=== PATIENT | male | born 1995 | race Caucasian/White ===

== ENCOUNTER 2017-04-24 12:03 | Emergency (ER) | payer BC ==
[2017-04-24] MEDS ORDERED: IBUPROFEN 600 MG TAB PO STA (12:48)
[2017-04-24] MEDS ORDERED: HYDROcodone/APAP 5-325MG 1 EACH TAB PO STA (12:49)
--- NOTE | 2017-04-24 12:57 | ED ---
Fall HPI - General Chief Complaint: Fall Stated Complaint: Fall Time Seen by Provider: 04/24/17 12:42 Source: patient, RN notes reviewed Mode of arrival: ambulatory - History of Present Illness Initial Comments: Patient is 22-year-old male presents to the emergency room for evaluation of fall injury. Patient states he was on a ladder doing work and fell backwards landing on his tailbone. Patient does state he landed on the cement. Patient denies head trauma or loss of consciousness. Patient states he got up and continued doing his yard work. Patient states the pain became more intense in his tailbone and radiating through his right hip. Patient states he is having 9 out of 10 pain. Patient states it hurts to walk. Patient states he now having some tingling going down his right leg. Patient denies leg weakness. Patient denies saddle anesthesia. Patient has urine or fecal incontinence. Patient denies taking anything for pain. Patient denies any other injuries during incident. Patient denies any history of low back pain. - Related Data Home Medications Medication Instructions Recorded Confirmed Dronabinol [Marinol] 2.5 mg PO TID 04/24/17 04/24/17 Ondansetron Odt [Zofran Odt] 4 mg PO Q8HR PRN 04/24/17 04/24/17 Previous Rx's Medication Instructions Recorded HYDROcodone/APAP 5-325MG [Seibert 1 tab PO Q6HR PRN #12 tab 04/24/17 5-325] Ibuprofen [Motrin] 600 mg PO Q6HR PRN #20 tab 04/24/17 Allergies Allergy/AdvReac Type Severity Reaction Status Date / Time No Known Allergies Allergy Verified 04/24/17 12:33 Review of Systems ROS Statement: Those systems with pertinent positive or pertinent negative responses have been documented in the HPI. ROS Other: All systems not noted in ROS Statement are negative. Past Medical History Additional Past Medical History / Comment(s): colitis History of Any Multi-Drug Resistant Organisms: None Reported Past Surgical History: No Surgical Hx Reported Past Psychological History: ADD/ADHD Smoking Status: Former smoker Past Alcohol Use History: Occasional Past Drug Use History: None Reported General Exam - General Exam Comments Initial Comments: Sitting on exam bed, no acute distress. Limitations: no limitations General appearance: alert, in no apparent distress Head exam: Present: atraumatic, normocephalic, normal inspection Eye exam: Present: normal appearance ENT exam: Present: normal exam Neck exam: Present: normal inspection Respiratory exam: Present: normal lung sounds bilaterally. Absent: respiratory distress Cardiovascular Exam: Present: regular rate, normal rhythm, normal heart sounds GI/Abdominal exam: Present: soft Extremities exam: Present: normal inspection Back exam: Present: vertebral tenderness (Lumbosacral spine and over the coccyx bone) Neurological exam: Present: alert, oriented X3, CN II-XII intact Psychiatric exam: Present: normal affect, normal mood Skin exam: Present: warm, dry, intact, normal color. Absent: rash Course Vital Signs 04/24/17 12:30 Temperature 97.4 F L Pulse Rate 87 Respiratory 17 Rate Blood Pressure 128/70 O2 Sat by Pulse 94 L Oximetry Medical Decision Making - Medical Decision Making Patient is a 22-year-old male presents emergency room for evaluation of fall injury. Patient complaining of low back and coccyx pain radiating into his right hip and leg. X-ray showed no acute findings, compression fractures. Patient noted to have spondylolisthesis of L5-S1. Results discussed with patient. Advised patient to ice and to rest. Will send patient home with pain medications and advised to return for worsening symptoms. Patient has no neuro deficits at this time. Patient states he understands everything that was discussed with him. Case discussed with Dr. Boyd. - Radiology Data Radiology results: report reviewed, image reviewed Disposition Clinical Impression: Spondylolisthesis at L5-S1 level, Fall, Contusion of coccyx Disposition: HOME SELF-CARE Condition: Good Instructions: Coccyx Injury (ED), Spondylolisthesis (ED) Additional Instructions: Take ibuprofen as needed for pain. Take Seibert as needed for severe pain. Ice on and off for 20 minutes at a time. Refrain from heavy lifting or strenuous physical activity. Please follow up with primary care provider in 1-2 days. If any new symptom arises or symptoms worsen, return to ER as soon as possible. Prescriptions: HYDROcodone/APAP 5-325MG [Seibert 5-325] 1 tab PO Q6HR PRN #12 tab PRN Reason: Pain Ibuprofen [Motrin] 600 mg PO Q6HR PRN #20 tab PRN Reason: Pain Referrals: Parker Hurt MD [Primary Care Provider] - 1-2 days Time of Disposition: 14:11
--- NOTE | 2017-04-24 13:28 | XR ---
Right hip HISTORY: Trauma and pain 2 views of the right hip, no comparisons Bone mineralization, joint spaces and alignment are maintained IMPRESSION: No fracture or dislocation is evident. Follow-up as indicated.
--- NOTE | 2017-04-24 13:38 | XR ---
EXAMINATION TYPE: XR sacrum coccyx DATE OF EXAM: 04/24/2017 COMPARISON: CT abdomen and pelvis January 01, 2015. HISTORY: Pain. TECHNIQUE: 2 views of sacrum and coccyx are obtained. FINDINGS: No acute displaced sacral or coccygeal fractures are identified. Sacral alar maintained. Sa croiliac joints are symmetric and felt within normal limits. Overlying soft tissue is unremarkable. IMPRESSION: Unremarkable study.
--- NOTE | 2017-04-24 14:00 | XR ---
Lumbosacral spine HISTORY: Pain 5 views of the lumbosacral spine There is spondylolysis bilaterally at L5. Anterolisthesis grade 1 is present at L5-S1, there is assoc iated loss of disc height. Lumbar vertebral bodies show preserved height and bone mineralization. The re is a gentle spinal curvature. IMPRESSION: Spondylolysis bilaterally at L5, spondylolisthesis L5-S1 with associated loss of disc hei ght.
[2017-04-24 14:27] VITALS: BP 111/68; PULSE 72; RESP 18; TEMP 98.3
== END 2017-04-24 14:27 | disposition home or self-care (01) ==
LOC: EC 12:03
DX: S30.0XXA Contusion of lower back and pelvis, initial encounter (principal); M43.17 Spondylolisthesis, lumbosacral region; M25.551 Pain in right hip; Z87.891 Personal history of nicotine dependence; Z79.899 Other long term (current) drug therapy; W11.XXXA Fall on and from ladder, initial encounter; Y92.009 Unspecified place in unspecified non-institutional (private) residence as the place of occurrence of the external cause; Y93.89 Activity, other specified
CPT/HCPCS: 72110; 72220; 73502; 99283

== ENCOUNTER 2018-10-09 17:17 | Emergency (ER) | payer BC ==
--- NOTE | 2018-10-09 18:02 | ED ---
General Adult HPI - General Chief complaint: Urogenital Stated complaint: Dysuria Time Seen by Provider: 10/09/18 17:52 Source: patient, RN notes reviewed Mode of arrival: ambulatory Limitations: no limitations - History of Present Illness Initial comments: Patient is a pleasant 23-year-old male presenting to the emergency Department with complaints of dysuria. Onset was this morning. Discomfort is only with urination. Patient denies any abdominal discomfort. Patient states there is an area of discomfort in the right inguinal region where he did feel a small knot. He states this is tender. No trauma. No history of similar symptoms previously. No urethral discharge. No fever. - Related Data Previous Rx's Medication Instructions Recorded Phenazopyridine [Pyridium] 200 mg PO TID #5 tablet 10/09/18 Sulfamethox-Tmp 800-160Mg [Bactrim 1 each PO Q12HR #20 tab 10/09/18 DS 800-160 mg] Allergies Allergy/AdvReac Type Severity Reaction Status Date / Time No Known Allergies Allergy Verified 10/09/18 17:57 Review of Systems ROS Statement: Those systems with pertinent positive or pertinent negative responses have been documented in the HPI. ROS Other: All systems not noted in ROS Statement are negative. Constitutional: Denies: fever Eyes: Denies: eye pain ENT: Denies: ear pain Respiratory: Denies: cough Cardiovascular: Denies: chest pain Endocrine: Denies: fatigue Gastrointestinal: Denies: abdominal pain, nausea, vomiting Genitourinary: Reports: dysuria. Denies: discharge Musculoskeletal: Denies: back pain Skin: Denies: rash Past Medical History Additional Past Medical History / Comment(s): colitis History of Any Multi-Drug Resistant Organisms: None Reported Past Surgical History: No Surgical Hx Reported Past Psychological History: ADD/ADHD Smoking Status: Former smoker Past Alcohol Use History: None Reported, Occasional Past Drug Use History: Marijuana General Exam Limitations: no limitations General appearance: alert, in no apparent distress Head exam: Present: atraumatic Eye exam: Present: normal appearance Neck exam: Present: normal inspection Respiratory exam: Present: normal lung sounds bilaterally Cardiovascular Exam: Present: regular rate, normal rhythm GI/Abdominal exam: Present: soft. Absent: tenderness exam: Present: normal inspection, testicular tenderness (Mild tenderness right testicle), other (Right inguinal with less than 1 cm nodular subcutaneous mobile area consistent with lymphadenopathy). Absent: scrotal swelling Extremities exam: Present: normal inspection Neurological exam: Present: alert Psychiatric exam: Present: normal affect, normal mood Skin exam: Present: normal color Course Vital Signs 10/09/18 10/09/18 17:36 19:50 Temperature 98.4 F 98.3 F Pulse Rate 83 84 Respiratory 18 16 Rate Blood Pressure 132/82 138/75 O2 Sat by Pulse 98 97 Oximetry Medical Decision Making - Medical Decision Making Patient reevaluated and resting comfortably in bed. Patient updated on results and need for follow-up. Patient is made aware of pending cultures and recommended follow-up with primary care physician. - Lab Data Lab Results 10/09/18 Range/Units 18:00 Urine Color Yellow Urine Appearance Cloudy (Clear) Urine pH 6.5 (5.0-8.0) Ur Specific [place] 1.020 (1.001-1.035) Urine Protein 1+ H (Negative) Urine Glucose (UA) Negative (Negative) Urine Ketones Trace H (Negative) Urine Blood Negative (Negative) Urine Nitrite Negative (Negative) Urine Bilirubin Negative (Negative) Urine Urobilinogen 2.0 (<2.0) mg/dL Ur Leukocyte Esterase Moderate H (Negative) Urine RBC 1 (0-5) /hpf Urine WBC 12 H (0-5) /hpf Ur Squamous Epith Cells 4 (0-4) /hpf Calcium Oxalate Crystal Few H (None) /hpf Hyaline Casts 8 H (0-2) /lpf Urine Mucus Many H (None) /hpf - Radiology Data Radiology results: report reviewed (Scrotal ultrasound shows no acute process.) , image reviewed (KUB reveals no acute process) Disposition Clinical Impression: Dysuria Disposition: HOME SELF-CARE Condition: Stable Instructions: Urinary Tract Infection in Men (ED) Additional Instructions: Please follow-up with primary care physician in the next couple days for recheck. Have primary care physician check for cultures. Return for fevers, increased pain, abdominal pain, worsening change in symptoms or other concerns. Prescriptions: Phenazopyridine [Pyridium] 200 mg PO TID #5 tablet Sulfamethox-Tmp 800-160Mg [Bactrim DS 800-160 mg] 1 each PO Q12HR #20 tab Is patient prescribed a controlled substance at d/c from ED?: No Referrals: Parker Hurt MD [Primary Care Provider] - 1-2 days Time of Disposition: 20:03
[2018-10-09 18:18] LABS: Appearance,Urine Cloudy (Clear); Bilirubin,Urine Negative (Negative); Blood,Urine Negative (Negative); Calcium Oxalate Crystals,Urine Few /hpf; Color,Urine Yellow; Glucose,Urine (UA) Negative (Negative); Hyaline Casts,Urine 8 /lpf (0-2); Ketones,Urine Trace (Negative); Leukocyte Esterase,Urine Moderate (Negative); Mucus,Urine Many /hpf; Nitrite,Urine Negative (Negative); PH, Urine 6.5 (5.0-8.0); Protein,Urine 1+ (Negative); RBC,Urine 1 /hpf (0-5); Squamous Epithelial Cell,Urine 4 /hpf (0-4); WBC,Urine 12 /hpf (0-5)
--- NOTE | 2018-10-09 19:17 | US ---
EXAMINATION TYPE: US scrotum with doppler. Grayscale and color Doppler Duplex imaging performed of t jocelyn scrotum. DATE OF EXAM: 10/09/2018 COMPARISON: NONE CLINICAL HISTORY: Pain. patient states no scrotal pain, but RLQ pain during urination EXAM MEASUREMENTS: TESTICLES: Right Testicle: 4.7 x 3.1 x 2.5cm Left Testicle: 4.4 x 3.1 x 2.2cm EPIDIDYMIS HEAD: Right Epididymis: 1.3cm Left Epididymis: 1.2cm Doppler performed to assess for testicular vascularity; good bilateral color flow and waveforms are s een. There is no evidence of testicular torsion. Presence of hydroceles: no Presence of varicoceles: no IMPRESSION: No acute process.
--- NOTE | 2018-10-09 19:45 | XR ---
EXAMINATION TYPE: XR KUB portable, 2 supine views DATE OF EXAM: 10/09/2018 COMPARISON: 01/21/1949 HISTORY: Right-sided groin pain today TECHNIQUE: 2 supine views FINDINGS: There are no acute skeletal or soft tissue findings. The bowel gas pattern is negative, although gas distended stomach at the moment of x-ray exposure is appreciated. There is no evident pneumatosis. Pneumoperitoneum cannot be excluded with supine radiogr aphy. IMPRESSION: NEGATIVE EXAMINATION, DISCUSSED.
[2018-10-09 19:52] VITALS: BP 138/75; PULSE 84; RESP 16; TEMP 98.3
[2018-10-09] MEDS ORDERED: PHENAZOPYRIDINE 200 MG TAB PO STA (19:53)
[2018-10-11 01:26] LABS: C. trachomatis,PCR Negative (Neg,Equiv); Chlamydia trachomatis Source Urine; N. gonorrhoeae,PCR Negative (Neg,Equiv); Neisseria Source Urine
== END 2018-10-09 20:28 | disposition home or self-care (01) ==
LOC: EC 17:17
DX: R30.0 Dysuria (principal); Z87.19 Personal history of other diseases of the digestive system; Z87.891 Personal history of nicotine dependence
CPT/HCPCS: 74018; 76870; 81001; 87086; 87491; 87591; 93975; 99284

== ENCOUNTER 2019-02-17 12:08 | Inpatient (IN) | payer BC ==
[2019-02-17] MEDS ORDERED: ONDANSETRON 4 MG/2 ML VIAL IVP STA (12:52)
[2019-02-17] MEDS ORDERED: HYDROmorphone 1 MG/ML 1 ML SYRINGE IVP STA (12:52)
[2019-02-17] MEDS ORDERED: SODIUM CHLORIDE 0.9% 1,000 ML IV STA (12:52)
--- NOTE | 2019-02-17 12:54 | ED ---
General Adult HPI - General Chief complaint: Abdominal Pain Stated complaint: abdominal pain Time Seen by Provider: 02/17/19 12:20 Source: patient, RN notes reviewed Mode of arrival: ambulatory - History of Present Illness Initial comments: Patient is a pleasant 23-year-old male presenting to the emergency Department with right-sided abdominal discomfort. Patient does have history of ulcerative colitis with similar symptoms previously. Onset of symptoms was around 4 AM. Discomfort is worse than since that time. Discomfort does increase with movement. Patient has had nausea with an episode of emesis. patient diarrhea. No dysuria or hematuria. No fever. - Related Data Previous Rx's Medication Instructions Recorded Phenazopyridine [Pyridium] 200 mg PO TID #5 tablet 10/09/18 Sulfamethox-Tmp 800-160Mg [Bactrim 1 each PO Q12HR #20 tab 10/09/18 DS 800-160 mg] Allergies Allergy/AdvReac Type Severity Reaction Status Date / Time No Known Allergies Allergy Verified 02/17/19 12:19 Review of Systems ROS Statement: Those systems with pertinent positive or pertinent negative responses have been documented in the HPI. ROS Other: All systems not noted in ROS Statement are negative. Constitutional: Denies: fever, chills Eyes: Denies: eye pain ENT: Denies: ear pain Respiratory: Denies: cough, dyspnea Cardiovascular: Denies: chest pain Endocrine: Denies: fatigue Gastrointestinal: Reports: abdominal pain, nausea, vomiting Genitourinary: Denies: dysuria Musculoskeletal: Denies: back pain Skin: Denies: rash Neurological: Denies: weakness Past Medical History Additional Past Medical History / Comment(s): colitis kidney stones History of Any Multi-Drug Resistant Organisms: None Reported Past Surgical History: No Surgical Hx Reported Past Psychological History: ADD/ADHD Smoking Status: Current some day smoker Past Alcohol Use History: None Reported, Occasional Past Drug Use History: Marijuana General Exam Limitations: no limitations General appearance: alert, in no apparent distress Head exam: Present: atraumatic Eye exam: Present: normal appearance, PERRL ENT exam: Present: normal oropharynx Neck exam: Present: normal inspection Respiratory exam: Present: normal lung sounds bilaterally Cardiovascular Exam: Present: regular rate, normal rhythm Expanded Peripheral pulses: 2+: Posterior Tibialis (R), Posterior Tibialis (L), Dorsalis Pedis (R), Dorsalis Pedis (L) GI/Abdominal exam: Present: soft, tenderness (Mild to moderate tenderness right side of the abdomen). Absent: distended, guarding, rebound, rigid Extremities exam: Present: normal inspection. Absent: pedal edema, calf tenderness Neurological exam: Present: alert Psychiatric exam: Present: normal affect, normal mood Skin exam: Present: normal color Course Vital Signs 02/17/19 02/17/19 02/17/19 12:16 14:22 15:30 Temperature 97.9 F Pulse Rate 98 75 57 L Respiratory 16 18 18 Rate Blood Pressure 148/88 138/82 141/62 O2 Sat by Pulse 98 95 98 Oximetry Medical Decision Making - Medical Decision Making Patient reevaluated twice and still with continued symptoms. Patient updated on results and plan. Dr. cooley has been paged, covering for Dr. Hurt. - Lab Data Result diagrams: 02/17/19 13:13 02/17/19 13:13 Lab Results 02/17/19 02/17/19 02/17/19 Range/Units 13:13 13:13 13:13 WBC 9.1 (3.8-10.6) k/uL RBC 5.26 (4.30-5.90) m/uL Hgb 15.7 (13.0-17.5) gm/dL Hct 47.0 (39.0-53.0) % MCV 89.3 (80.0-100.0) fL MCH 29.9 (25.0-35.0) pg MCHC 33.5 (31.0-37.0) g/dL RDW 12.4 (11.5-15.5) % Plt Count 270 (150-450) k/uL Neutrophils % 74 % Lymphocytes % 18 % Monocytes % 5 % Eosinophils % 2 % Basophils % 0 % Neutrophils # 6.7 (1.3-7.7) k/uL Lymphocytes # 1.6 (1.0-4.8) k/uL Monocytes # 0.4 (0-1.0) k/uL Eosinophils # 0.1 (0-0.7) k/uL Basophils # 0.0 (0-0.2) k/uL PT 10.7 (9.0-12.0) sec INR 1.0 (<1.2) APTT 30.0 (22.0-30.0) sec Sodium 136 L (137-145) mmol/L Potassium 4.5 (3.5-5.1) mmol/L Chloride 98 (98-107) mmol/L Carbon Dioxide 28 (22-30) mmol/L Anion Gap 10 mmol/L BUN 5 L (9-20) mg/dL Creatinine 0.76 (0.66-1.25) mg/dL Est GFR (CKD-EPI)AfAm >90 (>60 ml/min/1.73 sqM) Est GFR (CKD-EPI)NonAf >90 (>60 ml/min/1.73 sqM) Glucose 92 (74-99) mg/dL Calcium 10.0 (8.4-10.2) mg/dL Total Bilirubin 0.8 (0.2-1.3) mg/dL AST 26 (17-59) U/L ALT 32 (21-72) U/L Alkaline Phosphatase 64 (38-126) U/L Total Protein 8.0 (6.3-8.2) g/dL Albumin 4.7 (3.5-5.0) g/dL Amylase 55 (30-110) U/L Lipase 24 (23-300) U/L Urine Color Urine Appearance (Clear) Urine pH (5.0-8.0) Ur Specific [place] (1.001-1.035) Urine Protein (Negative) Urine Glucose (UA) (Negative) Urine Ketones (Negative) Urine Blood (Negative) Urine Nitrite (Negative) Urine Bilirubin (Negative) Urine Urobilinogen (<2.0) mg/dL Ur Leukocyte Esterase (Negative) 02/17/19 Range/Units 13:13 WBC (3.8-10.6) k/uL RBC (4.30-5.90) m/uL Hgb (13.0-17.5) gm/dL Hct (39.0-53.0) % MCV (80.0-100.0) fL MCH (25.0-35.0) pg MCHC (31.0-37.0) g/dL RDW (11.5-15.5) % Plt Count (150-450) k/uL Neutrophils % % Lymphocytes % % Monocytes % % Eosinophils % % Basophils % % Neutrophils # (1.3-7.7) k/uL Lymphocytes # (1.0-4.8) k/uL Monocytes # (0-1.0) k/uL Eosinophils # (0-0.7) k/uL Basophils # (0-0.2) k/uL PT (9.0-12.0) sec INR (<1.2) APTT (22.0-30.0) sec Sodium (137-145) mmol/L Potassium (3.5-5.1) mmol/L Chloride (98-107) mmol/L Carbon Dioxide (22-30) mmol/L Anion Gap mmol/L BUN (9-20) mg/dL Creatinine (0.66-1.25) mg/dL Est GFR (CKD-EPI)AfAm (>60 ml/min/1.73 sqM) Est GFR (CKD-EPI)NonAf (>60 ml/min/1.73 sqM) Glucose (74-99) mg/dL Calcium (8.4-10.2) mg/dL Total Bilirubin (0.2-1.3) mg/dL AST (17-59) U/L ALT (21-72) U/L Alkaline Phosphatase (38-126) U/L Total Protein (6.3-8.2) g/dL Albumin (3.5-5.0) g/dL Amylase (30-110) U/L Lipase (23-300) U/L Urine Color Light Yellow Urine Appearance Clear (Clear) Urine pH 6.5 (5.0-8.0) Ur Specific [place] 1.005 (1.001-1.035) Urine Protein Negative (Negative) Urine Glucose (UA) Negative (Negative) Urine Ketones Negative (Negative) Urine Blood Negative (Negative) Urine Nitrite Negative (Negative) Urine Bilirubin Negative (Negative) Urine Urobilinogen <2.0 (<2.0) mg/dL Ur Leukocyte Esterase Negative (Negative) - Radiology Data Radiology results: report reviewed (Computed tomography scan of the abdomen and pelvis shows air filled colon, otherwise no acute process.), image reviewed (Abdominal x-ray reveals no acute process. Increased air in the intestines.) Disposition Clinical Impression: Abdominal pain Disposition: ADMITTED IP TO THIS HOSP Is patient prescribed a controlled substance at d/c from ED?: No Referrals: Parker Hurt MD [Primary Care Provider] - 1-2 days Decision Time: 16:04
[2019-02-17 13:25] LABS: Appearance,Urine Clear (Clear); Bilirubin,Urine Negative (Negative); Blood,Urine Negative (Negative); Color,Urine Light Yellow; Glucose,Urine (UA) Negative (Negative); Ketones,Urine Negative (Negative); Leukocyte Esterase,Urine Negative (Negative); Nitrite,Urine Negative (Negative); PH, Urine 6.5 (5.0-8.0); Protein,Urine Negative (Negative); Specific Gravity,Urine 1.005 (1.001-1.035); Urobilinogen,Urine <2.0 mg/dL (<2.0)
[2019-02-17 13:26] LABS: Basophils % (A) 0 %; Eosinophils # (A) 0.1 k/uL (0-0.7); Eosinophils % (A) 2 %; HGB 15.7 gm/dL (13.0-17.5); Lymphocytes # (A) 1.6 k/uL (1.0-4.8); Lymphocytes % (A) 18 %; MCH 29.9 pg (25.0-35.0); MCHC 33.5 g/dL (31.0-37.0); MCV 89.3 fL (80.0-100.0); Mean Platelet Volume 6.4; Monocytes # (A) 0.4 k/uL (0-1.0); Monocytes % (A) 5 %; Neutrophils # (A) 6.7 k/uL (1.3-7.7); Neutrophils % (A) 74 %; Platelet Count 270 k/uL (150-450); RBC 5.26 m/uL (4.30-5.90); RDW 12.4 % (11.5-15.5); WBC 9.1 k/uL (3.8-10.6)
[2019-02-17 13:36] LABS: ALT 32 U/L (21-72); AST 26 U/L (17-59); Albumin 4.7 g/dL (3.5-5.0); Alkaline Phosphatase 64 U/L (38-126); Amylase 55 U/L (30-110); Anion Gap 10 mmol/L; Blood Urea Nitrogen 5 mg/dL (9-20); Carbon Dioxide 28 mmol/L (22-30); Chloride 98 mmol/L (98-107); Glucose 92 mg/dL (74-99); Lipase 24 U/L (23-300); Potassium 4.5 mmol/L (3.5-5.1); Sodium 136 mmol/L (137-145); Total Bilirubin 0.8 mg/dL (0.2-1.3)
[2019-02-17 13:40] LABS: Prothrombin Time 10.7 sec (9.0-12.0)
--- NOTE | 2019-02-17 13:51 | CT ---
EXAMINATION TYPE: CT abdomen pelvis wo con DATE OF EXAM: 02/17/2019 COMPARISON: None INDICATION: Rt flank pain DLP: 376.1 mGycm, Automated exposure control for dose reduction was used. CONTRAST: 0 mL of Isovue 300. Study performed without Oral Contrast TECHNIQUE: Axial images were obtained from above the diaphragm to the pubic rami in the axial plane a t 5 mm thick sections. Reconstructed images are reviewed on the computer in the coronal plane. FINDINGS: Limited CT sections are obtained the lung bases. The lung bases are clear. CT ABDOMEN: Liver: Normal Spleen: Normal Pancreas: Normal Adrenal glands: The adrenal glands are normal. Gallbladder: Normal Kidneys: No masses are evident. No hydronephrosis is present. No cysts are present. No renal or ur eteral stones are identified. No hydroureter is evident. Aorta: Normal Inferior vena cava: Normal. CT PELVIS: Loops of bowel within the abdomen and pelvis are normal. Studies without oral contrast limiting b owel evaluation. The ascending colon is somewhat prominent with air-filled colon. Appendix: Normal as visualized. Urinary bladder: Normal. Genitourinary structures: Prostate is normal Osseous structures: No suspicious lytic or sclerotic lesions. IMPRESSIONS: 1. Air-filled colon. The appendix is normal. 2. No suspicious renal stones hydronephrosis or hydroureter.
--- NOTE | 2019-02-17 13:52 | XR ---
EXAMINATION TYPE: XR KUB DATE OF EXAM: 02/17/2019 COMPARISON: CT performed same date INDICATION: Abdominal pain right-sided TECHNIQUE: Single view abdomen upright view FINDINGS: There is a normal bowel gas pattern. There is prominent air through the colon. Cecum measures 8.7 cm. No obstruction is identified. No free air is evident. No suspicious differential air-fluid levels ar e evident. Some nonspecific small bowel gas containing air is left midabdomen. Psoas margins are normal. No organomegaly is present. IMPRESSION: 1. Nonspecific abdomen
[2019-02-17] MEDS ORDERED: DICYCLOMINE 10 MG/ML 2 ML AMP IM STA (14:05)
[2019-02-17] MEDS ORDERED: NALOXONE 0.4 MG/ML 1 ML VIAL IV PRN (16:05)
[2019-02-17] MEDS ORDERED: MORPHINE SULFATE 2 MG/ML SYRINGE IVP STA (16:05)
--- NOTE | 2019-02-17 16:55 | US ---
EXAMINATION TYPE: US gallbladder DATE OF EXAM: 02/17/2019 COMPARISON: CT CLINICAL HISTORY: Pain. Right abdominal pain EXAM MEASUREMENTS: Liver Length: 13.0 cm Gallbladder Wall: 0.2 cm CBD: 0.4 cm Right Kidney: 9.9 x 6.1x 5.3 cm Pancreas: Obscured by bowel gas Liver: wnl Gallbladder: wnl Evidence for sonographic Chew's sign: no CBD: wnl Right Kidney: No hydronephrosis or masses seen; initially limited views due to overlying bowel gas IMPRESSION: No gallstones or dilated ducts. Negative exam.
[2019-02-17 17:12] VITALS: BMI 22.0
[2019-02-17] MEDS: SODIUM CHLORIDE 0.9% 1,000 ML IV SCH (17:18)
[2019-02-17] MEDS: HYDROmorphone 1 MG/ML 1 ML SYRINGE IVP PRN (19:45)
[2019-02-18] MEDS: SODIUM CHLORIDE 0.9% 1,000 ML IV SCH ×3 (00:08→18:59)
[2019-02-18] MEDS: HYDROmorphone 1 MG/ML 1 ML SYRINGE IVP PRN ×4 (07:46→22:32)
[2019-02-18] MEDS: ONDANSETRON 4 MG/2 ML VIAL IVP PRN (07:46)
[2019-02-18] MEDS: PANTOPRAZOLE 40 MG/10 ML VIAL IV SCH (07:53)
[2019-02-18] MEDS ORDERED: KETOROLAC 30 MG/ML 1 ML VIAL IVP STA (12:18)
--- NOTE | 2019-02-18 15:02 | P.HPIM ---
History of Present Illness H&P Date: 02/18/19 Chief Complaint: Abdominal pain Patient is a 23-year-old male with a known history of ulcerative colitis diagnosed with colonoscopy, currently follows with gastroenterology at [facility], renal stones, ADD/ADHD and nicotine addiction and marijuana use came to ER with complaints of abdominal pain mainly right lower quadrant and also right flank pain. Patient says that he started having pain since yesterday around 4 AM which woke him up from sleep. Denied any fever or chills. Denied any diarrhea or bloody stools. She did have nausea and episode of vomiting. Pain gets worse with moving to the side. Denied any dysuria or hematuria. Denied any recent infection. No complaints of chest pain or shortness of breath. Denied any fall or injury. CT of the abdomen showed 8:15:. The appendix is normal. No suspicious renal stones, hydronephrosis or hydroureter. Ultrasound OF THE ABDOMEN SHOWED NO GALLSTONES ARE DILATED DUCTS. NEGATIVE EXAM. KUB x-ray showed nonspecific abdomen. Laboratory data within normal limits and new leukocytosis. Review of Systems Constitutional: Patient denies any fever or chills . No generalized weakness or weight loss. Abdomen: Patient does have nausea and episode of vomiting. Does have abdominal pain right lower quadrant and right flank pain. No diarrhea.. Cardiovascular: Patient denies any chest pain or short of breath no palpitations. Respiratory: patient denied any cough is from production. No shortness of breath Neurologic: Patient denied any numbness or tingling headache. Musculoskeletal: Patient denies any complaints of joint swelling or deformity. Skin: Negative Psychiatric: Negative Endocrine: No heat or cold intolerance. No recent weight gain. Genitourinary: No dysuria or hematuria. All other 14 point ROS negative except the above Past Medical History Additional Past Medical History / Comment(s): Ulcerative Colitis (2013) dx with colonoscopy. kidney stones History of Any Multi-Drug Resistant Organisms: None Reported Past Surgical History: No Surgical Hx Reported Additional Past Surgical History / Comment(s): Colonoscopy x2, endoscopy Past Psychological History: ADD/ADHD Smoking Status: Current some day smoker Past Alcohol Use History: None Reported, Occasional Past Drug Use History: Marijuana - Past Family History Father Additional Family Medical History / Comment(s): Diverticulitis. Medications and Allergies Home Medications Medication Instructions Recorded Confirmed Type Acetaminophen [Tylenol] 1,000 mg PO Q6H 02/17/19 02/17/19 History Allergies Allergy/AdvReac Type Severity Reaction Status Date / Time No Known Allergies Allergy Verified 02/17/19 16:42 Physical Exam Vitals: Vital Signs Temp Pulse Pulse Resp BP BP Pulse Ox 02/18/19 07:45 98.0 F 54 L 16 121/60 98 02/18/19 04:00 97.7 F 55 L 16 95/53 100 02/18/19 03:43 16 02/17/19 23:59 16 02/17/19 20:00 97.6 F 54 L 16 118/70 99 02/17/19 16:57 97.7 F 51 L 16 154/92 97 02/17/19 16:32 98.0 F 63 18 128/70 97 02/17/19 15:30 75 18 141/62 98 02/17/19 14:22 75 18 138/82 95 02/17/19 12:16 97.9 F 98 16 148/88 98 Intake and Output 02/17/19 02/18/19 02/18/19 22:59 06:59 14:59 Intake Total 960 Balance 960 Intake: Intake, IV Titration 960 Amount Sodium Chloride 0.9% 1, 960 000 ml @ 120 mls/hr IV . Q8H20M [facility] Rx#:[id number] Other: Voiding Method Toilet Toilet Toilet # Voids 1 1 PHYSICAL EXAMINATION: Patient is lying in the bed comfortably, no acute distress, awake alert and oriented.. HEENT: Normocephalic. Neck is supple. Pupils reactive. Nostrils clear. Oral cavity is moist. Ears reveal no drainage. Neck reveals no JVD, carotid bruits, or thyromegaly. CHEST EXAMINATION: Trachea is central. Symmetrical expansion. Lung zavala clear to auscultation and percussion. CARDIAC: Normal S1, S2 with no gallops. No murmurs ABDOMEN: Soft. Bowel sounds normal. No organomegaly. No abdominal bruits. Right flank pain and right lower rib cage tenderness. Right lower quadrant mild tenderness. Extremities: reveal no edema. No clubbing or cyanosis Neurologically awake, alert, oriented x3 with well-coordinated movements. No focal deficits noted Skin: No rash or skin lesions. Psychiatric: Coperative. Nonsuicidal Musculoskeletal: No joint swelling or deformity. Normal range of motion. Results CBC & Chem 7: 02/17/19 13:13 02/17/19 13:13 Labs: Abnormal Lab Results - Last 24 Hours (Table) 02/17/19 Range/Units 13:13 Sodium 136 L (137-145) mmol/L BUN 5 L (9-20) mg/dL Thrombosis Risk Factor Assmnt - DVT/VTE Prophylaxis DVT/VTE Prophylaxis: Pharmacologic Prophylaxis ordered - Choose All That Apply Any of the Below Risk Factors Present?: No Other Risk Factors: No Thrombosis Risk Factor Assessment Level: Very Low Risk Assessment and Plan Assessment: Right lower quadrant and right flank pain. Colitis versus musculoskeletal. Workup is negative so far. History of ulcerative colitis with colonoscopy in 2013. Currently not on any medications. On follow with GI at [facility] History of renal stones ADD/ADHD Nicotine addiction Marijuana use DVT prophylaxis Plan: Patient will be continued on IV hydration and pain management. Currently on Dilaudid IV. Patient will be given a dose of Toradol 30 mg 1. Gen. surgery was consulted. will check UDS. Smoking cessation and marijuana use has been counseled extensively. Symptomatic management for nausea. Further recommendations based on the clinical course. Time with Patient: Greater than 30
--- NOTE | 2019-02-18 15:56 | P.GSCN ---
History of Present Illness Consult date: 02/18/19 History of present illness: CHIEF COMPLAINT: Right upper quadrant and right lower quadrant abdominal pain HISTORY OF PRESENT ILLNESS: The patient is a 23 year old male who presents with acute on chronic right-sided dull abdominal pain ongoing for over 6 years. He reports at age of [age] years old that he had a colonoscopy and had been diagnosed also with ulcerative colitis at that time. His last colonoscopy was performed [facility] 2 years ago. 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 Reports intolerance to foods with skin. He also reports fatty food intolerance. He reports pain is more crampy in nature along the right upper quadrant to right shoulder after eating fatty greasy foods. Last bowel movement was 3 days ago a normal appearance although bowel movements are usually daily. He denies any blood in stools. He presented with moderate to severe crampy right upper quadrant abdominal pain radiating to the right l ower quadrant with tenderness that led to his admission. He also reports passing flatus. Pain is positional along the right side with movement. PAST MEDICAL HISTORY: See list. PAST SURGICAL HISTORY: See list. MEDICATIONS: See list. ALLERGIES: See list. SOCIAL HISTORY: Tobacco abuse including marijuana use FAMILY HISTORY: Diverticulitis in father REVIEW OF ORGAN SYSTEMS: CONSTITUTIONAL: No fevers or chills. EYES: Denies any trouble with vision. No glasses. HEENT: No difficulties with hearing. No nosebleeds. No difficulty swallowing. RESPIRATORY: Denies pneumonia. Denies any troubles with breathing or dyspnea on exertion. CARDIOVASCULAR: Denies any chest pain, palpitations, or recent heart attacks. GASTROINTESTINAL: Has fatty food intolerance. Has change in bowel habits and gas bloat. GENITOURINARY: Denies any blood in urine or increased urinary frequency. NEUROLOGICAL: Denies any numbness or tingling along the distal extremities. No seizure disorders or headaches. MUSCULOSKELETAL: Denies any back pain, stiffness or joint arthritis. SKIN: No current skin cancer. No rash. PSYCHIATRIC: Denies current depression or suicidal thoughts. ENDOCRINE: Denies current thyroid disorders. Denies any blood sugar glucose intolerance. HEME/LYMPHATIC: Denies any lumps and bumps around the neck. No recent deep venous thrombosis. ALLERGY/IMMUNOLOGY: No immunoglobulin therapy. No immune deficiencies. BREAST: Denies current breast lumps, pain or nipple discharge. PHYSICAL EXAM: VITALS: Reviewed CONSTITUTIONAL: Well developed and in no acute distress. EYES: Conjuctivae without sclera icterus. Pupils are equally round and reactive to light. Extraocular movements grossly intact. HEAD, EARS, NOSE, THROAT: Moist buccal mucosa. Head is atraumatic, normocephali c. Hears conversational speech. No nasal drainage. Good dentition. NECK: Supple. No JV distention. No thyroidomegaly. RESPIRATORY: Non-labored respirations and equal bilateral excursions. No gross wheezes. CARDIOVASCULAR: Regular rate and rhythm. Extremities without edema. ABDOMEN: No hepatomegaly. No peritonitis. No gross distention. LYMPH: No neck lymphadenopathy. No axillary lymphadenopathy. MUSCULOSKELETAL: Nail and fingers with good capillary refill. SKIN: Warm and well perfused with good skin turgor. NEUROLOGIC: Cranial nerves I through XII grossly intact. No focal or latera lizing signs. PSYCH: Appropriate affect. Alert and oriented to person, place and time. Displays appropriate insight. CLINCAL LABS: Reviewed without leukocytosis RADIOLOGY: Report reviewed Without pneumoperitoneum IMAGING: Independently reviewed sure moderate gases distention of the cecum incl uding ascending colon with decreased caliber along the descending colon. RECORDS: previous old records reviewed of ultrasound without gallstones in prior admissions ASSESSMENT: 1 Right upper quadrant and right lower quadrant abdominal pain 2. Fatty food intolerance, gallbladder disorder 3. Inflammatory bowel disease per history 4. Intermittent cecal volvulus PLAN: 1. Recommend GI consultation for work-up of ulcerative colitis 2. Recommend HIDA scan to evaluate for gallbladder disorder 3. May start diet after completion of HIDA scan tonight 4. IV fluid hydration. 5. History also highly suspicious for cecal volvulus given his age however no evidence of bowel obstruction. 6. Continue outpatient assessment described. 7. Cholecystectomy feasible for gallbladder disorder pending results of studies 8. Recommend CRP for inflammatory bowel disease Thank you for this kind consultation. Past Medical History Additional Past Medical History / Comment(s): Ulcerative Colitis (2014) dx with colonoscopy. kidney stones History of Any Multi-Drug Resistant Organisms: None Reported Past Surgical History: No Surgical Hx Reported Additional Past Surgical History / Comment(s): Colonoscopy x2, endoscopy Past Psychological History: ADD/ADHD Smoking Status: Current some day smoker Past Alcohol Use History: None Reported, Occasional Past Drug Use History: Marijuana - Past Family History Father Additional Family Medical History / Comment(s): Diverticulitis. Medications and Allergies Home Medications Medication Instructions Recorded Confirmed Type Acetaminophen [Tylenol] 1,000 mg PO Q6H 02/17/19 02/17/19 History Allergies Allergy/AdvReac Type Severity Reaction Status Date / Time No Known Allergies Allergy Verified 02/17/19 16:42 Surgical - Exam Vital Signs Temp Pulse Resp BP Pulse Ox 97.9 F 98 16 148/88 98 02/17/19 12:16 02/17/19 12:16 02/17/19 12:16 02/17/19 12:16 02/17/19 12:16 Results - Labs 02/17/19 13:13 02/17/19 13:13 - Imaging CT scan - abdomen: report reviewed, image reviewed CT scan - pelvis: report reviewed, image reviewed US - abdomen: report reviewed, image reviewed Assessment and Plan (1) Gallbladder disorder Current Visit: Yes Status: Acute Code(s): K82.9 - DISEASE OF GALLBLADDER, UNSPECIFIED SNOMED Code(s): 10601415 (2) Ulcerative colitis Current Visit: Yes Status: Acute Code(s): K51.90 - ULCERATIVE COLITIS, UNSPECIFIED, WITHOUT COMPLICATIONS SNOMED Code(s): 07458455 (3) Right upper quadrant abdominal pain Current Visit: Yes Status: Acute Code(s): R10.11 - RIGHT UPPER QUADRANT PAIN SNOMED Code(s): 883362839 (4) Right lower quadrant pain Current Visit: Yes Status: Acute Code(s): R10.31 - RIGHT LOWER QUADRANT PAIN SNOMED Code(s): 877409511 (5) Tobacco use disorder, continuous Current Visit: Yes Status: Acute Code(s): F17.209 - NICOTINE DEPENDENCE, UNSP, W UNSP NICOTINE-INDUCED DISORDERS SNOMED Code(s): 041828878 (6) Marijuana use Current Visit: Yes Status: Acute Code(s): F12.90 - CANNABIS USE, UNSPECIFIED, UNCOMPLICATED SNOMED Code(s): 099094605
[2019-02-18] MEDS: HEPARIN SODIUM,PORCINE 5,000 UNIT/ML 1 ML VIAL SQ SCH (18:33)
--- NOTE | 2019-02-18 18:50 | NM ---
EXAMINATION TYPE: NM hepatobiliary w CCK DATE OF EXAM: 02/18/2019 COMPARISON: Gallbladder FEBRUARY 17, 2019 HISTORY: Gallbladder disorder per order. Epigastric pain with heartburn and reflux and nausea for pat ient. TECHNIQUE: After the intravenous administration of 4.72 mCi Tc 99m Mebrofenin hepatobiliary scintigra phy is performed. Immediate images post injection. FINDINGS: There is poor initial accumulation of tracer by the liver. The gallbladder is visualized within 15 m inutes. The small bowel activity is not well visualized even after 75 minutes. At 75 minutes CCK wa s administered, patient was injected with 1.44 mcg of Kinevac, and gallbladder ejection fraction is c alculated at 91 %, not deviated from the normal range. Therefore there is no scintigraphic evidence of cystic or common bile duct obstruction to suggest acute cholecystitis. IMPRESSION: Ejection fraction is 91%, some consider this abnormal or a hyperkinetic response.
[2019-02-19] MEDS: SODIUM CHLORIDE 0.9% 1,000 ML IV SCH ×4 (01:08→15:21)
[2019-02-19] MEDS: HEPARIN SODIUM,PORCINE 5,000 UNIT/ML 1 ML VIAL SQ SCH ×4 (01:08→23:13)
[2019-02-19] MEDS: PANTOPRAZOLE 40 MG/10 ML VIAL IV SCH (08:20)
[2019-02-19] MEDS: HYDROmorphone 1 MG/ML 1 ML SYRINGE IVP PRN ×4 (08:21→20:49)
--- NOTE | 2019-02-19 13:41 | P.PN ---
<Chloe Bautista Kvng - Last Filed: 02/19/19 15:11> Subjective Progress Note Date: 02/19/19 CHIEF COMPLAINT: Abdominal pain HISTORY OF PRESENT ILLNESS: Patient examined at the bedside this morning. Patient continues to complain of right-sided abdominal pain. Patient reports he had dinner last night and tolerated well, but has since been made NPO. Denies nausea or vomiting this morning. HIDA scan reveals EF of 91%. No scintigraphic evidence of cystic or common bile duct obstruction to suggest acute cholecystitis. No labs completed this morning. Vital signs stable. PHYSICAL EXAM: VITAL SIGNS: Reviewed. GENERAL: Well-developed in no acute distress. HEENT: No sclera icterus. Extraocular movements grossly intact. Moist buccal mucosa. Head is atraumatic, normocephalic. ABDOMEN: Soft. Nondistended. Positive bowel sounds. Tenderness upon palpation of right upper and lower quadrant. NEUROLOGIC: Alert and oriented. Cranial nerves II through XII grossly intact. ASSESSMENT: 1. Right upper and lower quadrant abdominal pain 2. Fatty food intolerance 3. History of inflammatory bowel disease PLAN: No surgical intervention per Dr. Taylor. Begin clear liquid diet. Await further recommendations from GI service. Nurse practitioner note has been reviewed by physician. Signing provider agrees with the documented findings, assessment, and plan of care. Objective - Vital Signs Vital signs: Vital Signs Temp 98.1 F 02/19/19 07:36 Pulse 56 L 02/19/19 07:36 Resp 18 02/19/19 07:36 BP 121/67 02/19/19 07:36 Pulse Ox 98 02/19/19 07:36 Intake & Output 02/18/19 02/19/19 02/19/19 18:59 06:59 18:59 Intake Total 960 Balance 960 Weight 71.713 kg Intake: Intake, IV Titration 960 Amount Sodium Chloride 0.9% 1, 960 000 ml @ 120 mls/hr IV . Q8H20M [facility] Rx#:[id number] Other: Voiding Method Toilet Toilet Toilet # Voids 1 1 1 # Bowel Movements 1 - Labs CBC & Chem 7: 02/17/19 13:13 02/17/19 13:13 Assessment and Plan (1) Abdominal pain Current Visit: Yes Status: Acute Code(s): R10.9 - UNSPECIFIED ABDOMINAL PAIN SNOMED Code(s): 14389533 (2) Gallbladder disorder Current Visit: Yes Status: Acute Code(s): K82.9 - DISEASE OF GALLBLADDER, UNSPECIFIED SNOMED Code(s): 34578831 (3) Right lower quadrant pain Current Visit: Yes Status: Acute Code(s): R10.31 - RIGHT LOWER QUADRANT PAIN SNOMED Code(s): 540827430 (4) Right upper quadrant abdominal pain Current Visit: Yes Status: Acute Code(s): R10.11 - RIGHT UPPER QUADRANT PAIN SNOMED Code(s): 159195778 (5) Tobacco use disorder, continuous Current Visit: Yes Status: Acute Code(s): F17.209 - NICOTINE DEPENDENCE, UNSP, W UNSP NICOTINE-INDUCED DISORDERS SNOMED Code(s): 760936693 (6) Ulcerative colitis Current Visit: Yes Status: Acute Code(s): K51.90 - ULCERATIVE COLITIS, UNSPECIFIED, WITHOUT COMPLICATIONS SNOMED Code(s): 54622072 <Elvira Taylor N - Last Filed: 02/19/19 19:35> Objective - Vital Signs Vital signs: Vital Signs Temp 98.1 F 02/19/19 15:27 Pulse 54 L 02/19/19 15:27 Resp 18 02/19/19 15:27 BP 101/56 02/19/19 15:27 Pulse Ox 97 02/19/19 15:27 Intake & Output 02/19/19 02/19/19 02/20/19 06:59 18:59 06:59 Intake Total 1040 Balance 1040 Intake: Oral 1040 Other: Voiding Method Toilet Toilet # Voids 1 1 # Bowel Movements 1 - Labs CBC & Chem 7: 02/17/19 13:13 02/17/19 13:13 Assessment and Plan (1) Gallbladder disorder Current Visit: Yes Status: Acute Code(s): K82.9 - DISEASE OF GALLBLADDER, UNSPECIFIED SNOMED Code(s): 51661653 (2) Ulcerative colitis Current Visit: Yes Status: Acute Code(s): K51.90 - ULCERATIVE COLITIS, UNSPE CIFIED, WITHOUT COMPLICATIONS SNOMED Code(s): 72855706 (3) Right upper quadrant abdominal pain Current Visit: Yes Status: Acute Code(s): R10.11 - RIGHT UPPER QUADRANT PAIN SNOMED Code(s): 771681763 (4) Right lower quadrant pain Current Visit: Yes Status: Acute Code(s): R10.31 - RIGHT LOWER QUADRANT PAIN SNOMED Code(s): 733261371 (5) Tobacco use disorder, continuous Current Visit: Yes Status: Acute Code(s): F17.209 - NICOTINE DEPENDENCE, UNSP, W UNSP NICOTINE-INDUCED DISORDERS SNOMED Code(s): 142695628 (6) Marijuana use Current Visit: Yes Status: Acute Code(s): F12.90 - CANNABIS USE, UNSPECIFIED, UNCOMPLICATED SNOMED Code(s): 104258807 (7) Abnormal US (ultrasound) of abdomen Current Visit: Yes Status: Acute Code(s): R93.5 - ABN FINDINGS ON DX IMAGING OF ABD REGIONS, INC RETROPERITON SNOMED Code(s): 22431003448784484 Plan: Please see new assessment. Review of radiological images from ultrasound discordant from radiology report.
[2019-02-19] MEDS ORDERED: DICYCLOMINE 20 MG TAB PO STA (16:32)
[2019-02-19] MEDS ORDERED: DICYCLOMINE 20 MG TAB PO PRN (16:33)
--- NOTE | 2019-02-19 19:34 | P.PN ---
Subjective Progress Note Date: 02/19/19 CHIEF COMPLAINT: Right upper quadrant abdominal pain HISTORY OF PRESENT ILLNESS: The patient is a 23-year-old male who presented with acute onset right upper quadrant including right lower quadrant abdominal pain. Yesterday he had additional studies including ultrasound and HIDA scan. His family and mother was at bedside now confirms a family history of gallbladder disorder. He reports severe intense right upper quadrant crampy abdominal pain following fatty foods yesterday. Separately, his mother also reports family history of twisted bowel and ulcerative colitis in his grandmother. 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 For repeat review of organ systems, no new fevers or chills. No recent blood in stools since admission. No new musculoskeletal pain. PHYSICAL EXAM: VITAL SIGNS: Reviewed CONSTITUTIONAL: Well developed and in no acute distress. EYES: Conjuctivae without sclera icterus. Extraocular movements grossly intact. HEAD, EARS, NOSE, THROAT: Moist buccal mucosa. Head is atraumatic, normocephalic. Hears conversational speech. No nasal drainage. NECK: Supple. No thyroidomegaly. RESPIRATORY: Non-labored respirations and equal bilateral excursions. CARDIOVASCULAR: Palpable 2+ radial pulses. Regular rate and regular rhythm. ABDOMEN: Soft. No peritonitis. Tender right upper quadrant MUSCULOSKELETAL: No gross deformity of the lower extremities noted. No clubbing. No cyanosis. SKIN: Good skin turgor .Well perfused. NEUROLOGIC: Cranial nerves I through XII grossly intact. No focal or lateralizing signs. PSYCH: Appropriate affect. Alert and oriented to person, place and time. CLINCAL LABS: Reviewed. C-reactive protein within normal limits RADIOLOGY: Report reviewed IMAGES: HIDA scan personally reviewed demonstrating signaling of the gallbladder with 91% ejection fraction. Ultrasound the gallbladder personally reviewed demonstrating some mild debris within the gallbladder and a fold within the infundibulum of the gallbladder. Gallbladder wall mildly thickened at 22 mm. My findings are discordant with radiologist's report ASSESSMENT: 1. Right upper quadrant abdominal pain 2. Family history of gallbladder disease 3. Abnormal ultrasound of gallbladder PLAN: 1. Agree with GI assessment for scopes with his presumptive history of ulcerative colitis. 2. I personally reviewed his ultrasound which now demonstrates suspicious findings of debris within the gallbladder and functional gallbladder disease. We'll reassess after completion of his scope tomorrow. 3. Overall patient demonstrates no improvement of the symptoms despite IV fluid hydration and conservative management 4. Patient now considered for full hospitalization from prior observation status yesterday Objective - Vital Signs Vital signs: Vital Signs Temp 98.1 F 02/19/19 15:27 Pulse 54 L 02/19/19 15:27 Resp 18 02/19/19 15:27 BP 101/56 02/19/19 15:27 Pulse Ox 97 02/19/19 15:27 Intake & Output 02/19/19 02/19/19 02/20/19 06:59 18:59 06:59 Intake Total 1040 Balance 1040 Intake: Oral 1040 Other: Voiding Method Toilet Toilet # Voids 1 1 # Bowel Movements 1 - Labs CBC & Chem 7: 02/17/19 13:13 02/17/19 13:13 - Imaging and Cardiology US - abdomen: report reviewed, image reviewed HIDA - reviewed Assessment and Plan (1) Gallbladder disorder Current Visit: Yes Status: Acute Code(s): K82.9 - DISEASE OF GALLBLADDER, UNSPECIFIED SNOMED Code(s): 40310257 (2) Ulcerative colitis Current Visit: Yes Status: Acute Code(s): K51.90 - ULCERATIVE COLITIS, U NSPECIFIED, WITHOUT COMPLICATIONS SNOMED Code(s): 99103786 (3) Right upper quadrant abdominal pain Current Visit: Yes Status: Acute Code(s): R10.11 - RIGHT UPPER QUADRANT PAIN SNOMED Code(s): 450148168 (4) Right lower quadrant pain Current Visit: Yes Status: Acute Code(s): R10.31 - RIGHT LOWER QUADRANT PAIN SNOMED Code(s): 512625252 (5) Tobacco use disorder, continuous Current Visit: Yes Status: Acute Code(s): F17.209 - NICOTINE DEPENDENCE, UNSP, W UNSP NICOTINE-INDUCED DISORDERS SNOMED Code(s): 099492325 (6) Marijuana use Current Visit: Yes Status: Acute Code(s): F12.90 - CANNABIS USE, UNSPECIFIE D, UNCOMPLICATED SNOMED Code(s): 023940322 (7) Abnormal US (ultrasound) of abdomen Current Visit: Yes Status: Acute Code(s): R93.5 - ABN FINDINGS ON DX IMAGING OF ABD REGIONS, INC RETROPERITON SNOMED Code(s): 85850200761094354
--- NOTE | 2019-02-19 20:11 | P.CONS ---
History of Present Illness - Reason for Consult Consult date: 02/19/19 Abdominal pain Requesting physician: Jalen Jackson - Chief Complaint Abdominal pain - History of Present Illness 23-year-old male who presents to the hospital with complaints of abdominal pain. The patient reports 6 years of right upper quadrant abdominal pain. He de scribes pain as dull and intermittent. Pain is worse with fatty foods and can last from minutes to 1 hour in length. He reports nausea but no vomiting in association with the episodes of pain. He has undergone evaluation in the past with endoscopy but denies any history of peptic ulcer disease. The patient reports being prescribed Prilosec in the past with some improvement of his symptoms. He also has a questionable history of ulcerative colitis. He reports multiple colonoscopies originally 6 years ago and the last one 2 years ago at the [facility]. He is unclear on what part of the colon was involved and denies any prior history of steroid use or requiring maintenance medications for his colitis. He denies any odynophagia but reports intermittent episodes of solid food dysphagia. On presentation to the hospital WBC count 9.1, hemoglobin 15.7, INR 1. The patient had an ultrasound of the abdomen which was negative for any gallstones or dilated ducts. HIDA scan was significant for a 91% ejection fraction. Computed tomography scan performed showed an air filled colon with no renal pathology noted. Review of Systems REVIEW OF SYSTEMS: CONSTITUTIONAL: Denies any fevers, chills, weight change or fatigue. CARDIOVASCULAR: Denies any chest pain, palpitations high or low blood pressures RESPIRATORY: Denies any shortness of breath, hemoptysis or cough. GENITOURINARY: No dysuria or hematuria. MUSCULOSKELETAL: No weakness reported. SKIN: Denies any new rashes or lesions, jaundice or pallor. PSYCHIATRIC: Denies any depression or anxiety. NEUROLOGY: Denies headache, denies any new focal deficits. EARS/NOSE/THROAT: No recent hearing change, congestion, nasal discharge or sore throat. EYES: No pain in eyes, discharge or change in vision. GASTROINTESTINAL: As per HPI. Past Medical History Additional Past Medical History / Comment(s): Ulcerative Colitis (2013) dx with colonoscopy. kidney stones History of Any Multi-Drug Resistant Organisms: None Reported Past Surgical History: No Surgical Hx Reported Additional Past Surgical History / Comment(s): Colonoscopy x2, endoscopy Past Psychological History: ADD/ADHD Smoking Status: Current some day smoker Past Alcohol Use History: None Reported, Occasional Past Drug Use History: Marijuana - Past Family History Father Additional Family Medical History / Comment(s): Diverticulitis. Medications and Allergies Home Medications Medication Instructions Recorded Confirmed Type Acetaminophen [Tylenol] 1,000 mg PO Q6H 02/17/19 02/17/19 History Allergies Allergy/AdvReac Type Severity Reaction Status Date / Time No Known Allergies Allergy Verified 02/17/19 16:42 Physical Exam Vitals: Vital Signs Temp Pulse Resp BP Pulse Ox 02/19/19 15:27 98.1 F 54 L 18 101/56 97 02/19/19 07:36 98.1 F 56 L 18 121/67 98 02/19/19 03:07 48 L 17 02/18/19 23:43 98.2 F 49 L 16 96/52 97 02/18/19 23:41 46 L 17 Intake and Output 02/19/19 02/19/19 02/19/19 06:59 14:59 22:59 Intake Total 800 240 Balance 800 240 Intake: Oral 800 240 Other: Voiding Method Toilet Toilet Toilet # Voids 1 1 1 # Bowel Movements 1 On physical examination, patient appears comfortable in no apparent distress. HEAD: Normocephalic, atraumatic. EYES: No scleral icterus. No conjunctival injection. MOUTH: No lesions, tongue midline. NECK: Trachea midline, no gross abnormalities. CHEST: Clear to auscultation with no wheezing or rhonchi appreciated. HEART: Regular rate and rhythm. ABDOMEN: Soft, obese. Bowel sounds are positive. No organomegaly. No guarding or rigidity. EXTREMITIES: No pedal edema. SKIN: No rashes, no jaundice. NEUROLOGIC: Alert and oriented x3. No focal deficits. Results CBC & Chem 7: 02/17/19 13:13 02/17/19 13:13 CT scan - abdomen: report reviewed (Computed tomography scan performed showed an air filled colon with no renal pathology noted.) Assessment and Plan (1) Abdominal pain Narrative/Plan: Patient presenting with right-sided abdominal pain which appears to be chronic in nature. No pathology noted on computed tomography scan, ultrasound or HIDA. Unclear if pain is acutely worsened by a viral or bacterial gastroenteritis, due to functional bowel disorder, peptic ulcer disorder or other etiology. Current Visit: Yes Status: Acute Code(s): R10.9 - UNSPECIFIED ABDOMINAL PAIN SNOMED Code(s): 82761212 (2) Ulcerative colitis Narrative/Plan: Questionable history of ulcerative colitis diagnosed in 2013. Patient doesn't know the extent of his ulcerative colitis and denies ever requiring steroid therapy for maintenance medications for treatment of his ulcerative colitis. Current Visit: Yes Status: Acute Code(s): K51.90 - ULCERATIVE COLITIS, UNSPECIFIED, WITHOUT COMPLICATIONS SNOMED Code(s): 70831080 Plan: Supportive care Okay for diet Nothing by mouth after midnight Continue Protonix therapy We'll add Bentyl as needed for abdominal pain Plan for EGD tomorrow Continue to monitor her symptomatically Thank you for allowing us to participate in the care of the patient we will continue to follow
[2019-02-20] MEDS: SODIUM CHLORIDE 0.9% 1,000 ML IV SCH ×2 (03:40→19:36)
[2019-02-20] MEDS: HYDROmorphone 1 MG/ML 1 ML SYRINGE IVP PRN ×4 (07:42→21:58)
[2019-02-20] MEDS: HEPARIN SODIUM,PORCINE 5,000 UNIT/ML 1 ML VIAL SQ SCH ×3 (07:43→19:36)
[2019-02-20] MEDS: PANTOPRAZOLE 40 MG/10 ML VIAL IV SCH (07:43)
--- NOTE | 2019-02-20 12:34 | P.PN ---
Subjective Progress Note Date: 02/20/19 CHIEF COMPLAINT: Abdominal pain HISTORY OF PRESENT ILLNESS: Patient examined at the bedside this morning. He reports he ate tacos last night and his pain became severe and he required IV narcotics. He continues to report abdominal pain, but it is improved since last night. Denies nausea or vomiting. Patient is scheduled for EGD today with Dr. Glalo PHYSICAL EXAM: VITAL SIGNS: Reviewed. GENERAL: Well-developed in no acute distress. HEENT: No sclera icterus. Extraocular movements grossly intact. Moist buccal mucosa. Head is atraumatic, normocephalic. ABDOMEN: Soft. Nondistended. Positive bowel sounds. Tenderness upon palpation of right upper and lower quadrant. NEUROLOGIC: Alert and oriented. Cranial nerves II through XII grossly intact. ASSESSMENT: 1. Right upper and lower quadrant abdominal pain 2. Fatty food intolerance 3. History of inflammatory bowel disease 4. Abnormal ultrasound of gallbladder PLAN: NPO. Patient to undergo EGD today by Dr. Gallo. Further recommendations from Dr. Taylor regarding gallbladder pending EGD results. Nurse practitioner note has been reviewed by physician. Signing provider agrees with the documented findings, assessment, and plan of care. Objective - Vital Signs Vital signs: Vital Signs Temp 98.5 F 02/20/19 07:27 Pulse 50 L 02/20/19 11:55 Resp 18 02/20/19 11:55 BP 120/67 02/20/19 07:27 Pulse Ox 99 02/20/19 07:27 Intake & Output 02/19/19 02/20/19 02/20/19 18:59 06:59 18:59 Intake Total 1040 480 Balance 1040 480 Intake: IV 480 Sodium Chloride 0.9% 1, 480 000 ml @ 120 mls/hr IV . Q8H20M [facility] Rx#:[id number] Oral 1040 Other: Voiding Method Toilet Toilet Toilet # Voids 1 1 1 - Labs CBC & Chem 7: 02/17/19 13:13 02/17/19 13:13 Assessment and Plan (1) Abdominal pain Current Visit: Yes Status: Acute Code(s): R10.9 - UNSPECIFIED ABDOMINAL PAIN SNOMED Code(s): 41479659 (2) Gallbladder disorder Current Visit: Yes Status: Acute Code(s): K82.9 - DISEASE OF GALLBLADDER, UNSPECIFIED SNOMED Code(s): 00077449 (3) Right lower quadrant pain Current Visit: Yes Status: Acute Code(s): R10.31 - RIGHT LOWER QUADRANT PAIN SNOMED Code(s): 348529269 (4) Right upper quadrant abdominal pain Current Visit: Yes Status: Acute Code(s): R10.11 - RIGHT UPPER QUADRANT PAIN SNOMED Code(s): 783309287 (5) Tobacco use disorder, continuous Current Visit: Yes Status: Acute Code(s): F17.209 - NICOTINE DEPENDENCE, UNSP, W UNSP NICOTINE-INDUCED DISORDERS SNOMED Code(s): 669804964 (6) Ulcerative colitis Current Visit: Yes Status: Acute Code(s): K51.90 - ULCERATIVE COLITIS, UNSPECIFIED, WITHOUT COMPLICATIONS SNOMED Code(s): 97009778
[2019-02-20] MEDS ORDERED: IV FLUID CONTINUATION 1,000 ML IV ONE (13:16)
[2019-02-20] MEDS ORDERED: PROPOFOL 10 MG/ML 20 ML VIAL IV ONE (13:16)
--- NOTE | 2019-02-20 13:39 | P.PCN ---
Date of Procedure: 02/20/19 Description of Procedure: BRIEF HISTORY: 23-year-old male who presents to the hospital with complaints of abdominal pain. The patient reports 6 years of right upper quadrant abdominal pain. He describes pain as dull and intermittent. Pain is worse with fatty foods and can last from minutes to 1 hour in length. He reports nausea but no vomiting in association with the episodes of pain. He has undergone evaluation in the past with endoscopy but denies any history of peptic ulcer disease. The patient reports being prescribed Prilosec in the past with some improvement of his symptoms. He also has a questionable history of ulcerative colitis. He reports multiple colonoscopies originally 6 years ago and the last one 2 years ago at the [facility]. He is unclear on what part of the colon was involved and denies any prior history of steroid use or requiring maintenance medications for his colitis. He denies any odynophagia but reports intermittent episodes of solid food dysphagia. On presentation to the hospital WBC count 9.1, hemoglobin 15.7, INR 1. The patient had an ultrasound of the abdomen which was negative for any gallstones or dilated ducts. HIDA scan was significant for a 91% ejection fraction. Computed tomography scan performed showed an air filled colon with no renal pathology noted. PROCEDURE PERFORMED: Esophagogastroduodenoscopy with biopsy. PREOPERATIVE DIAGNOSIS: Epigastric abdominal pain, esophageal dysphagia. ESTIMATED BLOOD LOSS: Minimal. IV sedation per anesthesia. PROCEDURE: After informed consent was obtained, the patient was brought into the endoscopy unit. IV sedation was administered by Anesthesia under continuous monitoring. Initially the Olympus GIF-190 video endoscope was inserted into the mouth. Esophagus intubated without any difficulty. It was gradually advanced into the stomach and duodenum and carefully examined. The bulb and the second part of the duodenum appeared normal, with biopsies taken. The scope at this time was withdrawn to the stomach, adequately insufflated with air, and upon careful examination, mucosa of the antrum, body, cardia and the fundus appeared grossly normal, there was mild to moderate gastritis with findings of scattered erythema and superficial erosions with biopsies taken of the antrum and body. A small hiatal hernia was noted. The scope was then withdrawn into the esophagus. The GE junction was located at 40 cm from the incisors. The esophagus appeared normal. There were no erosions or ulcerations seen and the patient tolerated the procedure well. IMPRESSION: 1. [id number] gastritis of the antrum and body, biopsied. 2. Small hiatal hernia. 3. Duodenal biopsies. RECOMMENDATIONS: The findings of this examination were discussed with the patient. Okay to resume diet. Would continue daily PPI therapy in the outpatient setting, with omeprazole 20 mg daily or Protonix 40 mg daily. Await pathology from biopsies. Continue Bentyl when he milligrams 4 times a day as needed for abdominal pain.
--- NOTE | 2019-02-20 20:01 | P.PN ---
Progress Note - Text Progress Note Date: 02/20/19 Patient still reports moderate to severe right upper quadrant pain with radiation to the right upper back. VITAL SIGNS: Reviewed CONSTITUTIONAL: Well developed and in no acute distress. EYES: Conjuctivae without sclera icterus. Extraocular movements grossly intact. HEAD, EARS, NOSE, THROAT: Moist buccal mucosa. Head is atraumatic, normocephalic. Hears conversational speech. No nasal drainage. NECK: Supple. No thyroidomegaly. RESPIRATORY: Non-labored respirations and equal bilateral excursions. CARDIOVASCULAR: Palpable 2+ radial pulses. Regular rate and regular rhythm. ABDOMEN: Soft. Tender right upper quadrant and epigastrium without peritonitis. MUSCULOSKELETAL: No gross deformity of the lower extremities noted. No clubbing. No cyanosis. SKIN: Good skin turgor .Well perfused. NEUROLOGIC: Cranial nerves I through XII grossly intact. No focal or lateralizing signs. PSYCH: Appropriate affect. Alert and oriented to person, place and time. EGD reviewed with hiatal hernia and gastritis with duodenum unremarkable. I did discuss with him the findings where he may still have abdominal pain following surgery despite clinical picture of gallbladder disorder. "I want my gallbladder out." Benefits and risks of surgery described and he wishes to proceed with cholecystectomy
[2019-02-20] MEDS: ONDANSETRON 4 MG/2 ML VIAL IVP PRN (21:59)
--- NOTE | 2019-02-21 00:23 | P.PN ---
Subjective Progress Note Date: 02/19/19 Principal diagnosis: Abdominal pain Patient is a 23-year-old male with a known history of ulcerative colitis diagnosed with colonoscopy, currently follows with gastroenterology at [facility], renal stones, ADD/ADHD and nicotine addiction and marijuana use came to ER with complaints of abdominal pain mainly right lower quadrant and also right flank pain. Patient says that he started having pain since yesterday around 4 AM which woke him up from sleep. Denied any fever or chills. Denied any diarrhea or bloody stools. She did have nausea and episode of vomiting. Pain gets worse with moving to the side. Denied any dysuria or hematuria. Denied any recent infection. No complaints of chest pain or shortness of breath. Denied any fall or injury. CT of the abdomen showed 8:15:. The appendix is normal. No suspicious renal stones, hydronephrosis or hydroureter. Ultrasound OF THE ABDOMEN SHOWED NO GALLSTONES ARE DILATED DUCTS. NEGATIVE EXAM. KUB x-ray showed nonspecific abdomen. Laboratory data within normal limits and new leukocytosis. 02/19/2019 Patient still complaining of abdominal pain mainly in the right flank and lower quadrant. No fever no chills. Patient was seen by GI and is planning for EGD tomorrow. HIDA scan showed his ejection fractions 91%, some consider this abdominal hyperkeratotic response. Gen. surgery is planning for any intervention at this time. No fever no chills. Patient is able tolerate clear liquids. Does have nausea. No episodes of vomiting. No chest pain or shortness of breath. Patient was started on Bentyl. Current medications reviewed. Objective - Vital Signs Vital signs: Vital Signs Temp 98.1 F 02/19/19 15:27 Pulse 54 L 02/19/19 15:27 Resp 18 02/19/19 20:00 BP 101/56 02/19/19 15:27 Pulse Ox 97 02/19/19 15:27 Intake & Output 02/19/19 02/19/19 02/20/19 06:59 18:59 06:59 Intake Total 1040 Balance 1040 Intake: Oral 1040 Other: Voiding Method Toilet Toilet Toilet # Voids 1 1 # Bowel Movements 1 - Exam PHYSICAL EXAMINATION: Patient is lying in the bed comfortably, no acute distress, awake alert and oriented.. HEENT: Normocephalic. Neck is supple. Pupils reactive. Nostrils clear. Oral cavity is moist. Ears reveal no drainage. Neck reveals no JVD, carotid bruits, or thyromegaly. CHEST EXAMINATION: Trachea is central. Symmetrical expansion. Lung zavala clear to auscultation and percussion. CARDIAC: Normal S1, S2 with no gallops. No murmurs ABDOMEN: Soft. Mild right-sided abdominal tenderness. Bowel sounds normal. No organomegaly. No abdominal bruits. Extremities: reveal no edema. No clubbing or cyanosis Neurologically awake, alert, oriented x3 with well-coordinated movements. No focal deficits noted Skin: No rash or skin lesions. Psychiatric: Coperative. Nonsuicidal Musculoskeletal: No joint swelling or deformity. Normal range of motion. - Labs CBC & Chem 7: 02/17/19 13:13 02/17/19 13:13 Assessment and Plan Assessment: Right lower quadrant and right flank pain. Colitis versus gastritis versus functional bowel disorder.. Workup is negative so far. History of ulcerative colitis with colonoscopy in 2013. Currently not on any medications. On follow with GI at [facility] History of renal stones ADD/ADHD Nicotine addiction Marijuana use DVT prophylaxis Plan: Patient will be continued on IV hydration and pain management. Currently on Dilaudid IV. Patient will be given a dose of Toradol 30 mg 1. Gen. surgery and GI is following.. Urinalysis is negative for infection. Smoking cessation and marijuana use has been counseled extensively. Symptomatic management for nausea. Further recommendations based on the clinical course. Time with Patient: Greater than 30
--- NOTE | 2019-02-21 00:26 | P.PN ---
Subjective Progress Note Date: 02/20/19 Principal diagnosis: Abdominal pain Patient is a 23-year-old male with a known history of ulcerative colitis diagnosed with colonoscopy, currently follows with gastroenterology at [facility], renal stones, ADD/ADHD and nicotine addiction and marijuana use came to ER with complaints of abdominal pain mainly right lower quadrant and also right flank pain. Patient says that he started having pain since yesterday around 4 AM which woke him up from sleep. Denied any fever or chills. Denied any diarrhea or bloody stools. She did have nausea and episode of vomiting. Pain gets worse with moving to the side. Denied any dysuria or hematuria. Denied any recent infection. No complaints of chest pain or shortness of breath. Denied any fall or injury. CT of the abdomen showed 8:15:. The appendix is normal. No suspicious renal stones, hydronephrosis or hydroureter. Ultrasound OF THE ABDOMEN SHOWED NO GALLSTONES ARE DILATED DUCTS. NEGATIVE EXAM. KUB x-ray showed nonspecific abdomen. Laboratory data within normal limits and new leukocytosis. 02/19/2019 Patient still complaining of abdominal pain mainly in the right flank and lower quadrant. No fever no chills. Patient was seen by GI and is planning for EGD tomorrow. HIDA scan showed his ejection fractions 91%, some consider this abdominal hyperkeratotic response. Gen. surgery is planning for any intervention at this time. No fever no chills. Patient is able tolerate clear liquids. Does have nausea. No episodes of vomiting. No chest pain or shortness of breath. Patient was started on Bentyl. 02/20/2019 Patient says that there is improvement in abdominal pain today. Patient is being converted on Bentyl. Underwent EGD today showed mild gastritis and hiatal hernia. Patient is being continued on Protonix as well. Patient is still complaining of right upper quadrant pain sometimes radiate into the back. General surgery is planning for cholecystectomy tomorrow. Patient wishes to proceed with the procedure. Otherwise no fever no chills. No chest pain or shortness breath. Current medications reviewed. Objective - Vital Signs Vital signs: Vital Signs Temp 98.3 F 02/20/19 18:42 Pulse 59 L 02/20/19 18:42 Resp 15 02/20/19 20:00 BP 118/64 02/20/19 18:42 Pulse Ox 99 02/20/19 18:42 Intake & Output 02/20/19 02/20/19 02/21/19 06:59 18:59 06:59 Intake Total 480 544 Balance 480 544 Intake: IV 480 100 Sodium Chloride 0.9% 1, 480 000 ml @ 120 mls/hr IV . Q8H20M [facility] Rx#:[id number] Oral 444 Other: Voiding Method Toilet Toilet Toilet # Voids 1 1 2 - Exam PHYSICAL EXAMINATION: Patient is lying in the bed comfortably, no acute distress, awake alert and oriented.. HEENT: Normocephalic. Neck is supple. Pupils reactive. Nostrils clear. Oral cavity is moist. Ears reveal no drainage. Neck reveals no JVD, carotid bruits, or thyromegaly. CHEST EXAMINATION: Trachea is central. Symmetrical expansion. Lung zavala clear to auscultation and percussion. CARDIAC: Normal S1, S2 with no gallops. No murmurs ABDOMEN: Soft. Mild right-sided abdominal tenderness. Bowel sounds normal. No organomegaly. No abdominal bruits. Extremities: reveal no edema. No clubbing or cyanosis Neurologically awake, alert, oriented x3 with well-coordinated movements. No focal deficits noted Skin: No rash or skin lesions. Psychiatric: Coperative. Nonsuicidal Musculoskeletal: No joint swelling or deformity. Normal range of motion. - Labs CBC & Chem 7: 02/17/19 13:13 02/17/19 13:13 Assessment and Plan Assessment: Right lower quadrant and right flank pain. Colitis versus gastritis versus functional bowel disorder.. Workup is negative so far. History of ulcerative colitis with colonoscopy in 2013. Currently not on any medications. On follow with GI at [facility] History of renal stones ADD/ADHD Nicotine addiction Marijuana use DVT prophylaxis Plan: Patient will be continued on IV hydration and pain management. Currently on Dilaudid IV. Status post EGD. Continue with Bentyl when necessary. Gen. surgery and GI is following.. Urinalysis is negative for infection. Smoking cessation and marijuana use has been counseled extensively. Symptomatic management for nausea. Further recommendations based on the clinical course. Time with Patient: Greater than 30
[2019-02-21] MEDS: HYDROmorphone 1 MG/ML 1 ML SYRINGE IVP PRN ×4 (04:49→23:47)
[2019-02-21] MEDS: PANTOPRAZOLE 40 MG/10 ML VIAL IV SCH (08:11)
[2019-02-21] MEDS: HEPARIN SODIUM,PORCINE 5,000 UNIT/ML 1 ML VIAL SQ SCH ×3 (08:13→21:41)
[2019-02-21 09:27] LABS: Basophils # (A) 0.1 k/uL (0-0.2); Basophils % (A) 1 %; Eosinophils # (A) 0.2 k/uL (0-0.7); Eosinophils % (A) 3 %; HCT 43.7 % (39.0-53.0); HGB 14.9 gm/dL (13.0-17.5); Lymphocytes # (A) 2.2 k/uL (1.0-4.8); Lymphocytes % (A) 31 %; MCH 30.9 pg (25.0-35.0); MCHC 34.1 g/dL (31.0-37.0); MCV 90.7 fL (80.0-100.0); Mean Platelet Volume 7.2; Monocytes # (A) 0.5 k/uL (0-1.0); Monocytes % (A) 7 %; Neutrophils % (A) 56 %; Platelet Count 264 k/uL (150-450); RBC 4.82 m/uL (4.30-5.90); RDW 12.9 % (11.5-15.5); WBC 7.1 k/uL (3.8-10.6)
[2019-02-21 09:46] LABS: ALT 27 U/L (21-72); AST 18 U/L (17-59); Albumin 4.1 g/dL (3.5-5.0); Alkaline Phosphatase 67 U/L (38-126); Anion Gap 9 mmol/L; Blood Urea Nitrogen 10 mg/dL (9-20); Calcium 9.5 mg/dL (8.4-10.2); Carbon Dioxide 31 mmol/L (22-30); Chloride 102 mmol/L (98-107); Glucose 72 mg/dL (74-99); Potassium 4.4 mmol/L (3.5-5.1); Sodium 142 mmol/L (137-145); Total Bilirubin 0.4 mg/dL (0.2-1.3)
[2019-02-21] MEDS: ONDANSETRON 4 MG/2 ML VIAL IVP PRN (10:49)
[2019-02-21] MEDS ORDERED: ceFAZolin IN SWFI 2 GM/20 ML SYRINGE IVP ONE (13:00)
[2019-02-21] MEDS: SODIUM CHLORIDE 0.9% 1,000 ML IV SCH ×2 (14:53→22:21)
[2019-02-21] MEDS ORDERED: LACTATED RINGERS 1,000 ML IV ONE ×3 (18:12→21:06)
--- NOTE | 2019-02-21 19:09 | P.PN ---
Subjective Progress Note Date: 02/21/19 Principal diagnosis: Abdominal pain Patient seen lying in bed with family bedside, reporting that he still having some abdominal pain. Overall improved. Scheduled for surgery today. Objective - Vital Signs Vital signs: Vital Signs Temp 98.2 F 02/21/19 15:00 Pulse 49 L 02/21/19 18:05 Resp 16 02/21/19 18:05 BP 111/52 02/21/19 18:05 Pulse Ox 97 02/21/19 18:05 Intake & Output 02/21/19 02/21/19 02/22/19 06:59 18:59 06:59 Intake Total 240 Balance 240 Intake: Oral 240 Other: Voiding Method Toilet Toilet # Voids 1 1 - Exam On physical examination, patient appears comfortable in no apparent distress. HEAD: Normocephalic, atraumatic. EYES: No scleral icterus. No conjunctival injection. MOUTH: No lesions, tongue midline. NECK: Trachea midline, no gross abnormalities. CHEST: Clear to auscultation with no wheezing or rhonchi appreciated. HEART: Regular rate and rhythm. ABDOMEN: Soft, obese. Bowel sounds are positive. No organomegaly. No guarding or rigidity. EXTREMITIES: No pedal edema. SKIN: No rashes, no jaundice. NEUROLOGIC: Alert and oriented x3. No focal deficits. - Labs CBC & Chem 7: 02/21/19 08:48 02/21/19 08:48 Labs: Abnormal Lab Results - Last 24 Hours (Table) 02/21/19 Range/Units 08:48 Carbon Dioxide 31 H (22-30) mmol/L Glucose 72 L (74-99) mg/dL Assessment and Plan (1) Abdominal pain Narrative/Plan: Patient presenting with right-sided abdominal pain which appears to be chronic in nature. No pathology noted on computed tomography scan, ultrasound or HIDA. EGD performed in significant for hiatal hernia and mild to moderate gastritis. Some symptom improvement on Bentyl and Protonix therapy, however right upper quadrant abdominal pain has persisted. Current Visit: Yes Status: Acute Code(s): R10.9 - UNSPECIFIED ABDOMINAL PAIN SNOMED Code(s): 91711992 (2) Ulcerative colitis Narrative/Plan: Questionable history of ulcerative colitis diagnosed in 2013. Patient doesn't know the extent of his ulcerative colitis and denies ever requiring steroid therapy for maintenance medications for treatment of his ulcerative colitis. Current Visit: Yes Status: Acute Code(s): K51.90 - ULCERATIVE COLITIS, UNSPE CIFIED, WITHOUT COMPLICATIONS SNOMED Code(s): 94300311 Plan: Supportive care Okay for diet Nothing by mouth after midnight Continue Protonix therapy Continue Bentyl as needed for abdominal pain She was scheduled for cholecystectomy this afternoon Thank you for allowing us to participate in the care of this patient, gastroenterology service will stand by, please call us back with any questions or concerns
[2019-02-21] MEDS ORDERED: ROCURONIUM BROMIDE 10 MG/ML 10 ML VIAL IV ONE (20:09)
[2019-02-21] MEDS ORDERED: PROPOFOL 10 MG/ML 20 ML VIAL IV ONE (20:09)
[2019-02-21] MEDS ORDERED: NEOSTIGMINE 1 MG/ML 10 ML VIAL ONE (20:09)
[2019-02-21] MEDS ORDERED: MIDAZOLAM 2 MG/2 ML VIAL ONE (20:09)
[2019-02-21] MEDS ORDERED: SUCCINYLCHOLINE CHLORIDE 100 MG/5 ML SYR IV ONE (20:09)
[2019-02-21] MEDS ORDERED: fentaNYL (PF) 50 MCG/ML 2 ML AMP ONE (20:09)
[2019-02-21] MEDS ORDERED: GLYCOPYRROLATE 0.2 MG/ML 2 ML VIAL ONE (20:09)
[2019-02-21] MEDS ORDERED: KETOROLAC 30 MG/ML 1 ML VIAL ONE (20:09)
[2019-02-21] MEDS ORDERED: LIDOCAINE 1% INJ 10MG/ML (20 ML MDV) ONE (20:09)
[2019-02-21] MEDS ORDERED: BUPIVACAIN-EPI 0.5%-1:200,000 30 ML VIAL SQ ONE (20:31)
[2019-02-21] MEDS ORDERED: NALOXONE 0.4 MG/ML 1 ML VIAL IV PRN (21:08)
[2019-02-21] MEDS ORDERED: ACETAMINOPHEN TAB 325 MG TAB PO PRN (21:08)
--- NOTE | 2019-02-21 21:08 | P.OP ---
Date of Procedure: 02/21/19 Description of Procedure: SURGEON: VÍCTOR LAKE MD PREOPERATIVE DIAGNOSES: 1. Right upper quadrant abdominal pain 2. Chronic cholecystitis 3. Ulcerative colitis 4. ADD/ADHD 5. Tobacco use disorder 6. Family history of gallbladder disorder POSTOPERATIVE DIAGNOSES: 1. Right upper quadrant abdominal pain 2. Chronic cholecystitis 3. Ulcerative colitis 4. ADD/ADHD 5. Tobacco use disorder 6. Family history of gallbladder disorder OPERATION: Robotic-assisted da Carri Xi laparoscopic cholecystectomy, multiport with FIREFLY ESTIMATED BLOOD LOSS: 5 mL. SPECIMENS REMOVED: Gallbladder. COMPLICATIONS: None. OPERATIVE FINDINGS: 1. Chronic cholecystitis INDICATIONS: The patient is a 23-year-old male who presents with cholelcystitis. Surgical intervention with a laparoscopic cholecystectomy was described at length including injury to the biliary tree, bleeding, infection, need for further surgery. Informed consent was obtained. Robotic assisted laparoscopic approach was described. Benefits and risks of the procedure including but not limited to bleeding, infection, injury to the biliary tree was described. Informed consent was obtained. DESCRIPTION OF PROCEDURE: Patient was brought to the operating room, placed in supine position. After general induction, the abdomen had been prepped and draped in standard sterile fashion. The robotic da Carri XI system was primed. After a timeout protocol was performed, the patient had been prepped and draped in standard sterile fashion. The patient was injected with indocyanine green. A 5 mm 0 degrees laparoscopic trocar entry was performed along the left upper quadrant. The abdomen insufflated to 15 mmHg pressure which was tolerated well. Diagnostic laparoscopy demonstrated no injury to bowel viscera or mesentery. The liver surface was unremarkable. Next, two 8 mm robotic ports were placed alfred ng the right upper abdomen. The camera 8-mm port was maintained along the epigastrium. Another 8 mm port was placed along the left upper abdominal wall after exchanging the 5 mm port. Please note that the ports were placed at least 10 to 15 cm away from the target anatomy of the gallbladder. The robot was docked along the left lateral abdomen. The patient was repositioned in reverse Trendelenburg position. Using a grasper for arm 3, a grasper for arm 4, including hook cautery for arm 1, the robotic system was docked and primed as described. Instruments were interchanged by the automobile mechanic assistant including hook cautery, Bovie cautery and clip appliers. I had sat at the console. The gallbladder fundus was retracted over the dome of the liver. Initial attention was brought to the infundibulum which was gently retracted in the inferior lateral approach. Using a grasper, the cystic duct including the cystic artery was carefully skeletonized. FIREFLY was used to identify the cystic artery and cystic structures. Large PLASTIC clips were used throughout the entire case. Using a clip credit card interviewer 2 clips were placed proximally, and 1 clip was placed distally along the cystic duct and then cauterized with the cautery. Again care was taken to avoid any injury to the biliary tree as the common bile duct was clearly visualized during this portion of dissection. Next, the cystic artery was similarly clipped and cauterized. Electro-Bovie cautery was used to remove the gallbladder from the hepatic fossa. Hemostasis was checked and found to be adequate. The robot was undocked. I re-scrubbed into the case. Using a 10 mm Endo Catch bag via the left upper quadrant incision, the specimen was removed from the abdominal cavity. All pneumoperitoneum instruments were evacuated from the abdominal cavity. The incisions were reapproximated using 4-0 Monocryl in an interrupted subcuticular fashion. Fascial defects were less than 8 mm in size. Please note along the trocar sites, local anesthetic was placed as a field block prior to insertion of all instruments. Liquid glue was applied to the skin. At the end of the procedure needle, sponge, and instrument count had been verified correct by the customer data technician. The patient was transferred to postanesthesia care unit in stable condition. Intraoperative films were shared with the patient's family who were very pleased with the level of care. Console time: 8 minutes
[2019-02-21] MEDS: HYDROmorphone 1 MG/ML 1 ML SYRINGE IVP ONE ×2 (21:31→21:41)
[2019-02-21] MEDS: KETOROLAC 30 MG/ML 1 ML VIAL IVP SCH (22:22)
[2019-02-22] MEDS: HEPARIN SODIUM,PORCINE 5,000 UNIT/ML 1 ML VIAL SQ SCH ×2 (00:21→07:26)
[2019-02-22 00:27] VITALS: RESP 17; TEMP 97.9
[2019-02-22] MEDS: KETOROLAC 30 MG/ML 1 ML VIAL IVP SCH ×2 (02:52→09:23)
[2019-02-22] MEDS: HYDROmorphone 1 MG/ML 1 ML SYRINGE IVP PRN ×2 (04:08→07:21)
[2019-02-22] MEDS: SODIUM CHLORIDE 0.9% 1,000 ML IV SCH (05:16)
[2019-02-22 07:43] VITALS: BP 106/57; PULSE 58
[2019-02-22] MEDS ORDERED: HYDROcodone/APAP 5-325MG 1 EACH TAB PO PRN (09:12)
[2019-02-22] MEDS: PANTOPRAZOLE 40 MG/10 ML VIAL IV SCH (09:24)
--- NOTE | 2019-02-22 11:32 | P.PN ---
Subjective Progress Note Date: 02/22/19 CHIEF COMPLAINT: Abdominal pain HISTORY OF PRESENT ILLNESS: Patient is s/p laparoscopic cholecystectomy. Patient states the pain he was having on his right abdominal quadrant has resolved. He does complain of pain at the surgical sites. Patient ate oatmeal this morning. Denies nausea or vomiting. Patient was receiving IV dilaudid overnight. He received Toradol and [place] this morning. PHYSICAL EXAM: VITAL SIGNS: Reviewed. GENERAL: Well-developed in no acute distress. HEENT: No sclera icterus. Extraocular movements grossly intact. Moist buccal mucosa. Head is atraumatic, normocephalic. ABDOMEN: Soft. Nondistended. Positive bowel sounds. Surgical incision sites clean dry and intact. NEUROLOGIC: Alert and oriented. Cranial nerves II through XII grossly intact. ASSESSMENT: 1. Right upper and lower quadrant abdominal pain 2. Fatty food intolerance 3. History of inflammatory bowel disease 4. Abnormal ultrasound of gallbladder 5. Chronic cholecystitis PLAN: Discussed with patient about trying to reduce IV narcotic usage to ensure pain is tolerable with oral medications in anticipation for discharge home today. Patient received Toradol and [place] about 40 minutes prior to my evaluation. At the time of my exam, patient reported his pain was tolerable. Shortly after patient demanding IV dilaudid. Nursing attempted to talk with patient about recent administration of [place] and Toradol and attempts to control pain without IV narcotics as he wants to go home today. Patient became very agitated with sera sing and is demanding to be discharged immediately. Patient may be discharged from a surgical standpoint. Follow up in 1 week. Nurse practitioner note has been reviewed by physician. Signing provider agrees with the documented findings, assessment, and plan of care. Objective - Vital Signs Vital signs: Vital Signs Temp 97.9 F 02/22/19 07:10 Pulse 58 L 02/22/19 07:10 Resp 17 02/22/19 09:34 BP 106/57 02/22/19 07:10 Pulse Ox 98 02/22/19 07:10 Intake & Output 02/21/19 02/22/19 02/22/19 18:59 06:59 18:59 Intake Total 240 1600 360 Output Total 255 Balance 240 1345 360 Intake: IV 1600 Intake, IV Titration 360 Amount Sodium Chloride 0.9% 1, 360 000 ml @ 120 mls/hr IV . Q8H20M [facility] Rx#:[id number] Oral 240 Output: Urine 250 Estimated Blood Loss 5 Other: Voiding Method Toilet Toilet Urinal # Voids 1 1 - Labs CBC & Chem 7: 02/21/19 08:48 02/21/19 08:48 Assessment and Plan (1) Abdominal pain Status: Acute Code(s): R10.9 - UNSPECIFIED ABDOMINAL PAIN SNOMED Code(s): 48559579 (2) Gallbladder disorder Status: Acute Code(s): K82.9 - DISEASE OF GALLBLADDER, UNSPECIFIED SNOMED Code(s): 01275902 (3) Right lower quadrant pain Status: Acute Code(s): R10.31 - RIGHT LOWER QUADRANT PAIN SNOMED Code(s): 996362056 (4) Right upper quadrant abdominal pain Status: Acute Code(s): R10.11 - RIGHT UPPER QUADRANT PAIN SNOMED Code(s): 840550068 (5) Tobacco use disorder, continuous Status: Acute Code(s): F17.209 - NICOTINE DEPENDENCE, UNSP, W UNSP NICOTINE- INDUCED DISORDERS SNOMED Code(s): 410640502 (6) Ulcerative colitis Status: Acute Code(s): K51.90 - ULCERATIVE COLITIS, UNSPECIFIED, WITHOUT COMPLICATIONS SNOMED Code(s): 78285298
== END 2019-02-22 11:20 | disposition home or self-care (01) | DRG 419 ==
LOC: EC 12:08 → 1SOBS 16:05 → OBSVTOIN 02-19 08:50 → 4SSUR 02-21 21:08
PROVIDERS: ADMIT Internal Medicine; ATTEND Internal Medicine
PROC: 0DB68ZX Excision of Stomach, Via Natural or Artificial Opening Endoscopic, Diagnostic (ICD-10-PCS; 2019-02-19)
PROC: 0DB98ZX Excision of Duodenum, Via Natural or Artificial Opening Endoscopic, Diagnostic (ICD-10-PCS; 2019-02-19)
PROC: 8E0W3CZ Robotic Assisted Procedure of Trunk Region, Percutaneous Approach (ICD-10-PCS; 2019-02-21)
PROC: 0FT44ZZ Resection of Gallbladder, Percutaneous Endoscopic Approach (ICD-10-PCS; principal; 2019-02-21 09:55)
DX: K81.1 Chronic cholecystitis (principal); K29.70 Gastritis, unspecified, without bleeding; K44.9 Diaphragmatic hernia without obstruction or gangrene; R13.10 Dysphagia, unspecified; F90.9 Attention-deficit hyperactivity disorder, unspecified type; F17.200 Nicotine dependence, unspecified, uncomplicated; Z71.6 Tobacco abuse counseling; Z87.442 Personal history of urinary calculi; Z79.899 Other long term (current) drug therapy
CPT/HCPCS: 36415; 43239; 74018; 74176; 76705; 78227; 80053; 81003; 82150; 83690; 85025; 85610; 85652; 85730; 86140; 88304; 88305; 96361; 96372; 96374; 96375; 99285

== ENCOUNTER 2019-03-03 19:04 | Emergency (ER) | payer BC ==
[2019-03-03 19:14] VITALS: TEMP 98.6
[2019-03-03] MEDS ORDERED: MORPHINE SULFATE 4 MG/ML SYRINGE IV STA (19:37)
[2019-03-03] MEDS ORDERED: SODIUM CHLORIDE 0.9% 1,000 ML IV STA (19:37)
--- NOTE | 2019-03-03 19:40 | ED ---
General Adult HPI - General Chief complaint: Abdominal Pain Stated complaint: left flank pain Time Seen by Provider: 03/03/19 19:16 Source: patient, RN notes reviewed, old records reviewed Mode of arrival: ambulatory Limitations: no limitations - History of Present Illness Initial comments: 23-year-old male patient with past medical history of ulcerative colitis, status post cholecystectomy 2 weeks ago presents to ED with approximately 6 hours of left flank pain. Patient reports that this a waxing and waning pain which leaves him resting and pain. Patient states he believes he has kidney stones. Patient reportedly had renal calculi previously identified on an ultrasound. She denies any abdominal pain. Patient denies any nausea vomiting or diarrhea. Patient denies any chest pain difficulty breathing. Patient denies any other complaints. Systemic: Pt denies fatigue, myalgia, fever/chills, rash. Pt denies weakness, night sweats, weight loss. Neuro: Pt denies headache, visual disturbances, syncope or pre-syncope. HEENT: Pt denies ocular discharge or irritation, otalgia, rhinorrhea, pharyngitis or notable lymphadenopathy. Cardiopulmonary: Pt denies chest pain, SOB, heart palpitations, dyspnea on exertion. Abdominal/GI: Pt denies abdominal pain, n/v/d. : Pt denies dysuria, burning w/ urination, frequency/urgency. Denies new onset urinary or bowel incontinence. MSK: Pt denies myalgia, loss of strength or function in extremities. Neuro: Pt denies new onset weakness, paresthesias. - Related Data Home Medications Medication Instructions Recorded Confirmed Acetaminophen [Tylenol] 1,000 mg PO Q6H 02/17/19 02/17/19 Previous Rx's Medication Instructions Recorded Dicyclomine [Bentyl] 20 mg PO QID PRN #30 tab 02/20/19 HYDROcodone/APAP 5-325MG [[place] 1 tab PO Q6HR PRN 3 Days #12 tab 02/20/19 5-325] Pantoprazole Sodium [Protonix] 40 mg PO AC-BRKFST #30 tablet. 02/20/19 Tamsulosin [Flomax] 0.4 mg PO DAILY #5 cap 03/03/19 Allergies Allergy/AdvReac Type Severity Reaction Status Date / Time No Known Allergies Allergy Verified 03/03/19 19:13 Review of Systems ROS Statement: Those systems with pertinent positive or pertinent negative responses have been documented in the HPI. ROS Other: All systems not noted in ROS Statement are negative. Past Medical History Additional Past Medical History / Comment(s): Ulcerative Colitis (2014) dx with colonoscopy. kidney stones History of Any Multi-Drug Resistant Organisms: None Reported Past Surgical History: Cholecystectomy Additional Past Surgical History / Comment(s): Colonoscopy x2, endoscopy Past Psychological History: ADD/ADHD Smoking Status: Current some day smoker Past Alcohol Use History: None Reported, Occasional Past Drug Use History: Marijuana - Past Family History Father Additional Family Medical History / Comment(s): Diverticulitis. General Exam - General Exam Comments Initial Comments: Constitutional: NAD, AOX3, Pt has pleasant affect. HEENT: NC/AT, trachea midline, neck supple, no lymphadenopathy. Posterior phary nx non erythematous, without exudates. External ears appear normal, without discharge. Mucous membranes moist. Eyes PERRLA, EOM intact. There is no scleral icterus. No pallor noted. Cardiopulmonary: RRR, no murmurs, rubs or gallops, no JVD noted. Lungs CTAB in anterior and posterior zavala. No peripheral edema. Abdominal exam: Abdomen soft and non-distended. Abdomen non-tender to palpation in all 4 quadrants. Bowel sounds active in LLQ. No hepatosplenomegaly. No ecchymosis. no CVA tenderness. No guarding, no rigidity, no rebound tenderness. Neuro: CN II-XII grossly intact. No nuchal rigidity. MSK: No posterior calf tenderness bilaterally, homans sign negative bilaterally. Posterior tibialis and radial pulse +2 bilaterally. Sensation intact in upper and lower extremities. Full active ROM in upper and lower extremities, 5/5 stregnth. Limitations: no limitations Course Vital Signs 03/03/19 19:13 Temperature 98.6 F Pulse Rate 90 Respiratory 18 Rate Blood Pressure 126/77 O2 Sat by Pulse 97 Oximetry Medical Decision Making - Medical Decision Making 23-year-old male patient with past medical history of ulcerative colitis, status post cholecystectomy 2 weeks ago presents to ED with approximately 6 hours of left flank pain. Patient reports that this a waxing and waning pain which leaves him resting and pain. Patient states he believes he has kidney stones. Patient reportedly had renal calculi previously identified on an ultrasound. S he denies any abdominal pain. Patient denies any nausea vomiting or diarrhea. Patient denies any chest pain difficulty breathing. Patient denies any other complaints. Pt VSS, afebrile. Physical exam displayed: Abdomen soft and non- distended. Abdomen non-tender to palpation in all 4 quadrants. Bowel sounds active in LLQ. No hepatosplenomegaly. No ecchymosis. no CVA tenderness. No guarding, no rigidity, no rebound tenderness. Laboratory investigations revealed non-impressive CBC, CMP, UA. Renal ultrasound and KUB did not display acute process. Patient improved with analgesic. Patient's symptoms are suspicious of possible renal colic. Shared decision making. Patient does not wish to have additional radiation burden of CT, patient will be treated symptomatically for renal colic. Patient will follow-up with general surgeon who performed cholecystectomy tomorrow. Patient will return to ER if conditions worsen anyway. Case discussed with Dr. Armenta. - Lab Data Result diagrams: 03/03/19 19:43 03/03/19 19:43 Lab Results 03/03/19 03/03/19 03/03/19 Range/Units 19:43 19:43 19:43 WBC 10.6 (3.8-10.6) k/uL RBC 4.87 (4.30-5.90) m/uL Hgb 15.1 (13.0-17.5) gm/dL Hct 43.9 (39.0-53.0) % MCV 90.1 (80.0-100.0) fL MCH 31.0 (25.0-35.0) pg MCHC 34.4 (31.0-37.0) g/dL RDW 12.6 (11.5-15.5) % Plt Count 279 (150-450) k/uL Neutrophils % 62 % Lymphocytes % 25 % Monocytes % 6 % Eosinophils % 6 % Basophils % 0 % Neutrophils # 6.6 (1.3-7.7) k/uL Lymphocytes # 2.6 (1.0-4.8) k/uL Monocytes # 0.6 (0-1.0) k/uL Eosinophils # 0.6 (0-0.7) k/uL Basophils # 0.0 (0-0.2) k/uL Sodium 140 (137-145) mmol/L Potassium 4.6 (3.5-5.1) mmol/L Chloride 104 (98-107) mmol/L Carbon Dioxide 28 (22-30) mmol/L Anion Gap 8 mmol/L BUN 8 L (9-20) mg/dL Creatinine 0.85 (0.66-1.25) mg/dL Est GFR (CKD-EPI)AfAm >90 (>60 ml/min/1.73 sqM) Est GFR (CKD-EPI)NonAf >90 (>60 ml/min/1.73 sqM) Glucose 80 (74-99) mg/dL Calcium 10.0 (8.4-10.2) mg/dL Total Bilirubin 0.8 (0.2-1.3) mg/dL AST 26 (17-59) U/L ALT 33 (21-72) U/L Alkaline Phosphatase 66 (38-126) U/L Total Protein 7.9 (6.3-8.2) g/dL Albumin 4.7 (3.5-5.0) g/dL Urine Color Yellow Urine Appearance Clear (Clear) Urine pH 6.5 (5.0-8.0) Ur Specific [place] 1.024 (1.001-1.035) Urine Protein Trace H (Negative) Urine Glucose (UA) Negative (Negative) Urine Ketones Negative (Negative) Urine Blood Negative (Negative) Urine Nitrite Negative (Negative) Urine Bilirubin Negative (Negative) Urine Urobilinogen <2.0 (<2.0) mg/dL Ur Leukocyte Esterase Negative (Negative) Disposition Clinical Impression: Flank pain Disposition: HOME SELF-CARE Condition: Stable Instructions (If sedation given, give patient instructions): Flank Pain (ED) Additional Instructions: Patient to adhere to previously discussed treatment plan and will take medication(s) as directed. Patient to follow up with PCP in 1-2 days. Patient to return to ED if symptoms do not improve. Please take medications as prescribed. Please follow-up with general surgeon tomorrow. Please return to ER if condition worsens in anyway. Prescriptions: Tamsulosin [Flomax] 0.4 mg PO DAILY #5 cap Is patient prescribed a controlled substance at d/c from ED?: No Referrals: Parker Hurt MD [Primary Care Provider] - 1-2 days Elvira Taylor MD [STAFF PHYSICIAN] - 1-2 days
[2019-03-03 19:52] LABS: Basophils % (A) 0 %; Eosinophils # (A) 0.6 k/uL (0-0.7); Eosinophils % (A) 6 %; HCT 43.9 % (39.0-53.0); HGB 15.1 gm/dL (13.0-17.5); Lymphocytes # (A) 2.6 k/uL (1.0-4.8); Lymphocytes % (A) 25 %; MCHC 34.4 g/dL (31.0-37.0); MCV 90.1 fL (80.0-100.0); Mean Platelet Volume 6.5; Monocytes # (A) 0.6 k/uL (0-1.0); Monocytes % (A) 6 %; Neutrophils # (A) 6.6 k/uL (1.3-7.7); Neutrophils % (A) 62 %; Platelet Count 279 k/uL (150-450); RBC 4.87 m/uL (4.30-5.90); RDW 12.6 % (11.5-15.5); WBC 10.6 k/uL (3.8-10.6)
[2019-03-03 19:56] LABS: Appearance,Urine Clear (Clear); Bilirubin,Urine Negative (Negative); Blood,Urine Negative (Negative); Color,Urine Yellow; Glucose,Urine (UA) Negative (Negative); Ketones,Urine Negative (Negative); Leukocyte Esterase,Urine Negative (Negative); Nitrite,Urine Negative (Negative); PH, Urine 6.5 (5.0-8.0); Protein,Urine Trace (Negative); Specific Gravity,Urine 1.024 (1.001-1.035); Urobilinogen,Urine <2.0 mg/dL (<2.0)
[2019-03-03 20:05] LABS: ALT 33 U/L (21-72); AST 26 U/L (17-59); Albumin 4.7 g/dL (3.5-5.0); Alkaline Phosphatase 66 U/L (38-126); Anion Gap 8 mmol/L; Blood Urea Nitrogen 8 mg/dL (9-20); Carbon Dioxide 28 mmol/L (22-30); Chloride 104 mmol/L (98-107); Glucose 80 mg/dL (74-99); Potassium 4.6 mmol/L (3.5-5.1); Sodium 140 mmol/L (137-145); Total Bilirubin 0.8 mg/dL (0.2-1.3); Total Protein 7.9 g/dL (6.3-8.2)
--- NOTE | 2019-03-03 20:27 | XR ---
EXAMINATION TYPE: XR KUB DATE OF EXAM: 03/03/2019 COMPARISON: 02/17/2019 HISTORY: Abdominal pain TECHNIQUE: 2 views FINDINGS: Bowel gas pattern is normal. There is no sign of intestinal obstruction or pneumoperitoneum . Fecal pattern is normal. There are no pathologic calcification over the kidneys. IMPRESSION: Nonacute abdomen.
--- NOTE | 2019-03-03 21:08 | US ---
EXAMINATION TYPE: US renals and bladder DATE OF EXAM: 03/03/2019 COMPARISON: CT & US CLINICAL HISTORY: Pain. left flank pain EXAM MEASUREMENTS: Right Kidney: 10.9 x 4.9 x 5.2 cm Left Kidney: 11.9 x 5.7 x 6.5 cm Right Kidney: No hydronephrosis or masses seen Left Kidney: No hydronephrosis or masses seen Bladder: wnl Bilateral Jets seen: no There is no evidence for hydronephrosis at this point in time. No nephrolithiasis is seen. No estrella s are identified. The urinary bladder is anechoic. Bilateral ureteral jets are seen. IMPRESSION: Normal renal sonogram. No renal mass or obstruction.
[2019-03-03 21:42] VITALS: BP 132/74; PULSE 57; RESP 16
[2019-03-03] MEDS ORDERED: ACET/COD 300 MG/30 MG STARTER PACK 6 TAB BTL PO STA (21:45)
== END 2019-03-03 21:55 | disposition home or self-care (01) ==
LOC: EC 19:04
DX: R10.9 Unspecified abdominal pain (principal); F17.200 Nicotine dependence, unspecified, uncomplicated; Z79.899 Other long term (current) drug therapy; Z90.49 Acquired absence of other specified parts of digestive tract
CPT/HCPCS: 36415; 80053; 85025; 81003; 74018; 76770; 99284; 96374; 96361; J2270

== ENCOUNTER 2019-03-11 08:52 | Emergency (ER) | payer BC ==
[2019-03-11 09:33] VITALS: RESP 18
[2019-03-11] MEDS ORDERED: DIPH,PERTUS(ACELL)TETVAC-LF 0.5 ML VIAL IM ONE (09:39)
[2019-03-11] MEDS ORDERED: LIDOCAINE 1% INJ 10MG/ML (20 ML MDV) SQ ONE (09:39)
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
[2019-03-11 10:48] VITALS: BP 141/70; PULSE 67; TEMP 98.2
== END 2019-03-11 10:47 | disposition home or self-care (01) ==
LOC: EC 08:52
DX: S81.011A Laceration without foreign body, right knee, initial encounter (principal); F17.200 Nicotine dependence, unspecified, uncomplicated; Z23 Encounter for immunization; W26.8XXA Contact with other sharp object(s), not elsewhere classified, initial encounter; Y92.009 Unspecified place in unspecified non-institutional (private) residence as the place of occurrence of the external cause
CPT/HCPCS: 90715; 99282; 12002; 90471; J2001

== ENCOUNTER 2019-03-14 14:39 | Emergency (ER) | payer BC ==
[2019-03-14 14:53] VITALS: RESP 18
[2019-03-14] MEDS ORDERED: SODIUM CHLORIDE 0.9% 1,000 ML IV STA (15:08)
[2019-03-14] MEDS ORDERED: HYDROmorphone 1 MG/ML 1 ML SYRINGE IVP STA (15:08)
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
[2019-03-14 15:29] LABS: Basophils % (A) 0 %; Eosinophils # (A) 0.2 k/uL (0-0.7); Eosinophils % (A) 1 %; HGB 15.3 gm/dL (13.0-17.5); Lymphocytes # (A) 1.1 k/uL (1.0-4.8); Lymphocytes % (A) 10 %; MCH 30.5 pg (25.0-35.0); MCV 89.8 fL (80.0-100.0); Mean Platelet Volume 7.1; Monocytes # (A) 0.5 k/uL (0-1.0); Monocytes % (A) 5 %; Neutrophils # (A) 8.8 k/uL (1.3-7.7); Neutrophils % (A) 82 %; Platelet Count 256 k/uL (150-450); RBC 5.01 m/uL (4.30-5.90); RDW 13.1 % (11.5-15.5); WBC 10.8 k/uL (3.8-10.6)
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
[2019-03-14 15:40] LABS: ALT 34 U/L (21-72); AST 31 U/L (17-59); Albumin 4.5 g/dL (3.5-5.0); Alcohol <10 mg/dL; Alkaline Phosphatase 82 U/L (38-126); Amylase 67 U/L (30-110); Anion Gap 8 mmol/L; Blood Urea Nitrogen 8 mg/dL (9-20); Calcium 9.9 mg/dL (8.4-10.2); Carbon Dioxide 27 mmol/L (22-30); Chloride 104 mmol/L (98-107); Creatine Kinase 118 U/L (55-170); Glucose 94 mg/dL (74-99); Lipase 50 U/L (23-300); Potassium 3.9 mmol/L (3.5-5.1); Sodium 139 mmol/L (137-145); Total Bilirubin 0.7 mg/dL (0.2-1.3); Total Protein 7.8 g/dL (6.3-8.2)
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
[2019-03-14 15:45] LABS: INR 0.9 (<1.2); Partial Thromboplastin Time 24.3 sec (22.0-30.0)
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
[2019-03-14 15:52] LABS: Creatine Kinase MB 0.4 ng/mL (0.0-2.4); Troponin I <0.012 ng/mL (0.000-0.034)
[2019-03-14 16:26] LABS: Appearance,Urine Cloudy (Clear); Bilirubin,Urine Negative (Negative); Blood,Urine Moderate (Negative); Calcium Oxalate Crystals,Urine Few /hpf; Color,Urine Yellow; Glucose,Urine (UA) Negative (Negative); Granular Casts,Urine 38 /lpf (0); Hyaline Casts,Urine 31 /lpf (0-2); Ketones,Urine Negative (Negative); Leukocyte Esterase,Urine Trace (Negative); Mucus,Urine Many /hpf; Nitrite,Urine Negative (Negative); Protein,Urine 2+ (Negative); RBC,Urine 70 /hpf (0-5); Specific Gravity,Urine 1.031 (1.001-1.035); WBC,Urine 10 /hpf (0-5)
[2019-03-14 16:30] LABS: Amphetamine Screen,Urine Not Detected (NotDetected); Barbiturate Screen,Urine Not Detected (NotDetected); Benzodiazepines Screen,Urine Not Detected (NotDetected); Cocaine Screen,Urine Detected (NotDetected); Methadone Screen, Urine Not Detected (NotDetected); Opiate Screen,Urine Detected (NotDetected); Oxycodone Screen, Urine Not Detected (NotDetected); Phencyclidine Screen,Urine Not Detected (NotDetected); Tricyclic Antidepressant,Urine Not Detected (NotDetected); Urn Cannabinoid Scrn Detected (NotDetected)
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
[2019-03-14 17:52] VITALS: BP 124/75; PULSE 72; TEMP 97.6
== END 2019-03-14 17:55 | disposition home or self-care (01) ==
LOC: EC 14:39
DX: S70.02XA Contusion of left hip, initial encounter (principal); M50.221 Other cervical disc displacement at C4-C5 level; M43.06 Spondylolysis, lumbar region; R31.9 Hematuria, unspecified; F17.200 Nicotine dependence, unspecified, uncomplicated; Z90.49 Acquired absence of other specified parts of digestive tract; V86.06XA Driver of dirt bike or motor/cross bike injured in traffic accident, initial encounter; Y92.410 Unspecified street and highway as the place of occurrence of the external cause
CPT/HCPCS: 36415; 93005; 86900; 86901; 80053; 82150; 82550; 82553; 83605; 83690; 84484; 85025; 85610; 85730; 86850; 81001; 80306; 80320; 72170; 73502; 71045; 72125; 70450; 74177; 99285; 96374; 96361; J1170; Q9967

== ENCOUNTER 2019-06-26 21:04 | Emergency (ER) | payer BC ==
[2019-06-26 21:12] VITALS: BP 138/77; PULSE 59; RESP 18; TEMP 98.3
[2019-06-26] MEDS ORDERED: SODIUM CHLORIDE 0.9% 1,000 ML IV STA (21:26)
--- NOTE | 2019-06-26 21:28 | ED ---
General Adult HPI - General Chief complaint: Abdominal Pain Stated complaint: right lower abdominal pain Time Seen by Provider: 06/26/19 21:11 Source: patient, RN notes reviewed Mode of arrival: ambulatory Limitations: no limitations - History of Present Illness Initial comments: 24-year-old male With a past medical history of ulcerative colitis, kidney stones, cholecystectomy [address] Taylor presents to the emergency department for chief complaint of lower abdominal pain. Patient states that he is having sharp pain in his abdomen. States that movement seems to make this pain worse including twisting. Denies pain worsening with walking. Denies pain while riding in the car or hitting bumps in the road. Denies fevers or chills. Does admit to nausea denies vomiting. States that he has been constipated for about the last week. States he had a hard stool 3 or 4 days ago. States that today he had a looser stool. Patient has no other complaints at this time including shortness of breath, chest pain, vomiting, headache, or visual changes. - Related Data Home Medications Medication Instructions Recorded Confirmed Ibuprofen [Motrin Ib] 1,200 mg PO ONCE PRN 03/14/19 03/14/19 Previous Rx's Medication Instructions Recorded Acetaminophen-Codeine 300-30mg 1 each PO Q4H PRN #12 tablet 03/14/19 [Tylenol #3] predniSONE 50 mg PO DAILY #5 tablet 06/26/19 Allergies Allergy/AdvReac Type Severity Reaction Status Date / Time No Known Allergies Allergy Verified 06/26/19 21:12 Review of Systems ROS Statement: Those systems with pertinent positive or pertinent negative responses have been documented in the HPI. ROS Other: All systems not noted in ROS Statement are negative. Past Medical History Additional Past Medical History / Comment(s): Ulcerative Colitis (2014) dx with colonoscopy. kidney stones History of Any Multi-Drug Resistant Organisms: None Reported Past Surgical History: Cholecystectomy Additional Past Surgical History / Comment(s): Colonoscopy x2, endoscopy Past Psychological History: ADD/ADHD Smoking Status: Former smoker Past Alcohol Use History: Occasional Past Drug Use History: Marijuana - Past Family History Father Additional Family Medical History / Comment(s): Diverticulitis. General Exam Limitations: no limitations General appearance: alert, in no apparent distress Head exam: Present: atraumatic, normocephalic, normal inspection Eye exam: Present: normal appearance, PERRL, EOMI. Absent: scleral icterus, conjunctival injection, periorbital swelling ENT exam: Present: normal exam, mucous membranes moist Neck exam: Present: normal inspection, full ROM. Absent: tenderness, m eningismus, lymphadenopathy Respiratory exam: Present: normal lung sounds bilaterally. Absent: respiratory distress, wheezes, rales, rhonchi, stridor Cardiovascular Exam: Present: regular rate, normal rhythm, normal heart sounds. Absent: systolic murmur, diastolic murmur, rubs, gallop, clicks GI/Abdominal exam: Present: soft, tenderness (Tenderness noted in the left and right lower quadrants. No upper abdominal tenderness.), normal bowel sounds. Absent: distended, guarding, rebound, rigid Expanded GI/Abdominal exam: Absent: heel tap sign, Chew's sign, Rovsing's sign, tenderness at [place]'s Point Neurological exam: Present: alert, oriented X3 Psychiatric exam: Present: normal affect, normal mood Course Vital Signs 06/26/19 21:10 Temperature 98.3 F Pulse Rate 59 L Respiratory 18 Rate Blood Pressure 138/77 O2 Sat by Pulse 98 Oximetry Medical Decision Making - Medical Decision Making Misael is a 24-year-old male presented for right lower quadrant pain 2 days. Patient states it is worse with movement. States he was constipated for a few days and then had diarrhea today. CBC and CMP is unremarkable. Urine negative. On exam he does have some right lower quadrant tenderness as well as left lower quadrant tenderness. States right lower quadrant is worse. Negative heeltap. CT shows thickening of the rectal wall. Proctitis versus tumor. This is likely secondary to patient's ulcerative colitis. Patient will be given steroids. Recommended following up with his GI specialist in 1-2 days. Recommended returning if he has any worsening symptoms. - Lab Data Result diagrams: 06/26/19 21:37 06/26/19 21:37 Lab Results 06/26/19 06/26/19 06/26/19 Range/Units 21:37 21:37 21:37 WBC 10.4 (3.8-10.6) k/uL RBC 4.69 (4.30-5.90) m/uL Hgb 14.2 (13.0-17.5) gm/dL Hct 42.3 (39.0-53.0) % MCV 90.2 (80.0-100.0) fL MCH 30.4 (25.0-35.0) pg MCHC 33.7 (31.0-37.0) g/dL RDW 12.8 (11.5-15.5) % Plt Count 258 (150-450) k/uL Neutrophils % 62 % Lymphocytes % 30 % Monocytes % 5 % Eosinophils % 1 % Basophils % 0 % Neutrophils # 6.4 (1.3-7.7) k/uL Lymphocytes # 3.1 (1.0-4.8) k/uL Monocytes # 0.5 (0-1.0) k/uL Eosinophils # 0.1 (0-0.7) k/uL Basophils # 0.0 (0-0.2) k/uL Sodium 141 (137-145) mmol/L Potassium 4.2 (3.5-5.1) mmol/L Chloride 106 (98-107) mmol/L Carbon Dioxide 26 (22-30) mmol/L Anion Gap 9 mmol/L BUN 11 (9-20) mg/dL Creatinine 0.89 (0.66-1.25) mg/dL Est GFR (CKD-EPI)AfAm >90 (>60 ml/min/1.73 sqM) Est GFR (CKD-EPI)NonAf >90 (>60 ml/min/1.73 sqM) Glucose 101 H (74-99) mg/dL Calcium 9.5 (8.4-10.2) mg/dL Total Bilirubin 0.4 (0.2-1.3) mg/dL AST 20 (17-59) U/L ALT 18 L (21-72) U/L Alkaline Phosphatase 69 (38-126) U/L Total Protein 7.2 (6.3-8.2) g/dL Albumin 4.2 (3.5-5.0) g/dL Amylase 79 (30-110) U/L Lipase 188 (23-300) U/L Urine Color Yellow Urine Appearance Cloudy (Clear) Urine pH 7.0 (5.0-8.0) Ur Specific [place] 1.017 (1.001-1.035) Urine Protein Negative (Negative) Urine Glucose (UA) Negative (Negative) Urine Ketones Negative (Negative) Urine Blood Negative (Negative) Urine Nitrite Negative (Negative) Urine Bilirubin Negative (Negative) Urine Urobilinogen <2.0 (<2.0) mg/dL Ur Leukocyte Esterase Negative (Negative) Urine WBC 5 (0-5) /hpf Ur Squamous Epith Cells <1 (0-4) /hpf Amorphous Sediment Rare H (None) /hpf Urine Mucus Rare H (None) /hpf Disposition Clinical Impression: Abdominal pain, Ulcerative colitis Disposition: HOME SELF-CARE Condition: Good Instructions (If sedation given, give patient instructions): Abdominal Pain (ED) Additional Instructions: Please take steroids as directed. Please follow-up with primary care as well as GI in 1-2 days. Return to the emergency department if you have any worsening symptoms. Prescriptions: predniSONE 50 mg PO DAILY #5 tablet Is patient prescribed a controlled substance at d/c from ED?: No Referrals: Parker Hurt MD [Primary Care Provider] - 1-2 days Anneliese Gomez MD [STAFF PHYSICIAN] - 1-2 days Time of Disposition: 23:43
[2019-06-26 21:48] LABS: Basophils % (A) 0 %; Eosinophils # (A) 0.1 k/uL (0-0.7); Eosinophils % (A) 1 %; HCT 42.3 % (39.0-53.0); HGB 14.2 gm/dL (13.0-17.5); Lymphocytes # (A) 3.1 k/uL (1.0-4.8); Lymphocytes % (A) 30 %; MCH 30.4 pg (25.0-35.0); MCHC 33.7 g/dL (31.0-37.0); MCV 90.2 fL (80.0-100.0); Mean Platelet Volume 6.7; Monocytes # (A) 0.5 k/uL (0-1.0); Monocytes % (A) 5 %; Neutrophils # (A) 6.4 k/uL (1.3-7.7); Neutrophils % (A) 62 %; Platelet Count 258 k/uL (150-450); RBC 4.69 m/uL (4.30-5.90); RDW 12.8 % (11.5-15.5); WBC 10.4 k/uL (3.8-10.6)
[2019-06-26 22:03] LABS: ALT 18 U/L (21-72); AST 20 U/L (17-59); African American GFR (CKD) >90 (>60 ml/min/1.73 sqM); Albumin 4.2 g/dL (3.5-5.0); Alkaline Phosphatase 69 U/L (38-126); Amylase 79 U/L (30-110); Anion Gap 9 mmol/L; Blood Urea Nitrogen 11 mg/dL (9-20); Calcium 9.5 mg/dL (8.4-10.2); Carbon Dioxide 26 mmol/L (22-30); Chloride 106 mmol/L (98-107); Glucose 101 mg/dL (74-99); Potassium 4.2 mmol/L (3.5-5.1); Sodium 141 mmol/L (137-145); Total Bilirubin 0.4 mg/dL (0.2-1.3); Total Protein 7.2 g/dL (6.3-8.2)
[2019-06-26 22:07] LABS: Amorphous Sediment,Urine Rare /hpf; Appearance,Urine Cloudy (Clear); Bilirubin,Urine Negative (Negative); Blood,Urine Negative (Negative); Color,Urine Yellow; Glucose,Urine (UA) Negative (Negative); Ketones,Urine Negative (Negative); Leukocyte Esterase,Urine Negative (Negative); Mucus,Urine Rare /hpf; Nitrite,Urine Negative (Negative); Protein,Urine Negative (Negative); Specific Gravity,Urine 1.017 (1.001-1.035); Squamous Epithelial Cell,Urine <1 /hpf (0-4); Urobilinogen,Urine <2.0 mg/dL (<2.0); WBC,Urine 5 /hpf (0-5)
--- NOTE | 2019-06-26 22:13 | XR ---
EXAMINATION TYPE: XR KUB, 2 views DATE OF EXAM: 06/26/2019 COMPARISON: 03/03/2019 HISTORY: Pain TECHNIQUE: 2 upright views FINDINGS: The stomach is distended with foodstuff. The bowel gas pattern is otherwise normal. There is no pneumatosis or pneumoperitoneum. No definite acute skeletal or soft tissue findings. Visualized lung bases and pleural spaces are negative. IMPRESSION: Gastric distention, no other findings.
[2019-06-26] MEDS ORDERED: KETOROLAC 30 MG/ML 1 ML VIAL IVP STA (22:41)
--- NOTE | 2019-06-26 23:21 | CT ---
EXAM: CT Abdomen and Pelvis With Intravenous Contrast CLINICAL HISTORY: ITS.REASON CT Reason: Pain TECHNIQUE: Axial computed tomography images of the abdomen and pelvis with intravenous contrast. This CT exam was performed using one or more of the following dose reduction techniques: automated exposure control, adjustment of the mA and/or kV according to patient size, and/or use of iterative reconstruction technique. COMPARISON: CT abdomen pelvis 03/14/19 FINDINGS: Lung bases: Unremarkable. No mass. No consolidation. ABDOMEN: Liver: Unremarkable. No mass. Gallbladder and bile ducts: Unremarkable. No calcified stones. No ductal dilation. Pancreas: Unremarkable. No mass. No ductal dilation. Spleen: Unremarkable. No splenomegaly. Adrenals: Unremarkable. No mass. Kidneys and ureters: Unremarkable. No solid mass. No hydronephrosis. Stomach and bowel: Thickened rectum wall with slight adjacent stranding. Otherwise unremarkable. No obstruction. No other mucosal thickening. PELVIS: Appendix: No findings to suggest acute appendicitis. Bladder: Unremarkable. No mass. Reproductive: Unremarkable as visualized. ABDOMEN and PELVIS: Intraperitoneal space: Unremarkable. No free air. No significant fluid collection. Bones/joints: No acute fracture. No dislocation. 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 Soft tissues: Unremarkable. Vasculature: Unremarkable. No abdominal aortic aneurysm. Lymph nodes: Unremarkable. No enlarged lymph nodes. IMPRESSION: Thickened rectum wall. Consider proctitis versus less likely consideration of tumor. No nearby abscess. <MYCVCSECTION> [employer] 06/26/19 23:27 Verify Receipt Verified receipt with Dr. Springer
[2019-06-26] MEDS ORDERED: methylPREDNISolone SOD SUCCI 125 MG/2 ML VIAL IV STA (23:45)
== END 2019-06-27 00:23 | disposition home or self-care (01) ==
LOC: EC 21:04
DX: K51.90 Ulcerative colitis, unspecified, without complications (principal); Z87.891 Personal history of nicotine dependence; Z90.49 Acquired absence of other specified parts of digestive tract; Z83.79 Family history of other diseases of the digestive system
CPT/HCPCS: 36415; 80053; 82150; 83690; 85025; 81001; 74018; 74177; 99284; 96374; 96375; 96361 ×2; J1885; Q9967

== ENCOUNTER 2019-10-24 17:03 | Emergency (ER) | payer BC ==
[2019-10-24 17:13] VITALS: RESP 18
[2019-10-24] MEDS ORDERED: PANTOPRAZOLE 40 MG/10 ML VIAL IVP STA (17:59)
[2019-10-24] MEDS ORDERED: KETOROLAC 30 MG/ML 1 ML VIAL IVP STA (17:59)
[2019-10-24] MEDS ORDERED: ONDANSETRON 4 MG/2 ML VIAL IVP STA (17:59)
[2019-10-24] MEDS ORDERED: SODIUM CHLORIDE 0.9% 1,000 ML IV STA ×2 (17:59)
[2019-10-24] MEDS ORDERED: DICYCLOMINE 10 MG/ML 2 ML AMP IM STA (18:00)
--- NOTE | 2019-10-24 18:01 | ED ---
Weakness HPI - General Chief complaint: Abdominal Pain Stated complaint: Back and Abd pain Time Seen by Provider: 10/24/19 17:10 Source: patient, RN notes reviewed, old records reviewed Mode of arrival: ambulatory Limitations: no limitations - History of Present Illness Initial comments: This is a 24-year-old male to the ER for evaluation presents today for evaluation weight loss occasional abdominal pain crampy abdominal pain sharp right lower quadrant abdominal pain. Patientis some blood in the urine, denies any fevers disease had the symptoms for quite some time if not years has had colonoscopies his gallbladder removed as well as multiple other evaluations with no significant findings noted. He was given a pulmonary diagnosis of colitis bu t unknown what kind of colitis or specifications A takes no medication. Patient's pain has been going on for quite some time again for years but recently the pain is worse again in the right lower quadrant or right groin area. MD Complaint: generalized weakness (And weight loss) -: year(s) Location: generalized Severity: mild Severity scale (1-10): 3 Quality: aching Consistency: constant Improves with: none Worsens with: none Context: new medication Associated Symptoms: denies other symptoms - Related Data Home Medications Medication Instructions Recorded Confirmed Ibuprofen [Motrin Ib] 1,200 mg PO ONCE PRN 03/14/19 03/14/19 Previous Rx's Medication Instructions Recorded Acetaminophen-Codeine 300-30mg 1 each PO Q4H PRN #12 tablet 03/14/19 [Tylenol #3] predniSONE 50 mg PO DAILY #5 tablet 06/26/19 Allergies Allergy/AdvReac Type Severity Reaction Status Date / Time No Known Allergies Allergy Verified 06/26/19 21:12 Review of Systems ROS Statement: Those systems with pertinent positive or pertinent negative responses have been documented in the HPI. ROS Other: All systems not noted in ROS Statement are negative. Past Medical History Additional Past Medical History / Comment(s): Ulcerative Colitis (2014) dx with colonoscopy. kidney stones History of Any Multi-Drug Resistant Organisms: None Reported Past Surgical History: Cholecystectomy Additional Past Surgical History / Comment(s): Colonoscopy x2, endoscopy Past Psychological History: ADD/ADHD Smoking Status: Former smoker Past Alcohol Use History: Occasional Past Drug Use History: Marijuana - Past Family History Father Additional Family Medical History / Comment(s): Diverticulitis. General Exam Limitations: no limitations General appearance: alert, in no apparent distress Head exam: Present: atraumatic, normocephalic, normal inspection Eye exam: Present: normal appearance, PERRL, EOMI. Absent: scleral icterus, conjunctival injection, periorbital swelling ENT exam: Present: normal exam, mucous membranes moist Neck exam: Present: normal inspection. Absent: tenderness, meningismus, lymphadenopathy Respiratory exam: Present: normal lung sounds bilaterally. Absent: respiratory distress, wheezes, rales, rhonchi, stridor Cardiovascular Exam: Present: regular rate, normal rhythm, normal heart sounds. Absent: systolic murmur, diastolic murmur, rubs, gallop, clicks GI/Abdominal exam: Present: soft, normal bowel sounds. Absent: distended, tenderness, guarding, rebound, rigid Extremities exam: Present: normal inspection, full ROM, normal capillary refill. Absent: tenderness, pedal edema, joint swelling, calf tenderness Back exam: Present: normal inspection Neurological exam: Present: alert, oriented X3, CN II-XII intact Psychiatric exam: Present: normal affect, normal mood Skin exam: Present: warm, dry, intact, normal color. Absent: rash Course Vital Signs 10/24/19 17:09 Temperature 98.0 F Pulse Rate 90 Respiratory 18 Rate Blood Pressure 132/77 O2 Sat by Pulse 98 Oximetry - Reevaluation(s) Reevaluation #1: 10/24/19 18:58 Medical record is reviewed Reevaluation #2: 10/24/19 20:34 Medical record past history is reviewed including prior imaging Reevaluation #3: 10/24/19 20:34 Spoke with patient, informed to follow up with GI as directed Medical Decision Making - Medical Decision Making 24 male to the ER with no history of colitis patient does have colitis versus ulcerative colitis unsure what diagnosis is follow-up with GI. Patient also has polysubstance abuse - Lab Data Result diagrams: 10/24/19 18:00 10/24/19 18:00 Lab Results 10/24/19 10/24/19 10/24/19 Range/Units 18:00 18:00 18:00 WBC 6.0 (3.8-10.6) k/uL RBC 4.86 (4.30-5.90) m/uL Hgb 14.9 (13.0-17.5) gm/dL Hct 44.6 (39.0-53.0) % MCV 91.7 (80.0-100.0) fL MCH 30.6 (25.0-35.0) pg MCHC 33.4 (31.0-37.0) g/dL RDW 12.1 (11.5-15.5) % Plt Count 216 (150-450) k/uL Neutrophils % 41 % Lymphocytes % 47 % Monocytes % 7 % Eosinophils % 2 % Basophils % 1 % Neutrophils # 2.4 (1.3-7.7) k/uL Lymphocytes # 2.8 (1.0-4.8) k/uL Monocytes # 0.4 (0-1.0) k/uL Eosinophils # 0.1 (0-0.7) k/uL Basophils # 0.0 (0-0.2) k/uL Sodium 140 (137-145) mmol/L Potassium 4.2 (3.5-5.1) mmol/L Chloride 101 (98-107) mmol/L Carbon Dioxide 29 (22-30) mmol/L Anion Gap 10 mmol/L BUN 10 (9-20) mg/dL Creatinine 1.03 (0.66-1.25) mg/dL Est GFR (CKD-EPI)AfAm >90 (>60 ml/min/1.73 sqM) Est GFR (CKD-EPI)NonAf >90 (>60 ml/min/1.73 sqM) Glucose 58 L (74-99) mg/dL Calcium 9.6 (8.4-10.2) mg/dL Phosphorus 4.5 (2.5-4.5) mg/dL Magnesium 2.0 (1.6-2.3) mg/dL Total Bilirubin 0.5 (0.2-1.3) mg/dL AST 35 (17-59) U/L ALT 33 (21-72) U/L Alkaline Phosphatase 72 (38-126) U/L Creatine Kinase 184 H (55-170) U/L Total Protein 7.5 (6.3-8.2) g/dL Albumin 4.5 (3.5-5.0) g/dL Amylase 61 (30-110) U/L Lipase 143 (23-300) U/L Urine Color Yellow Urine Appearance Clear (Clear) Urine pH 6.0 (5.0-8.0) Ur Specific [place] 1.022 (1.001-1.035) Urine Protein Trace H (Negative) Urine Glucose (UA) Negative (Negative) Urine Ketones Negative (Negative) Urine Blood Negative (Negative) Urine Nitrite Negative (Negative) Urine Bilirubin Negative (Negative) Urine Urobilinogen <2.0 (<2.0) mg/dL Ur Leukocyte Esterase Small H (Negative) Urine RBC <1 (0-5) /hpf Urine WBC 4 (0-5) /hpf Ur Squamous Epith Cells <1 (0-4) /hpf Urine Bacteria Rare H (None) /hpf Urine Mucus Few H (None) /hpf Urine Opiates Screen (NotDetected) Ur Oxycodone Screen (NotDetected) Urine Methadone Screen (NotDetected) Ur Propoxyphene Screen (NotDetected) Ur Barbiturates Screen (NotDetected) U Tricyclic Antidepress (NotDetected) Ur Phencyclidine Scrn (NotDetected) Ur Amphetamines Screen (NotDetected) U Methamphetamines Scrn (NotDetected) U Benzodiazepines Scrn (NotDetected) Urine Cocaine Screen (NotDetected) U Marijuana (THC) Screen (NotDetected) 10/24/19 Range/Units 18:00 WBC (3.8-10.6) k/uL RBC (4.30-5.90) m/uL Hgb (13.0-17.5) gm/dL Hct (39.0-53.0) % MCV (80.0-100.0) fL MCH (25.0-35.0) pg MCHC (31.0-37.0) g/dL RDW (11.5-15.5) % Plt Count (150-450) k/uL Neutrophils % % Lymphocytes % % Monocytes % % Eosinophils % % Basophils % % Neutrophils # (1.3-7.7) k/uL Lymphocytes # (1.0-4.8) k/uL Monocytes # (0-1.0) k/uL Eosinophils # (0-0.7) k/uL Basophils # (0-0.2) k/uL Sodium (137-145) mmol/L Potassium (3.5-5.1) mmol/L Chloride (98-107) mmol/L Carbon Dioxide (22-30) mmol/L Anion Gap mmol/L BUN (9-20) mg/dL Creatinine (0.66-1.25) mg/dL Est GFR (CKD-EPI)AfAm (>60 ml/min/1.73 sqM) Est GFR (CKD-EPI)NonAf (>60 ml/min/1.73 sqM) Glucose (74-99) mg/dL Calcium (8.4-10.2) mg/dL Phosphorus (2.5-4.5) mg/dL Magnesium (1.6-2.3) mg/dL Total Bilirubin (0.2-1.3) mg/dL AST (17-59) U/L ALT (21-72) U/L Alkaline Phosphatase (38-126) U/L Creatine Kinase (55-170) U/L Total Protein (6.3-8.2) g/dL Albumin (3.5-5.0) g/dL Amylase (30-110) U/L Lipase (23-300) U/L Urine Color Urine Appearance (Clear) Urine pH (5.0-8.0) Ur Specific [place] (1.001-1.035) Urine Protein (Negative) Urine Glucose (UA) (Negative) Urine Ketones (Negative) Urine Blood (Negative) Urine Nitrite (Negative) Urine Bilirubin (Negative) Urine Urobilinogen (<2.0) mg/dL Ur Leukocyte Esterase (Negative) Urine RBC (0-5) /hpf Urine WBC (0-5) /hpf Ur Squamous Epith Cells (0-4) /hpf Urine Bacteria (None) /hpf Urine Mucus (None) /hpf Urine Opiates Screen Not Detected (NotDetected) Ur Oxycodone Screen Not Detected (NotDetected) Urine Methadone Screen Not Detected (NotDetected) Ur Propoxyphene Screen Not Detected (NotDetected) Ur Barbiturates Screen Not Detected (NotDetected) U Tricyclic Antidepress Not Detected (NotDetected) Ur Phencyclidine Scrn Not Detected (NotDetected) Ur Amphetamines Screen Detected H (NotDetected) U Methamphetamines Scrn Detected H (NotDetected) U Benzodiazepines Scrn Detected H (NotDetected) Urine Cocaine Screen Not Detected (NotDetected) U Marijuana (THC) Screen Detected H (NotDetected) - Radiology Data Radiology results: report reviewed (CT chest pelvis significant for colitis), image reviewed Disposition Clinical Impression: Ulcerative colitis, Colitis Disposition: HOME SELF-CARE Condition: Good Instructions (If sedation given, give patient instructions): Ulcerative Colitis (ED), Colitis (ED) Is patient prescribed a controlled substance at d/c from ED?: No Referrals: Parker Hurt MD [Primary Care Provider] - 1-2 days Yomi Gallo MD [STAFF PHYSICIAN] - 1-2 days Elvira Taylor MD [STAFF PHYSICIAN] - 1-2 days
[2019-10-24 18:18] LABS: Basophils % (A) 1 %; Eosinophils # (A) 0.1 k/uL (0-0.7); Eosinophils % (A) 2 %; HCT 44.6 % (39.0-53.0); HGB 14.9 gm/dL (13.0-17.5); Lymphocytes # (A) 2.8 k/uL (1.0-4.8); Lymphocytes % (A) 47 %; MCH 30.6 pg (25.0-35.0); MCHC 33.4 g/dL (31.0-37.0); MCV 91.7 fL (80.0-100.0); Mean Platelet Volume 6.4; Monocytes # (A) 0.4 k/uL (0-1.0); Monocytes % (A) 7 %; Neutrophils # (A) 2.4 k/uL (1.3-7.7); Neutrophils % (A) 41 %; Platelet Count 216 k/uL (150-450); RBC 4.86 m/uL (4.30-5.90); RDW 12.1 % (11.5-15.5)
[2019-10-24 18:35] LABS: ALT 33 U/L (21-72); AST 35 U/L (17-59); African American GFR (CKD) >90 (>60 ml/min/1.73 sqM); Albumin 4.5 g/dL (3.5-5.0); Alkaline Phosphatase 72 U/L (38-126); Amylase 61 U/L (30-110); Anion Gap 10 mmol/L; Appearance,Urine Clear (Clear); Bacteria,Urine Rare /hpf; Bilirubin,Urine Negative (Negative); Blood Urea Nitrogen 10 mg/dL (9-20); Blood,Urine Negative (Negative); Calcium 9.6 mg/dL (8.4-10.2); Carbon Dioxide 29 mmol/L (22-30); Chloride 101 mmol/L (98-107); Color,Urine Yellow; Creatine Kinase 184 U/L (55-170); Glucose 58 mg/dL (74-99); Glucose,Urine (UA) Negative (Negative); Ketones,Urine Negative (Negative); Leukocyte Esterase,Urine Small (Negative); Mucus,Urine Few /hpf; Nitrite,Urine Negative (Negative); Non-African American GFR(CKD) >90 (>60 ml/min/1.73 sqM); Phosphorus 4.5 mg/dL (2.5-4.5); Potassium 4.2 mmol/L (3.5-5.1); Protein,Urine Trace (Negative); RBC,Urine <1 /hpf (0-5); Sodium 140 mmol/L (137-145); Specific Gravity,Urine 1.022 (1.001-1.035); Squamous Epithelial Cell,Urine <1 /hpf (0-4); Total Bilirubin 0.5 mg/dL (0.2-1.3); Total Protein 7.5 g/dL (6.3-8.2); Urobilinogen,Urine <2.0 mg/dL (<2.0)
[2019-10-24 19:27] LABS: Amphetamine Screen,Urine Detected (NotDetected); Barbiturate Screen,Urine Not Detected (NotDetected); Benzodiazepines Screen,Urine Detected (NotDetected); Cocaine Screen,Urine Not Detected (NotDetected); Methadone Screen, Urine Not Detected (NotDetected); Opiate Screen,Urine Not Detected (NotDetected); Oxycodone Screen, Urine Not Detected (NotDetected); Phencyclidine Screen,Urine Not Detected (NotDetected); Tricyclic Antidepressant,Urine Not Detected (NotDetected); Urn Cannabinoid Scrn Detected (NotDetected)
--- NOTE | 2019-10-24 20:07 | XR ---
EXAMINATION TYPE: XR KUB 2 views DATE OF EXAM: 10/24/2019 6:07 PM CLINICAL HISTORY: Right lower flank /abdominal pain TECHNIQUE: 2 upright views COMPARISON: 06/26/2019 FINDINGS: The stomach appears fluid distended to a moderate marked degree. Scattered gas is seen in non-distended small bowel loops. Gas and fecal material is seen in non-diste nded colon. There is no visceromegaly, pneumoperitoneum, or abnormal calcification appreciated. The l sweetie bases are clear and the osseous structures are intact. IMPRESSION: Fluid-distended stomach.
--- NOTE | 2019-10-24 20:23 | CT ---
EXAMINATION TYPE: CT ChestAbdPelvis w con DATE OF EXAM: 10/24/2019 COMPARISON: CT abdomen and pelvis June 26, 2019 HISTORY: Chest abdominal and back pain. Hx tamika CT DLP: 759.3 mGycm. Automated Exposure Control for Dose Reduction was Utilized. CONTRAST: CT scan of the thorax, abdomen and pelvis is performed with IV Contrast, patient injected with 100 mL of Isovue 300. FINDINGS: LUNGS: The lungs are grossly clear, there is no concerning parenchymal mass or nodule identified. T here is no pleural effusion or pneumothorax seen. The tracheobronchial tree is patent. MEDIASTINUM: There are no greater than 1 cm hilar or mediastinal lymph nodes. No cardiomegaly or pe ricardial effusion is seen. LIVER/GB: Gallbladder not visualized consistent with history of cholecystectomy.. PANCREAS: No significant abnormality is seen. SPLEEN: No significant abnormality is seen. ADRENALS: No significant abnormality is seen. KIDNEYS: No significant abnormality is seen. BOWEL: Patient has virtually no intra-abdominal fat making evaluation of bowel suboptimal along with lack of enteric contrast. Debris-filled stomach suggests recent meal ingestion. No suspicious small o r large bowel dilatation. Persistent rectal wall thickening felt present. GENITAL ORGANS: No gross abnormality seen. LYMPH NODES: No greater than 1cm abdominal or pelvic lymph nodes are appreciated. OSSEOUS STRUCTURES: Bilateral pars defect at L5 level with slight spondylolisthesis L5 and S1 redemon strated. OTHER: No significant additional abnormality is seen. IMPRESSION: Possible distal colitis involving rectum redemonstrated. No new findings are seen.
[2019-10-24 21:09] VITALS: BP 123/66; PULSE 55; TEMP 97.3
== END 2019-10-24 21:09 | disposition home or self-care (01) ==
LOC: EC 17:03
DX: K51.90 Ulcerative colitis, unspecified, without complications (principal); F19.10 Other psychoactive substance abuse, uncomplicated; Z90.49 Acquired absence of other specified parts of digestive tract; Z87.891 Personal history of nicotine dependence; Z87.442 Personal history of urinary calculi
CPT/HCPCS: 36415; 80053; 82150; 82550; 83690; 83735; 84100; 85025; 81001; 80306; 74018; 71260; 74177; 99285; 96374; 96375 ×2; 96361; 96372; J0500; J2405; J1885; C9113; Q9967

== ENCOUNTER 2020-01-05 10:51 | Emergency (ER) | payer BC, OTHER ==
[2020-01-05 11:07] VITALS: BP 153/80; PULSE 115; RESP 18; TEMP 97.8
[2020-01-05] MEDS ORDERED: traMADol 50 MG TAB PO STA (11:13)
[2020-01-05] MEDS ORDERED: HYDROcodone/APAP 5-325MG 1 EACH TAB PO STA (11:28)
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
--- NOTE | 2020-01-05 11:45 | XR ---
EXAMINATION TYPE: XR tibia fibula RT , 4 VIEWS DATE OF EXAM ORDERED: 01/05/2020 HISTORY: calf pain after fall. COMPARISON: None. FINDINGS: No fracture, dislocation or other acute osseous lesion is seen. IMPRESSION: NO ACUTE OSSEOUS LESION.
--- NOTE | 2020-01-05 11:46 | XR ---
EXAMINATION TYPE: XR knee complete RT , 3 VIEWS DATE OF EXAM ORDERED: 01/05/2020 HISTORY: fall right knee pain. COMPARISON: None. FINDINGS: The joint spaces are maintained. No fracture, dislocation or knee joint effusion is seen. IMPRESSION: NO ACUTE OSSEOUS LESION.
[2020-01-05] MEDS ORDERED: ACET/COD 300 MG/30 MG STARTER PACK 6 TAB BTL PO STA (11:49)
== END 2020-01-05 12:15 | disposition home or self-care (01) ==
LOC: EC 10:51
DX: M25.561 Pain in right knee (principal); M79.661 Pain in right lower leg; Z87.891 Personal history of nicotine dependence; W00.0XXA Fall on same level due to ice and snow, initial encounter
CPT/HCPCS: 99283

== ENCOUNTER 2020-04-06 18:28 | Emergency (ER) | payer BC, OTHER ==
[2020-04-06 18:44] VITALS: RESP 18; TEMP 99.1
[2020-04-06] MEDS ORDERED: KETOROLAC 30 MG/ML 1 ML VIAL IM STA (19:00)
--- NOTE | 2020-04-06 19:53 | ED ---
Lower Extremity Injury HPI - General Chief Complaint: Extremity Injury, Lower Stated Complaint: ankle & knee pain Time Seen by Provider: 04/06/20 18:45 Source: patient Mode of arrival: wheelchair Limitations: no limitations - History of Present Illness Initial Comments: Patient is a 25-year-old male presenting to the emergency Department with a chief complaint of left leg pain. Patient reports he was walking down stairs when he slipped and tumbled his way down. Patient reports near the end he was able to catch himself with suffered an injury in the left lower extremity. Patient reports the pain begins in the left knee and radiates distally. Does report swelling on the left ankle. Patient denies any numbness or tingling. Denies any ecchymosis in the region aside from the ankle. States she smoked large amounts of marijuana prior to arrival. Reports limited range of motion with plantar and dorsiflexion. - Related Data Home Medications Medication Instructions Recorded Confirmed Ibuprofen [Motrin Ib] 1,200 mg PO ONCE PRN 03/14/19 03/14/19 Previous Rx's Medication Instructions Recorded Acetaminophen-Codeine 300-30mg 1 each PO Q4H PRN #12 tablet 03/14/19 [Tylenol #3] predniSONE 50 mg PO DAILY #5 tablet 06/26/19 Pantoprazole Sodium [Protonix] 20 mg PO DAILY 3 Days #3 tablet. 01/05/20 Allergies Allergy/AdvReac Type Severity Reaction Status Date / Time No Known Allergies Allergy Verified 04/06/20 18:44 Review of Systems ROS Statement: Those systems with pertinent positive or pertinent negative responses have been documented in the HPI. ROS Other: All systems not noted in ROS Statement are negative. Past Medical History Past Medical History: No Reported History Additional Past Medical History / Comment(s): Ulcerative Colitis (2013) dx with colonoscopy. kidney stones History of Any Multi-Drug Resistant Organisms: None Reported Past Surgical History: Cholecystectomy Additional Past Surgical History / Comment(s): Colonoscopy x2, endoscopy Past Psychological History: ADD/ADHD Smoking Status: Former smoker Past Alcohol Use History: Occasional Past Drug Use History: Marijuana - Past Family History Father Additional Family Medical History / Comment(s): Diverticulitis. General Exam Limitations: no limitations General appearance: alert, in no apparent distress Head exam: Present: atraumatic, normocephalic, normal inspection Eye exam: Present: normal appearance, PERRL, EOMI Pupils: Present: normal accommodation ENT exam: Present: normal exam Neck exam: Present: normal inspection, full ROM Respiratory exam: Present: normal lung sounds bilaterally Cardiovascular Exam: Present: regular rate, normal rhythm, normal heart sounds Extremities exam: Present: full ROM (Limited range of motion with). Absent: normal inspection (Swelling of the left ankle. No ecchymosis noted.) Back exam: Present: normal inspection, full ROM Neurological exam: Present: alert, oriented X3 Psychiatric exam: Present: normal affect, normal mood Skin exam: Present: warm, dry, intact, normal color Course Vital Signs 04/06/20 04/06/20 18:40 21:13 Temperature 99.1 F Pulse Rate 97 88 Respiratory 18 18 Rate Blood Pressure 130/78 126/78 O2 Sat by Pulse 98 100 Oximetry Medical Decision Making - Medical Decision Making Patient is 25-year-old male presenting to emergency department with a chief complaint of a fall. Patient fell down the stairs was no head injury but he didn't twist his right ankle. He also complained of some knee pain as well. Exam patient has full range of motion in knee and the tib-fib area. Patient does have swelling and limited range of motion in the ankle. X-rays are negative for acute fracture or dislocations in the knee, tib-fib or the ankle. Soft tissue swelling was noted. Patient is neurovascularly intact. Patient given an ankle stirrup and advised to alternate between Tylenol for pain control. He was advised to apply ice compresses and keep the leg elevated. She was advised to follow-up with laboratory technical specialist. Return parameters thoroughly discussed with patient was understanding and agreeable. Case discussed with physician. Disposition Clinical Impression: Fall, Left ankle injury, Left ankle sprain Disposition: HOME SELF-CARE Condition: Stable Instructions (If sedation given, give patient instructions): Ankle Sprain (ED) Additional Instructions: Alternate between Tylenol and Motrin for pain control. Take prescribed medication as directed. Keep the foot elevated and apply ice commerce to minimize symptoms. Follow-up with laboratory technical specialist. Return to emergency department if his worsen. Is patient prescribed a controlled substance at d/c from ED?: No Referrals: Parker Hurt MD [Primary Care Provider] - 1-2 days Time of Disposition: 20:58
[2020-04-06] MEDS ORDERED: Acetaminophen-Codeine 300-30mg TAB PO STA (20:40)
--- NOTE | 2020-04-06 20:42 | XR ---
EXAMINATION TYPE: XR knee complete LT DATE OF EXAM: 04/06/2020 COMPARISON: None HISTORY: Fall, trauma TECHNIQUE: Three-view left knee FINDINGS: Joint spaces are preserved. No acute displaced fractures are evident. No joint effusion is evident. Soft tissues are normal. Follow-up exam can be performed 7-10 days from acute trauma for continued pain. IMPRESSION: 1. Normal three-view left knee
--- NOTE | 2020-04-06 20:42 | XR ---
EXAMINATION TYPE: XR tibia fibula LT DATE OF EXAM: 04/06/2020 COMPARISON: None HISTORY: Fall downstairs, pain TECHNIQUE: 2 view left tibia and fibula FINDINGS: Joint spaces appear preserved. No acute fracture or dislocation is evident. Soft tissues ar e normal. IMPRESSION: 1. Normal 2 view left tibia and fibula.
--- NOTE | 2020-04-06 20:43 | XR ---
EXAMINATION TYPE: XR ankle complete LT DATE OF EXAM: 04/06/2020 COMPARISON: None HISTORY: Fall downstairs, pain, trauma TECHNIQUE: 3 view left ankle FINDINGS: Ankle mortise is intact. Minimal soft tissue swelling over the lateral malleolus may be pre sent. No acute fractures or dislocations are evident. Follow-up exam can be performed 7-10 days from acute trauma for continued pain. IMPRESSION: 1. Mild soft tissue swelling lateral malleolus. 2. No acute osseous abnormality.
[2020-04-06] MEDS ORDERED: ACET/COD 300 MG/30 MG STARTER PACK 6 TAB BTL PO STA (20:57)
[2020-04-06 21:14] VITALS: BP 126/78; PULSE 88
[2020-04-06] MEDS ORDERED: ACTIVATED CHARCOAL-SORBITOL 50 GM/240 ML BOTTLE PO STA (21:49)
== END 2020-04-06 21:14 | disposition home or self-care (01) ==
LOC: EC 18:28
DX: S93.402A Sprain of unspecified ligament of left ankle, initial encounter (principal); Z87.891 Personal history of nicotine dependence; W10.9XXA Fall (on) (from) unspecified stairs and steps, initial encounter; Y93.01 Activity, walking, marching and hiking
CPT/HCPCS: 99283; 96372; 29515; 73590; 73562; 73610; J1885

== ENCOUNTER → 2020-08-14 | Outpatient (CLI) | payer BC, OTHER ==
--- NOTE | 2020-08-14 22:15 | MR ---
EXAMINATION TYPE: MR cervical spine wo con DATE OF EXAM: 08/14/2020 COMPARISON: None HISTORY: Neck pain, RUE numbness/tingling, right clavicle fracture S/P 30 foot fall. CONTRAST: Performed utilizing 0 mL intravenous Gadavist gadolinium contrast. TECHNIQUE: Multiplanar multiecho imaging on a 3.0 Dina magnet is performed through the cervical spin e. FINDINGS: The craniovertebral junction is normal. C7-T1: No focal disc herniation or significant disc bulge is evident. No spinal canal stenosis or n eural foraminal stenosis is present. C6-7: No focal disc herniation or significant disc bulge is evident. No spinal canal stenosis or gianfranco ral foraminal stenosis is present. C5-6: Very minimal disc bulge may be present. No cord contact is evident. No spinal canal stenosis is present.. C4-5: Mild disc bulge is present with anterior thecal sac compression. No cord contact is evident. No spinal canal stenosis or neural foraminal stenosis is present. C3-4: No focal disc herniation or significant disc bulge is evident. No spinal canal stenosis or gianfranco ral foraminal stenosis is present. C2-3: No focal disc herniation or significant disc bulge is evident. No spinal canal stenosis or gianfranco ral foraminal stenosis is present. Disc desiccation is present C2-3 through C5-6. Disc heights are preserved. Lower disc levels have nor mal hydration. Vertebral body heights are preserved. Alignment is normal. IMPRESSIONS: 1. Minimal disc bulging upper cervical spine
== END | disposition home or self-care (01) ==
LOC: RADMRIMAIN 19:28
PROVIDERS: ATTEND Orthopaedic Surgery Orthopaedic Surgery of the Spine
DX: M50.80 Other cervical disc disorders, unspecified cervical region (principal); Z87.81 Personal history of (healed) traumatic fracture
CPT/HCPCS: 72141

== ENCOUNTER 2020-10-20 20:10 | Emergency (ER) | payer BC, OTHER ==
[2020-10-20 20:16] VITALS: BP 149/80; PULSE 83; RESP 18; TEMP 98
[2020-10-20] MEDS ORDERED: FLUORESCEIN STRIPS 1 MG STRIP RIGHT EYE ONE (20:42)
[2020-10-20] MEDS ORDERED: PROPARACAINE 0.5% OPHTH DROPS 15 ML BTL RIGHT EYE STA (20:43)
--- NOTE | 2020-10-20 21:22 | CT ---
EXAMINATION TYPE: CT abdomen pelvis wo con DATE OF EXAM: 10/20/2020 COMPARISON: 06/26/2019 HISTORY: hematuria. hx of stones, colitis. CT DLP: 464.4 mGycm Automated exposure control for dose reduction was used. Lung bases are clear. There is no pleural effusion. Heart size is normal. There is no pericardial eff usion. Liver spleen stomach pancreas appear normal. Bile ducts are not dilated. Gallbladder is absent. There is no adrenal mass. Kidneys have normal size. There is no hydronephrosis. Ureters are not dilat ed. There is no retroperitoneal adenopathy. Bladder distends smoothly. There is no inguinal hernia. T here is no free fluid in the pelvis. There is L5 spondylolysis with first-degree L5-S1 spondylolisthesis. Bony pelvis is intact. Hip joint s are intact. There is no mesenteric edema. There is no ascites or free air. There is no sign of a bowel obstructio n. Appendix is medial and best seen on the coronal images. Appendix has normal size. IMPRESSION: No significant abnormality of the abdomen pelvis. L5 spondylolysis with first-degree L5-S1 spondylolisthesis. No adverse change compared to old exam. There is clearing of the rectal wall thickening.
[2020-10-20 21:50] LABS: Basophils # (A) 0.1 k/uL (0-0.2); Basophils % (A) 1 %; Eosinophils # (A) 0.1 k/uL (0-0.7); Eosinophils % (A) 1 %; HCT 41.3 % (39.0-53.0); HGB 14.2 gm/dL (13.0-17.5); Lymphocytes # (A) 2.8 k/uL (1.0-4.8); Lymphocytes % (A) 28 %; MCH 31.4 pg (25.0-35.0); MCHC 34.3 g/dL (31.0-37.0); MCV 91.7 fL (80.0-100.0); Mean Platelet Volume 6.9; Monocytes # (A) 0.6 k/uL (0-1.0); Monocytes % (A) 6 %; Neutrophils # (A) 6.4 k/uL (1.3-7.7); Neutrophils % (A) 63 %; Platelet Count 183 k/uL (150-450); RBC 4.51 m/uL (4.30-5.90); RDW 11.8 % (11.5-15.5); WBC 10.1 k/uL (3.8-10.6)
[2020-10-20] MEDS ORDERED: ERYTHROMYCIN 5 MG/GM OPHTH OINT 3.5 GM TUBE RIGHT EYE STA (21:54)
[2020-10-20 21:55] LABS: Appearance,Urine Clear (Clear); Bilirubin,Urine Negative (Negative); Blood,Urine Large (Negative); Color,Urine Yellow; Glucose,Urine (UA) Negative (Negative); Ketones,Urine Negative (Negative); Leukocyte Esterase,Urine Trace (Negative); Mucus,Urine Rare /hpf; Nitrite,Urine Negative (Negative); PH, Urine 6.5 (5.0-8.0); Protein,Urine Trace (Negative); RBC,Urine >182 /hpf (0-5); Specific Gravity,Urine 1.012 (1.001-1.035); Squamous Epithelial Cell,Urine <1 /hpf (0-4); Urobilinogen,Urine <2.0 mg/dL (<2.0); WBC,Urine 9 /hpf (0-5)
[2020-10-20 21:58] LABS: ALT 20 U/L (4-49); AST 34 U/L (17-59); African American GFR (CKD) >90 (>60 ml/min/1.73 sqM); Albumin 3.8 g/dL (3.5-5.0); Alkaline Phosphatase 71 U/L (38-126); Anion Gap 6 mmol/L; Blood Urea Nitrogen 17 mg/dL (9-20); Calcium 9.2 mg/dL (8.4-10.2); Carbon Dioxide 23 mmol/L (22-30); Chloride 108 mmol/L (98-107); Creatine Kinase 322 U/L (55-170); Glucose 102 mg/dL (74-99); Non-African American GFR(CKD) >90 (>60 ml/min/1.73 sqM); Potassium 4.4 mmol/L (3.5-5.1); Sodium 137 mmol/L (137-145); Total Bilirubin 0.5 mg/dL (0.2-1.3); Total Protein 6.5 g/dL (6.3-8.2)
[2020-10-20] MEDS ORDERED: CIPROFLOXACIN 0.3% OPHTH SOLN 5 ML BTL RIGHT EYE STA (22:04)
--- NOTE | 2020-10-20 22:07 | ED ---
Male Urogenital HPI - General Chief complaint: Urogenital Stated complaint: Blood in Urine,Eye problem Source: patient Mode of arrival: ambulatory Limitations: no limitations - History of Present Illness Initial comments: 5-year-old male history of kidney stones presenting for multiple complaints. Patient states that yesterday while working a stick struck him in the eye he states he has had pain and light sensitivity since. Patient states his eyes also been watering. Patient denies loss of vision, denies nausea, vomiting or headaches. Denies severe eye redness. Patient states he also noticed today that there was blood in his urine, he states his lower right abdomen hurt for a few seconds here and there throughout day, he was not sure if he had a kidney stone or not. Pt denies fevers, flank pain or additional complaints. Patient appears nontoxic in no acute distress. - Related Data Home Medications Medication Instructions Recorded Confirmed Baclofen [Lioresal] 10 mg PO TID 10/20/20 10/20/20 HYDROcodone/APAP 5-325MG [Ewing 1 tab PO BID 10/20/20 10/20/20 5-325] Previous Rx's Medication Instructions Recorded Ciprofloxacin Ophth Soln [Ciloxan 1 drops RIGHT EYE Q4HR 5 Days #30 10/20/20 0.3% Ophth Soln] ml Allergies Allergy/AdvReac Type Severity Reaction Status Date / Time No Known Allergies Allergy Verified 10/20/20 20:55 Review of Systems ROS Statement: Those systems with pertinent positive or pertinent negative responses have been documented in the HPI. ROS Other: All systems not noted in ROS Statement are negative. Past Medical History Past Medical History: No Reported History Additional Past Medical History / Comment(s): Ulcerative Colitis (2013) dx with colonoscopy. kidney stones History of Any Multi-Drug Resistant Organisms: None Reported Past Surgical History: Cholecystectomy Additional Past Surgical History / Comment(s): Colonoscopy x2, endoscopy Past Psychological History: ADD/ADHD Smoking Status: Current every day smoker Past Alcohol Use History: Occasional Past Drug Use History: Marijuana - Past Family History Father Additional Family Medical History / Comment(s): Diverticulitis. General Exam - General Exam Comments Initial Comments: General: The patient is awake and alert, in no distress, and does not appear acutely ill. Eye: +3mm pupils are equal, round and reactive to light, extra-ocular movements are intact. No nystagmus. There is normal conjunctiva bilaterally. No signs of icterus. Relief with proparacaine in the right eye. There is an area of irregularity of the cornea at the 6:00 position just inferior to middle of cornea. (-) Tremayne sign Ears, nose, mouth and throat: There are moist mucous membranes and no oral lesions. Neck: The neck is supple, there is no tenderness or JVD. Cardiovascular: There is a regular rate and rhythm. No murmur, rub or gallop is appreciated. Respiratory: Lungs are clear to auscultation, respirations are non-labored, breath sounds are equal. No wheezes, stridor, rales, or rhonchi. Gastrointestinal: Soft, non-distended, non-tender abdomen without masses or organomegaly noted. There is no rebound or guarding present Musculoskeletal: Normal ROM, no tenderness. Strength 5/5. Sensation intact. Pulses equal bilaterally 2+. Neurological: A&O x 3. CN II-XII intact grossly, There are no obvious motor or sensory deficits. Coordination appears grossly intact. Speech is normal. Skin: Skin is warm and dry and no rashes or lesions are noted. Psychiatric: Cooperative, appropriate mood & affect, normal judgment. Limitations: no limitations Course Vital Signs 10/20/20 10/20/20 20:11 22:32 Temperature 98.0 F 98.0 F Pulse Rate 83 83 Respiratory 18 18 Rate Blood Pressure 149/80 149/80 O2 Sat by Pulse 98 98 Oximetry Medical Decision Making - Medical Decision Making Hematuria. hx of stones. recommend urology f/u. no stone on CT, ddx includes recently passed stones. Creatinine Kinase within acceptable limits. Hx and PE concerning for corneal abrasion. (-) Seidels sign. normal pupil exam. pt will be discharged on ciprofloxacin q4h and it was initiated with starting dose in the ER. Dr. Leong agreeable to care plan and discharge. pt aware of return parameters and appropriate f/u. - Lab Data Result diagrams: 10/20/20 Unknown 10/20/20 Unknown Lab Results 10/20/20 10/20/20 10/20/20 Range/Units Unknown Unknown Unknown WBC 10.1 (3.8-10.6) k/uL RBC 4.51 (4.30-5.90) m/uL Hgb 14.2 (13.0-17.5) gm/dL Hct 41.3 (39.0-53.0) % MCV 91.7 (80.0-100.0) fL MCH 31.4 (25.0-35.0) pg MCHC 34.3 (31.0-37.0) g/dL RDW 11.8 (11.5-15.5) % Plt Count 183 (150-450) k/uL MPV 6.9 Neutrophils % 63 % Lymphocytes % 28 % Monocytes % 6 % Eosinophils % 1 % Basophils % 1 % Neutrophils # 6.4 (1.3-7.7) k/uL Lymphocytes # 2.8 (1.0-4.8) k/uL Monocytes # 0.6 (0-1.0) k/uL Eosinophils # 0.1 (0-0.7) k/uL Basophils # 0.1 (0-0.2) k/uL Sodium 137 (137-145) mmol/L Potassium 4.4 (3.5-5.1) mmol/L Chloride 108 H (98-107) mmol/L Carbon Dioxide 23 (22-30) mmol/L Anion Gap 6 mmol/L BUN 17 (9-20) mg/dL Creatinine 0.89 (0.66-1.25) mg/dL Est GFR (CKD-EPI)AfAm >90 (>60 ml/min/1.73 sqM) Est GFR (CKD-EPI)NonAf >90 (>60 ml/min/1.73 sqM) Glucose 102 H (74-99) mg/dL Calcium 9.2 (8.4-10.2) mg/dL Total Bilirubin 0.5 (0.2-1.3) mg/dL AST 34 (17-59) U/L ALT 20 (4-49) U/L Alkaline Phosphatase 71 (38-126) U/L Creatine Kinase 322 H (55-170) U/L Total Protein 6.5 (6.3-8.2) g/dL Albumin 3.8 (3.5-5.0) g/dL Urine Color Yellow Urine Appearance Clear (Clear) Urine pH 6.5 (5.0-8.0) Ur Specific [place] 1.012 (1.001-1.035) Urine Protein Trace H (Negative) Urine Glucose (UA) Negative (Negative) Urine Ketones Negative (Negative) Urine Blood Large H (Negative) Urine Nitrite Negative (Negative) Urine Bilirubin Negative (Negative) Urine Urobilinogen <2.0 (<2.0) mg/dL Ur Leukocyte Esterase Trace H (Negative) Urine RBC >182 H (0-5) /hpf Urine WBC 9 H (0-5) /hpf Ur Squamous Epith Cells <1 (0-4) /hpf Urine Mucus Rare H (None) /hpf Disposition Clinical Impression: Hematuria, Corneal abrasion Disposition: HOME SELF-CARE Condition: Good Instructions (If sedation given, give patient instructions): Corneal Abrasion (ED), Hematuria (ED) Additional Instructions: Please use medication as discussed. Please follow-up with ophthalmology in the next 1-2 days. Please return to emergency room if the symptoms increase or worsen or for any other concerns. Prescriptions: Ciprofloxacin Ophth Soln [Ciloxan 0.3% Ophth Soln] 1 drops RIGHT EYE Q4HR 5 Days #30 ml Is patient prescribed a controlled substance at d/c from ED?: No Referrals: Amrik Saini MD [STAFF PHYSICIAN] - 1-2 days Parker Hurt MD [Primary Care Provider] - 1-2 days Arturo Mcleod MD [STAFF PHYSICIAN] - 1-2 days Time of Disposition: 22:02
== END 2020-10-20 22:34 | disposition home or self-care (01) ==
LOC: EC 20:10
DX: R31.9 Hematuria, unspecified (principal); S05.01XA Injury of conjunctiva and corneal abrasion without foreign body, right eye, initial encounter; F17.200 Nicotine dependence, unspecified, uncomplicated; W22.8XXA Striking against or struck by other objects, initial encounter; Y92.69 Other specified industrial and construction area as the place of occurrence of the external cause; Y99.0 Civilian activity done for income or pay
CPT/HCPCS: 36415; 74176; 80053; 81001; 82550; 85025; 99284

== ENCOUNTER 2021-02-25 10:24 | Emergency (ER) | payer BC, OTHER ==
[2021-02-25 10:36] VITALS: RESP 18; TEMP 97.7
[2021-02-25 11:14] LABS: Basophils % (A) 0 %; Eosinophils # (A) 0.1 k/uL (0-0.7); Eosinophils % (A) 1 %; HCT 44.7 % (39.0-53.0); HGB 15.8 gm/dL (13.0-17.5); Lymphocytes # (A) 1.7 k/uL (1.0-4.8); Lymphocytes % (A) 17 %; MCHC 35.4 g/dL (31.0-37.0); MCV 90.4 fL (80.0-100.0); Mean Platelet Volume 7.2; Monocytes # (A) 0.5 k/uL (0-1.0); Monocytes % (A) 5 %; Neutrophils # (A) 7.6 k/uL (1.3-7.7); Neutrophils % (A) 76 %; Platelet Count 199 k/uL (150-450); RBC 4.95 m/uL (4.30-5.90); RDW 12.2 % (11.5-15.5)
[2021-02-25 11:26] LABS: ALT 28 U/L (4-49); AST 48 U/L (17-59); African American GFR (CKD) >90 (>60 ml/min/1.73 sqM); Albumin 4.7 g/dL (3.5-5.0); Alkaline Phosphatase 75 U/L (38-126); Anion Gap 9 mmol/L; Blood Urea Nitrogen 15 mg/dL (9-20); Calcium 9.8 mg/dL (8.4-10.2); Carbon Dioxide 25 mmol/L (22-30); Chloride 103 mmol/L (98-107); Glucose 104 mg/dL (74-99); Non-African American GFR(CKD) >90 (>60 ml/min/1.73 sqM); Potassium 4.6 mmol/L (3.5-5.1); Sodium 137 mmol/L (137-145); Total Bilirubin 0.7 mg/dL (0.2-1.3); Total Protein 7.8 g/dL (6.3-8.2)
[2021-02-25 11:28] LABS: Amorphous Sediment,Urine Moderate /hpf; Appearance,Urine Cloudy (Clear); Bilirubin,Urine Negative (Negative); Blood,Urine Negative (Negative); Color,Urine Yellow; Glucose,Urine (UA) Negative (Negative); Ketones,Urine Negative (Negative); Leukocyte Esterase,Urine Negative (Negative); Nitrite,Urine Negative (Negative); Protein,Urine Negative (Negative); RBC,Urine 1 /hpf (0-5); Specific Gravity,Urine 1.013 (1.001-1.035); Squamous Epithelial Cell,Urine <1 /hpf (0-4); Urobilinogen,Urine <2.0 mg/dL (<2.0); WBC,Urine 4 /hpf (0-5)
--- NOTE | 2021-02-25 11:54 | ED ---
Abdominal Pain HPI - General Chief Complaint: Abdominal Pain Stated Complaint: Poss hernia Time Seen by Provider: 02/25/21 10:48 Source: patient Mode of arrival: ambulatory Limitations: no limitations - History of Present Illness Initial Comments: 25-year-old male presents to the emergency department with a chief complaint of a possible hernia. Patient reports over the last 2-3 days he has been experiencing dysuria with increased urgency or frequency. States that his penis is making a noise whenever he is urinating. States she also noticed 3 lumps on the right inguinal region. Patient is not concerned for an STD at this time. States his been attempting to conceive with his . He denies any fevers or chills or abdominal pain. Denies any penile discharge, testicular swelling or erythema. Denies hematuria, hematochezia or melena. - Related Data Home Medications Medication Instructions Recorded Confirmed Dextroamphetamine/Amphetamine 10 mg PO DAILY 02/25/21 02/25/21 [Adderall Xr] Previous Rx's Medication Instructions Recorded Phenazopyridine [Pyridium] 200 mg PO TID #6 tablet 02/25/21 Allergies Allergy/AdvReac Type Severity Reaction Status Date / Time No Known Allergies Allergy Verified 02/25/21 11:31 Review of Systems ROS Statement: Those systems with pertinent positive or pertinent negative responses have been documented in the HPI. ROS Other: All systems not noted in ROS Statement are negative. Past Medical History Past Medical History: No Reported History Additional Past Medical History / Comment(s): Ulcerative Colitis (2013) dx with colonoscopy. kidney stones History of Any Multi-Drug Resistant Organisms: None Reported Past Surgical History: Cholecystectomy Additional Past Surgical History / Comment(s): Colonoscopy x2, endoscopy Past Psychological History: ADD/ADHD Smoking Status: Never smoker Past Alcohol Use History: Occasional Past Drug Use History: Marijuana - Past Family History Father Additional Family Medical History / Comment(s): Diverticulitis. General Exam Limitations: no limitations General appearance: alert, in no apparent distress Head exam: Present: atraumatic, normocephalic, normal inspection Eye exam: Present: normal appearance, PERRL, EOMI Pupils: Present: normal accommodation ENT exam: Present: normal exam, normal oropharynx, mucous membranes moist Neck exam: Present: normal inspection, full ROM. Absent: tenderness Respiratory exam: Present: normal lung sounds bilaterally. Absent: respiratory distress Cardiovascular Exam: Present: regular rate, normal rhythm, normal heart sounds. Absent: systolic murmur GI/Abdominal exam: Present: soft. Absent: distended, tenderness, guarding exam: Present: normal inspection, other (Inguinal lymph nodes noted on the right side.). Absent: testicular tenderness, urethral discharge, scrotal swelling, vertical testicular lie, circumcision Extremities exam: Present: normal inspection, full ROM, normal capillary refill. Absent: tenderness Back exam: Present: normal inspection, full ROM. Absent: tenderness, CVA tend erness (R), CVA tenderness (L) Neurological exam: Present: alert, oriented X3 Psychiatric exam: Present: normal affect, normal mood Skin exam: Present: warm, dry, intact, normal color Course Vital Signs 02/25/21 02/25/21 10:33 12:25 Temperature 97.7 F Pulse Rate 75 78 Respiratory 18 18 Rate Blood Pressure 137/84 120/88 O2 Sat by Pulse 97 98 Oximetry Medical Decision Making - Medical Decision Making 25-year-old male presents to the emergency department with a chief complaint of a possible hernia. On physical examination, no signs of any protrusions will suggest a hernia. He does have inguinal lymph nodes in the right side which likely correlates with the lumps that he was complaining of. CBC CMP unremarkable. UA shows no signs of urinary tract infections. There is moderate amount of amorphus sediment. Gonorrhea chlamydia and Trichomonas pending. I advised him to follow up with a urologist. Also prescribed him protamine. Strict return parameters were thoroughly discussed the patient was understanding and agreeable. Case discussed with Dr. Armenta. - Lab Data Result diagrams: 02/25/21 11:05 02/25/21 11:05 Lab Results 02/25/21 02/25/21 02/25/21 Range/Units 10:58 11:05 11:05 WBC 10.0 (3.8-10.6) k/uL RBC 4.95 (4.30-5.90) m/uL Hgb 15.8 (13.0-17.5) gm/dL Hct 44.7 (39.0-53.0) % MCV 90.4 (80.0-100.0) fL MCH 32.0 (25.0-35.0) pg MCHC 35.4 (31.0-37.0) g/dL RDW 12.2 (11.5-15.5) % Plt Count 199 (150-450) k/uL MPV 7.2 Neutrophils % 76 % Lymphocytes % 17 % Monocytes % 5 % Eosinophils % 1 % Basophils % 0 % Neutrophils # 7.6 (1.3-7.7) k/uL Lymphocytes # 1.7 (1.0-4.8) k/uL Monocytes # 0.5 (0-1.0) k/uL Eosinophils # 0.1 (0-0.7) k/uL Basophils # 0.0 (0-0.2) k/uL Sodium 137 (137-145) mmol/L Potassium 4.6 (3.5-5.1) mmol/L Chloride 103 (98-107) mmol/L Carbon Dioxide 25 (22-30) mmol/L Anion Gap 9 mmol/L BUN 15 (9-20) mg/dL Creatinine 0.85 (0.66-1.25) mg/dL Est GFR (CKD-EPI)AfAm >90 (>60 ml/min/1.73 sqM) Est GFR (CKD-EPI)NonAf >90 (>60 ml/min/1.73 sqM) Glucose 104 H (74-99) mg/dL Plasma Lactic Acid [place] (0.7-2.0) mmol/L Calcium 9.8 (8.4-10.2) mg/dL Total Bilirubin 0.7 (0.2-1.3) mg/dL AST 48 (17-59) U/L ALT 28 (4-49) U/L Alkaline Phosphatase 75 (38-126) U/L Total Protein 7.8 (6.3-8.2) g/dL Albumin 4.7 (3.5-5.0) g/dL Urine Color Yellow Urine Appearance Cloudy (Clear) Urine pH 8.0 (5.0-8.0) Ur Specific [place] 1.013 (1.001-1.035) Urine Protein Negative (Negative) Urine Glucose (UA) Negative (Negative) Urine Ketones Negative (Negative) Urine Blood Negative (Negative) Urine Nitrite Negative (Negative) Urine Bilirubin Negative (Negative) Urine Urobilinogen <2.0 (<2.0) mg/dL Ur Leukocyte Esterase Negative (Negative) Urine RBC 1 (0-5) /hpf Urine WBC 4 (0-5) /hpf Ur Squamous Epith Cells <1 (0-4) /hpf Amorphous Sediment Moderate H (None) /hpf 02/25/21 Range/Units 11:05 WBC (3.8-10.6) k/uL RBC (4.30-5.90) m/uL Hgb (13.0-17.5) gm/dL Hct (39.0-53.0) % MCV (80.0-100.0) fL MCH (25.0-35.0) pg MCHC (31.0-37.0) g/dL RDW (11.5-15.5) % Plt Count (150-450) k/uL MPV Neutrophils % % Lymphocytes % % Monocytes % % Eosinophils % % Basophils % % Neutrophils # (1.3-7.7) k/uL Lymphocytes # (1.0-4.8) k/uL Monocytes # (0-1.0) k/uL Eosinophils # (0-0.7) k/uL Basophils # (0-0.2) k/uL Sodium (137-145) mmol/L Potassium (3.5-5.1) mmol/L Chloride (98-107) mmol/L Carbon Dioxide (22-30) mmol/L Anion Gap mmol/L BUN (9-20) mg/dL Creatinine (0.66-1.25) mg/dL Est GFR (CKD-EPI)AfAm (>60 ml/min/1.73 sqM) Est GFR (CKD-EPI)NonAf (>60 ml/min/1.73 sqM) Glucose (74-99) mg/dL Plasma Lactic Acid [place] 1.1 (0.7-2.0) mmol/L Calcium (8.4-10.2) mg/dL Total Bilirubin (0.2-1.3) mg/dL AST (17-59) U/L ALT (4-49) U/L Alkaline Phosphatase (38-126) U/L Total Protein (6.3-8.2) g/dL Albumin (3.5-5.0) g/dL Urine Color Urine Appearance (Clear) Urine pH (5.0-8.0) Ur Specific [place] (1.001-1.035) Urine Protein (Negative) Urine Glucose (UA) (Negative) Urine Ketones (Negative) Urine Blood (Negative) Urine Nitrite (Negative) Urine Bilirubin (Negative) Urine Urobilinogen (<2.0) mg/dL Ur Leukocyte Esterase (Negative) Urine RBC (0-5) /hpf Urine WBC (0-5) /hpf Ur Squamous Epith Cells (0-4) /hpf Amorphous Sediment (None) /hpf Disposition Clinical Impression: Urinary tract infection symptoms Disposition: HOME SELF-CARE Condition: Stable Instructions (If sedation given, give patient instructions): Dysuria (ED) Additional Instructions: Follow-up with urologist. Return to emergency department if symptoms worsen. Prescriptions: Phenazopyridine [Pyridium] 200 mg PO TID #6 tablet Is patient prescribed a controlled substance at d/c from ED?: No Referrals: Parker Hurt MD [Primary Care Provider] - 1-2 days Kyrie Tran MD [STAFF PHYSICIAN] - 1-2 days Time of Disposition: 12:13
[2021-02-25 12:26] VITALS: BP 120/88; PULSE 78
[2021-02-26 14:49] LABS: C. trachomatis,PCR Negative (Neg,Equiv); Chlamydia trachomatis Source Urine; N. gonorrhoeae,PCR Negative (Neg,Equiv); Neisseria Source Urine
== END 2021-02-25 12:25 | disposition home or self-care (01) ==
LOC: EC 10:24
DX: N39.0 Urinary tract infection, site not specified (principal); R59.0 Localized enlarged lymph nodes; F90.9 Attention-deficit hyperactivity disorder, unspecified type; Z79.899 Other long term (current) drug therapy; Z87.19 Personal history of other diseases of the digestive system; Z87.442 Personal history of urinary calculi; Z98.890 Other specified postprocedural states
CPT/HCPCS: 36415; 80053; 81001; 83605; 85025; 87491; 87591; 99284

== ENCOUNTER 2021-06-23 10:26 | Emergency (ER) | payer BC, OTHER ==
[2021-06-23] MEDS ORDERED: SODIUM CHLORIDE 0.9% 1,000 ML IV STA (10:49)
[2021-06-23] MEDS ORDERED: KETOROLAC 15 MG/ML 1 ML VIAL IVP STA (10:49)
[2021-06-23] MEDS ORDERED: ONDANSETRON 4 MG/2 ML VIAL IVP STA (10:49)
--- NOTE | 2021-06-23 10:57 | ED ---
Abdominal Pain HPI - General Chief Complaint: Abdominal Pain Stated Complaint: abd pain Time Seen by Provider: 06/23/21 10:35 Source: patient Mode of arrival: ambulatory Limitations: no limitations - History of Present Illness Initial Comments: Patient is a 26-year-old male with history of ulcerative colitis, presenting to the emergency Department with complaints of abdominal pain for the past 2 days. He states this feels different than his normal UC pain. He describes it starting around in the middle of his belly button but today has progressed over to the right lower quadrant. He states he has had History of kidney stones in the past but it does not feel like that either. He does admit to nausea, couple episodes of vomiting. He said no diarrhea. He's had no fevers but has had night sweats and chills. He took a [place] this morning with no relief. He's had history of cholecystectomy, no other abdominal surgeries. No chest pains or sh ortness of breath. He has no further complaints. - Related Data Home Medications Medication Instructions Recorded Confirmed Dextroamphetamine/Amphetamine 10 mg PO DAILY 02/25/21 02/25/21 [Adderall Xr] Previous Rx's Medication Instructions Recorded Phenazopyridine [Pyridium] 200 mg PO TID #6 tablet 02/25/21 Allergies Allergy/AdvReac Type Severity Reaction Status Date / Time No Known Allergies Allergy Verified 06/23/21 10:31 Review of Systems ROS Statement: Those systems with pertinent positive or pertinent negative responses have been documented in the HPI. ROS Other: All systems not noted in ROS Statement are negative. Past Medical History Past Medical History: No Reported History Additional Past Medical History / Comment(s): Ulcerative Colitis (2014) dx with colonoscopy. kidney stones History of Any Multi-Drug Resistant Organisms: None Reported Past Surgical History: Cholecystectomy Additional Past Surgical History / Comment(s): Colonoscopy x2, endoscopy Past Psychological History: ADD/ADHD Smoking Status: Never smoker Past Alcohol Use History: Occasional Past Drug Use History: Marijuana - Past Family History Father Additional Family Medical History / Comment(s): Diverticulitis. General Exam - General Exam Comments Initial Comments: GENERAL: Patient is well-developed and well-nourished. Patient is nontoxic and in mild distress. HEAD: Atraumatic, normocephalic. EYES: Pupils equal round and reactive to light, extraocular movements intact, sclera anicteric, conjunctiva are normal. Eyelids were unremarkable. ENT: Nares patent, oropharynx clear without exudates. Moist mucous membranes. NECK: Normal range of motion, supple without lymphadenopathy or JVD. LUNGS: Unlabored respirations. Breath sounds clear to auscultation bilaterally and equal. No wheezes rales or rhonchi. HEART: Regular rate and rhythm without murmurs, rubs or gallops. ABDOMEN: Soft, under to palpation of the right lower quadrant, normoactive bowel sounds. No guarding, no rebound. No masses appreciated. : Deferred MUSCULOSKELETAL: Normal extremities with adequate strength and normal range of motion, no pitting or edema. No clubbing or cyanosis. NEUROLOGICAL: Patient is alert and oriented x 3. PSYCH: Normal mood, normal affect. SKIN: Warm, Dry, normal turgor, no rashes or lesions noted. Limitations: no limitations Course Vital Signs 06/23/21 06/23/21 10:31 14:22 Temperature 98 F 98.1 F Pulse Rate 64 48 L Respiratory 18 16 Rate Blood Pressure 164/107 123/73 O2 Sat by Pulse 99 100 Oximetry Medical Decision Making - Medical Decision Making Patient is a 26-year-old male with history of ulcerative colitis, presenting with right lower quadrant abdominal pain 2 days as well as some associated nausea and vomiting. No fevers. Patient's labs show a slight white count 11.3, which is lites are stable, lipase is normal, lactic acid is 1.5. Urine shows trace blood, rare bacteria. He denies any dysuria. CT of the abdomen and pelvis shows mild circumferential gallbladder wall thickening, additional circumferential wall thickening of the rectum and possible mild surrounding fat stranding, correlate to exclude nonspecific colitis. He does have a bilateral L5 pars defect, this was there previously. Patient was given fluids, morphine, Toradol, steroids and Bentyl with only minimal improvement of symptoms. I discussed this sent him home with GI follow-up however patient refuses this. He states he is an immense amount of pain and does not want to go home. I discussed the patient that we do not have GI coverage here at the hospital and that he would need to be transferred. I did speak with Dr. Lauren Rolon, who accepts transfer. Patient refuses to go by ambulance, he states he wants to drive and his girlfriend will be driving him over there. Patient will be discharged here. CAse discussed with Dr. Meeks. - Lab Data Result diagrams: 06/23/21 11:24 06/23/21 11:24 Lab Results 06/23/21 06/23/21 06/23/21 Range/Units 11:24 11:24 11:24 WBC 11.3 H (3.8-10.6) k/uL RBC 4.92 (4.30-5.90) m/uL Hgb 16.0 (13.0-17.5) gm/dL Hct 45.9 (39.0-53.0) % MCV 93.2 (80.0-100.0) fL MCH 32.4 (25.0-35.0) pg MCHC 34.8 (31.0-37.0) g/dL RDW 11.9 (11.5-15.5) % Plt Count 220 (150-450) k/uL MPV 7.7 Neutrophils % 77 % Lymphocytes % 14 % Monocytes % 6 % Eosinophils % 1 % Basophils % 1 % Neutrophils # 8.8 H (1.3-7.7) k/uL Lymphocytes # 1.6 (1.0-4.8) k/uL Monocytes # 0.7 (0-1.0) k/uL Eosinophils # 0.1 (0-0.7) k/uL Basophils # 0.1 (0-0.2) k/uL Sodium 137 (137-145) mmol/L Potassium 4.8 (3.5-5.1) mmol/L Chloride 107 (98-107) mmol/L Carbon Dioxide 24 (22-30) mmol/L Anion Gap 6 mmol/L BUN 11 (9-20) mg/dL Creatinine 1.00 (0.66-1.25) mg/dL Est GFR (CKD-EPI)AfAm >90 (>60 ml/min/1.73 sqM) Est GFR (CKD-EPI)NonAf >90 (>60 ml/min/1.73 sqM) Glucose 99 (74-99) mg/dL Plasma Lactic Acid [place] 1.5 (0.7-2.0) mmol/L Calcium 9.7 (8.4-10.2) mg/dL Total Bilirubin 0.7 (0.2-1.3) mg/dL AST 31 (17-59) U/L ALT 18 (4-49) U/L Alkaline Phosphatase 52 (38-126) U/L Total Protein 7.3 (6.3-8.2) g/dL Albumin 4.4 (3.5-5.0) g/dL Amylase 69 (30-110) U/L Lipase 28 (23-300) U/L Urine Color Urine Appearance (Clear) Urine pH (5.0-8.0) Ur Specific [place] (1.001-1.035) Urine Protein (Negative) Urine Glucose (UA) (Negative) Urine Ketones (Negative) Urine Blood (Negative) Urine Nitrite (Negative) Urine Bilirubin (Negative) Urine Urobilinogen (<2.0) mg/dL Ur Leukocyte Esterase (Negative) Urine RBC (0-5) /hpf Urine WBC (0-5) /hpf Ur Squamous Epith Cells (0-4) /hpf Urine Bacteria (None) /hpf Urine Mucus (None) /hpf 06/23/21 Range/Units 11:30 WBC (3.8-10.6) k/uL RBC (4.30-5.90) m/uL Hgb (13.0-17.5) gm/dL Hct (39.0-53.0) % MCV (80.0-100.0) fL MCH (25.0-35.0) pg MCHC (31.0-37.0) g/dL RDW (11.5-15.5) % Plt Count (150-450) k/uL MPV Neutrophils % % Lymphocytes % % Monocytes % % Eosinophils % % Basophils % % Neutrophils # (1.3-7.7) k/uL Lymphocytes # (1.0-4.8) k/uL Monocytes # (0-1.0) k/uL Eosinophils # (0-0.7) k/uL Basophils # (0-0.2) k/uL Sodium (137-145) mmol/L Potassium (3.5-5.1) mmol/L Chloride (98-107) mmol/L Carbon Dioxide (22-30) mmol/L Anion Gap mmol/L BUN (9-20) mg/dL Creatinine (0.66-1.25) mg/dL Est GFR (CKD-EPI)AfAm (>60 ml/min/1.73 sqM) Est GFR (CKD-EPI)NonAf (>60 ml/min/1.73 sqM) Glucose (74-99) mg/dL Plasma Lactic Acid [place] (0.7-2.0) mmol/L Calcium (8.4-10.2) mg/dL Total Bilirubin (0.2-1.3) mg/dL AST (17-59) U/L ALT (4-49) U/L Alkaline Phosphatase (38-126) U/L Total Protein (6.3-8.2) g/dL Albumin (3.5-5.0) g/dL Amylase (30-110) U/L Lipase (23-300) U/L Urine Color Light Yellow Urine Appearance Clear (Clear) Urine pH 5.5 (5.0-8.0) Ur Specific [place] 1.010 (1.001-1.035) Urine Protein Negative (Negative) Urine Glucose (UA) Negative (Negative) Urine Ketones Negative (Negative) Urine Blood Trace H (Negative) Urine Nitrite Negative (Negative) Urine Bilirubin Negative (Negative) Urine Urobilinogen <2.0 (<2.0) mg/dL Ur Leukocyte Esterase Trace H (Negative) Urine RBC 5 (0-5) /hpf Urine WBC 4 (0-5) /hpf Ur Squamous Epith Cells 1 (0-4) /hpf Urine Bacteria Rare H (None) /hpf Urine Mucus Rare H (None) /hpf Disposition Clinical Impression: Abdominal pain, Ulcerative colitis Disposition: OTHER INSTITUTION NOT DEFINED Condition: Stable Is patient prescribed a controlled substance at d/c from ED?: No Referrals: Parker Hurt MD [Primary Care Provider] - 1-2 days - Out of Hospital Transfer - Req. Specs Out of Hospital Transfer - Requested Specifics: Other Emergency Center ([facility])
[2021-06-23] MEDS ORDERED: MORPHINE SULFATE 4 MG/ML SYRINGE IVP STA (11:50)
[2021-06-23 11:58] LABS: Basophils # (A) 0.1 k/uL (0-0.2); Basophils % (A) 1 %; Eosinophils # (A) 0.1 k/uL (0-0.7); Eosinophils % (A) 1 %; HCT 45.9 % (39.0-53.0); Lymphocytes # (A) 1.6 k/uL (1.0-4.8); Lymphocytes % (A) 14 %; MCH 32.4 pg (25.0-35.0); MCHC 34.8 g/dL (31.0-37.0); MCV 93.2 fL (80.0-100.0); Mean Platelet Volume 7.7; Monocytes # (A) 0.7 k/uL (0-1.0); Monocytes % (A) 6 %; Neutrophils # (A) 8.8 k/uL (1.3-7.7); Neutrophils % (A) 77 %; Platelet Count 220 k/uL (150-450); RBC 4.92 m/uL (4.30-5.90); RDW 11.9 % (11.5-15.5); WBC 11.3 k/uL (3.8-10.6)
[2021-06-23 12:04] LABS: Appearance,Urine Clear (Clear); Bacteria,Urine Rare /hpf; Bilirubin,Urine Negative (Negative); Blood,Urine Trace (Negative); Color,Urine Light Yellow; Glucose,Urine (UA) Negative (Negative); Ketones,Urine Negative (Negative); Leukocyte Esterase,Urine Trace (Negative); Mucus,Urine Rare /hpf; Nitrite,Urine Negative (Negative); PH, Urine 5.5 (5.0-8.0); Protein,Urine Negative (Negative); RBC,Urine 5 /hpf (0-5); Squamous Epithelial Cell,Urine 1 /hpf (0-4); Urobilinogen,Urine <2.0 mg/dL (<2.0); WBC,Urine 4 /hpf (0-5)
[2021-06-23 12:06] LABS: ALT 18 U/L (4-49); AST 31 U/L (17-59); African American GFR (CKD) >90 (>60 ml/min/1.73 sqM); Albumin 4.4 g/dL (3.5-5.0); Alkaline Phosphatase 52 U/L (38-126); Amylase 69 U/L (30-110); Anion Gap 6 mmol/L; Blood Urea Nitrogen 11 mg/dL (9-20); Calcium 9.7 mg/dL (8.4-10.2); Carbon Dioxide 24 mmol/L (22-30); Chloride 107 mmol/L (98-107); Glucose 99 mg/dL (74-99); Lipase 28 U/L (23-300); Non-African American GFR(CKD) >90 (>60 ml/min/1.73 sqM); Potassium 4.8 mmol/L (3.5-5.1); Sodium 137 mmol/L (137-145); Total Bilirubin 0.7 mg/dL (0.2-1.3); Total Protein 7.3 g/dL (6.3-8.2)
--- NOTE | 2021-06-23 12:54 | CT ---
EXAMINATION TYPE: CT abdomen pelvis w con DATE OF EXAM: 06/23/2021 COMPARISON: 10/20/2020 HISTORY: 26-year-old male RLQ Pain x 2 days with nausea and vomiting TECHNIQUE: Contiguous axial scanning of the abdomen and pelvis following administration of 100 ml Iso alex 300 IV contrast. Delayed images through the kidneys and coronal/sagittal reconstructions perform ed. CT DLP: 727.4 mGycm Automated exposure control for dose reduction was used. FINDINGS: Heart normal size without pericardial effusion. Lung bases clear without pleural effusion. Liver borderline enlarged at 17.7 cm, unchanged. No focal liver lesion. No biliary ductal dilatation. Portal venous system is patent. Gallbladder not seen, likely surgically absent. Adrenal glands, spleen with tiny anterior splenule, and pancreas appear within normal. On delayed kidney images, there is subtle patchy hypoenhancement within the bilateral kidneys. Otherw ise, symmetric excretion on both sides. No dilated small bowel, free fluid, or free air. No mesenteric or retroperitoneal lymphadenopathy. Suspect visualization of the tiny normal caliber appendix, axial image 63 and 64. Unable to exclude s ome circumferential wall thickening of the rectum, axial image 77 and 75 and minimal surrounding fat stranding. No significant stool burden. Circumferential bladder wall thickening may be due to nondistention. No abnormal fluid collection in the pelvis or pelvic lymphadenopathy. Bones: There are bilateral L5 pars defects with grade 1 anterolisthesis at L5-S1. IMPRESSION: 1. DELAYED KIDNEY IMAGES SHOW SUBTLE PATCHY HYPOENHANCEMENT WITHIN THE BILATERAL KIDNEYS. THIS MAY BE ON A TECHNICAL BASIS. CORRELATE TO EXCLUDE PYELONEPHRITIS. 2. MILD CIRCUMFERENTIAL BLADDER WALL THICKENING MAY RELATE TO INCOMPLETE DISTENTION OR CYSTITIS. 3. ADDITIONAL CIRCUMFERENTIAL WALL THICKENING OF THE RECTUM AND POSSIBLE MINIMAL SURROUNDING FAT STRA NDING. CORRELATE TO EXCLUDE NONSPECIFIC COLITIS. 4. BILATERAL L5 PARS DEFECTS WITH GRADE 1 ANTEROLISTHESIS AT L5-S1 REDEMONSTRATED. OUTPATIENT NEUROSU RGICAL REFERRAL CAN BE PERFORMED FOR ANY POTENTIAL FUTURE MANAGEMENT.
[2021-06-23] MEDS ORDERED: DICYCLOMINE 10 MG/ML 2 ML AMP IM STA (13:18)
[2021-06-23] MEDS ORDERED: methylPREDNISolone SOD SUCCI 125 MG/2 ML VIAL IV STA (13:21)
[2021-06-23 14:25] VITALS: BP 123/73; PULSE 48; RESP 16; TEMP 98.1
== END 2021-06-23 14:45 | disposition other institution (70) ==
LOC: EC 10:26
DX: K51.90 Ulcerative colitis, unspecified, without complications (principal); F90.9 Attention-deficit hyperactivity disorder, unspecified type; F12.90 Cannabis use, unspecified, uncomplicated; Z87.442 Personal history of urinary calculi; Z90.49 Acquired absence of other specified parts of digestive tract
CPT/HCPCS: 99285; 96374; 96375 ×3; 96361; 96372; 36415; 80053; 82150; 83605; 83690; 85025; 81001; 74177; J2270; J0500; J2930; J2405; J1885; Q9967

== ENCOUNTER 2021-08-15 22:07 | Emergency (ER) | payer BC, OTHER ==
[2021-08-15 22:24] VITALS: BP 132/77; PULSE 73; RESP 18; TEMP 98.2
[2021-08-15] MEDS ORDERED: HYDROcodone/APAP 5-325MG 1 EACH TAB PO STA (22:56)
--- NOTE | 2021-08-15 23:00 | XR ---
EXAMINATION TYPE: XR knee complete RT DATE OF EXAM: 08/15/2021 COMPARISON: NONE HISTORY: Knee pain TECHNIQUE: 3 views FINDINGS: There is knee joint effusion with mixed attenuation. There is air bubbles in the joint flui d. This is consistent with laceration. I see no fracture nor dislocation. Joint spaces are fairly normal. IMPRESSION: Complex knee joint effusion appears new compared to old exam. Joint fluid increased karina red to old exam. No fracture.
[2021-08-15] MEDS ORDERED: LIDOCAINE 1% INJ 10MG/ML (20 ML MDV) SQ ONE (23:04)
--- NOTE | 2021-08-15 23:28 | ED ---
General Adult HPI - General Chief complaint: Wound/Laceration Stated complaint: Knee laceration Time Seen by Provider: 08/15/21 22:43 Source: patient Mode of arrival: ambulatory Limitations: no limitations - History of Present Illness Initial comments: 26-year-old male presents emergency Department with a chief complaint of right knee pain. Patient reports the pain started after he fell off a porch and into a bite. Patient reports now he has swelling and a laceration to the right knee. Patient reports the pain is exacerbated with knee flexion. However, he has full range of motion with extension. Reports the bleeding is since most resolved. Tetanus is up-to-date. Denies any weakness or paresthesias to the rest of the leg. Reports swelling to the right knee. - Related Data Home Medications Medication Instructions Recorded Confirmed No Known Home Medications 08/15/21 08/15/21 Allergies Allergy/AdvReac Type Severity Reaction Status Date / Time No Known Allergies Allergy Verified 08/15/21 22:22 Review of Systems ROS Statement: Those systems with pertinent positive or pertinent negative responses have been documented in the HPI. ROS Other: All systems not noted in ROS Statement are negative. Past Medical History Past Medical History: No Reported History Additional Past Medical History / Comment(s): Ulcerative Colitis (2013) dx with colonoscopy. kidney stones History of Any Multi-Drug Resistant Organisms: None Reported Past Surgical History: Cholecystectomy Additional Past Surgical History / Comment(s): Colonoscopy x2, endoscopy Past Psychological History: ADD/ADHD Smoking Status: Never smoker Past Alcohol Use History: Occasional Past Drug Use History: Marijuana - Past Family History Father Additional Family Medical History / Comment(s): Diverticulitis. General Exam Limitations: no limitations General appearance: alert, in no apparent distress Head exam: Present: atraumatic, normocephalic, normal inspection Eye exam: Present: normal appearance, PERRL Pupils: Present: normal accommodation ENT exam: Present: normal exam, normal oropharynx, mucous membranes moist Neck exam: Present: normal inspection, full ROM. Absent: tenderness, lymphadenopathy Respiratory exam: Present: normal lung sounds bilaterally. Absent: respiratory distress Cardiovascular Exam: Present: regular rate, normal rhythm, normal heart sounds. Absent: systolic murmur Extremities exam: Present: tenderness (Right knee tenderness), normal capillary refill, other (Palpable DP and PT bilaterally). Absent: normal inspection (Swelling and laceration to the right knee), full ROM (Limited range of motion right knee with flexion), pedal edema, joint swelling, calf tenderness Back exam: Present: normal inspection, full ROM. Absent: tenderness Neurological exam: Present: alert, oriented X3 Psychiatric exam: Present: normal affect, normal mood Skin exam: Present: warm, dry, intact, normal color Course Vital Signs 08/15/21 22:22 Temperature 98.2 F Pulse Rate 73 Respiratory 18 Rate Blood Pressure 132/77 O2 Sat by Pulse 98 Oximetry Procedures - Laceration Laceration #1 Consent Obtained: verbal consent Indication: laceration Site: lower extremity Size (cm): 1 Description: flap, clean Depth: simple, single layer Sedation/Analgesia: none Anesthetic Used: lidocaine 1%, with epi Anesthesia Technique: local infiltration Amount (mls): 2 Pre-repair: irrigated extensively, deep structures intact Type of Sutures: nylon Size of Sutures: 4-0 Number of Sutures: 3 Technique: simple, interrupted Patient Tolerated Procedure: well, no complications Medical Decision Making - Medical Decision Making 26-year-old male presents to the emergency department with a chief complaint of right knee injury. Physical examination, he has swelling and a laceration over the right knee. However, he is neurovascularly intact. Patient was given analgesia emergency department. X-ray of the right knee shows a complex joint effusion. The laceration site was thoroughly irrigated and repaired with 3 sutures. Patient started procedure well. I did apply a knee immobilizer. Advised him to follow-up with an behavioral health specialist. Return parameters were thoroughly discussed patient is understanding and agreeable. Case discussed with physician. Disposition Clinical Impression: Laceration, Knee effusion, right, Right knee injury Disposition: HOME SELF-CARE Condition: Stable Instructions (If sedation given, give patient instructions): Care For Your Stitches (DC), Laceration (DC) Additional Instructions: Follow-up with an behavioral health specialist. Return to emergency department if symptoms worsen. Please return to the emergency room in 10-14 days to have sutures removed. Please watch for any signs of infection which may include increased pain, swelling, redness, fever or chills. Please return to emergency room for any signs of infection do occur. Please use clean soap and water over the area to prevent scabbing over your stitches. Please leave wound covered for the first 24-48 hours and then leave wound open to air. Please return to the emergency room for any other concerns. Is patient prescribed a controlled substance at d/c from ED?: No Referrals: Parker Hurt MD [Primary Care Provider] - 1-2 days Grayson Strong MD [Medical Doctor] - 1-2 days Time of Disposition: 23:28
== END 2021-08-15 23:45 | disposition home or self-care (01) ==
LOC: EC 22:07
DX: S81.011A Laceration without foreign body, right knee, initial encounter (principal); F12.90 Cannabis use, unspecified, uncomplicated; F90.9 Attention-deficit hyperactivity disorder, unspecified type; Z87.442 Personal history of urinary calculi; Z90.49 Acquired absence of other specified parts of digestive tract; W18.30XA Fall on same level, unspecified, initial encounter; Y92.008 Other place in unspecified non-institutional (private) residence as the place of occurrence of the external cause
CPT/HCPCS: 73562; 99284; 12001; L1830; J2001

== ENCOUNTER 2021-08-21 14:51 | Emergency (ER) | payer BC, OTHER ==
[2021-08-21 15:32] VITALS: RESP 16
[2021-08-21] MEDS ORDERED: DIPH,PERTUS(ACELL)TETVAC-LF 0.5 ML VIAL IM ONE (16:16)
[2021-08-21] MEDS ORDERED: MORPHINE SULFATE 4 MG/ML SYRINGE IM STA ×2 (16:16→17:40)
[2021-08-21] MEDS ORDERED: KETOROLAC 15 MG/ML 1 ML VIAL IM STA (16:16)
--- NOTE | 2021-08-21 17:22 | XR ---
EXAMINATION TYPE: XR knee complete RT DATE OF EXAM: 08/21/2021 COMPARISON: 08/15/2021 HISTORY: Injury. Pain TECHNIQUE: 3 views FINDINGS: I see no fracture nor dislocation. Joint spaces are normal. There is no sign of knee joint effusion. There is some soft tissue swelling anterior to the patella. IMPRESSION: Anterior soft tissue swelling. No fracture. There is clearing of the soft tissue air comp ared to old exam.
[2021-08-21] MEDS ORDERED: CEPHALEXIN 500MG STARTER PACK 4 CAP BTL PO STA (17:27)
--- NOTE | 2021-08-21 17:29 | ED ---
General Adult HPI - General Chief complaint: Extremity Problem,Nontraumatic Stated complaint: r knee pain Time Seen by Provider: 08/21/21 15:56 Source: patient Mode of arrival: wheelchair Limitations: no limitations - History of Present Illness Initial comments: 26-year-old male patient presents to the emergency department today for evaluation of right knee pain, swelling, redness. States that he twisted the knee about 6 days ago and had laceration repaired. Patient states her last couple days noticed increased redness and pain. States he is able to bend and straighten the knee though it does hurt. His fever or chills. Denies nausea or vomiting. Denies swelling to the lower part of the leg or foot. States he did take [place] at home without relief. Denies any chronic medical conditions. - Related Data Previous Rx's Medication Instructions Recorded Cephalexin [Keflex] 500 mg PO Q6H #40 cap 08/21/21 Ibuprofen [Motrin] 600 mg PO Q8HR PRN #30 tab 08/21/21 Allergies Allergy/AdvReac Type Severity Reaction Status Date / Time No Known Allergies Allergy Verified 08/21/21 15:32 Review of Systems ROS Statement: Those systems with pertinent positive or pertinent negative responses have been documented in the HPI. ROS Other: All systems not noted in ROS Statement are negative. Past Medical History Past Medical History: No Reported History Additional Past Medical History / Comment(s): Ulcerative Colitis (2013) dx with colonoscopy. kidney stones History of Any Multi-Drug Resistant Organisms: None Reported Past Surgical History: Cholecystectomy Additional Past Surgical History / Comment(s): Colonoscopy x2, endoscopy Past Psychological History: ADD/ADHD Smoking Status: Never smoker Past Alcohol Use History: Occasional Past Drug Use History: Marijuana - Past Family History Father Additional Family Medical History / Comment(s): Diverticulitis. General Exam Limitations: no limitations General appearance: alert, in no apparent distress, other (This is a well- developed, well-nourished adult male patient in no acute distress. Vital signs upon presentation are temperature 98.6F, pulse 76, respirations 16, blood pressure 115/63, pulse ox 96% on room air.) ENT exam: Present: normal exam, normal oropharynx, mucous membranes moist Respiratory exam: Present: normal lung sounds bilaterally. Absent: respiratory distress, wheezes, rales, rhonchi, stridor Cardiovascular Exam: Present: regular rate, normal rhythm, normal heart sounds. Absent: systolic murmur, diastolic murmur, rubs, gallop, clicks Extremities exam: Present: full ROM, normal capillary refill, other (There is small laceration noted to the tear aspect of the right knee, is approximated with sutures. There is surrounding swelling and erythema. Knee is hot to touch. Patient does exhibit full flexion and extension. Pedal posttibial pulses are 2+. No streaking or lymphangitis noted.). Absent: tenderness, pedal edema, joint swelling, calf tenderness Neurological exam: Present: alert, oriented X3, CN II-XII intact Psychiatric exam: Present: normal affect, normal mood Skin exam: Present: warm, dry, intact, normal color. Absent: rash Course Vital Signs 08/21/21 08/21/21 15:29 17:53 Temperature 98.6 F 98.1 F Pulse Rate 76 60 Respiratory 16 16 Rate Blood Pressure 115/63 134/83 O2 Sat by Pulse 96 98 Oximetry Medical Decision Making - Medical Decision Making 26-year-old male patient presented to the emergency department today for evaluation of redness, swelling, pain to the right knee. Physical examination did reveal soft tissue swelling, erythema overlying the right knee. There is central anterior knee laceration that is repaired. Neurovascular status is otherwise intact. X-ray was obtained and did show superficial swelling over the right knee. No joint effusion. Patient is afebrile, vital signs. We'll treat for cellulitis with Keflex. Is given pain medication here. He'll be discharged to follow-up with his primary care physician for recheck in 1-2 days. Return parameters are discussed in detail. He verbalizes understanding and agrees with this plan. Case discussed with my attending Dr. Lanza. - Radiology Data Radiology results: report reviewed, image reviewed 3 views of the right knee are obtained. Report was reviewed in its entirety. Impression by Dr. Mejia shows anterior soft tissue swelling. No fracture. There is clearing of the soft tissue air compared to old exam. Disposition Clinical Impression: Cellulitis of right knee Disposition: HOME SELF-CARE Condition: Good Instructions (If sedation given, give patient instructions): Cellulitis (ED) Additional Instructions: Complete antibiotic prescription in full. Take ibuprofen in addition sure home pain medication for relief. Keep elevated. Follow-up with the primary care physician for recheck in 1-2 days. Stitches out as previously directed. Return for any new, worsening, or concerning symptoms. Prescriptions: Cephalexin [Keflex] 500 mg PO Q6H #40 cap Ibuprofen [Motrin] 600 mg PO Q8HR PRN #30 tab PRN Reason: Pain Is patient prescribed a controlled substance at d/c from ED?: No Referrals: Parker Hurt MD [Primary Care Provider] - 1-2 days Time of Disposition: 17:28
[2021-08-21 17:54] VITALS: BP 134/83; PULSE 60; TEMP 98.1
== END 2021-08-21 17:53 | disposition home or self-care (01) ==
LOC: EC 14:51
DX: L03.115 Cellulitis of right lower limb (principal); F90.9 Attention-deficit hyperactivity disorder, unspecified type; F12.90 Cannabis use, unspecified, uncomplicated; Z90.49 Acquired absence of other specified parts of digestive tract
CPT/HCPCS: 99283; 96372 ×3; 90471; 73562; 90715; J2270; J1885

== ENCOUNTER 2022-04-02 07:58 | Emergency (ER) | payer BC, OTHER ==
[2022-04-02 08:19] VITALS: BP 116/69; PULSE 86; RESP 18; TEMP 98
[2022-04-02] MEDS ORDERED: SODIUM CHLORIDE 0.9% 500 ML 500 ML IV STA (08:36)
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
[2022-04-02 09:17] LABS: Basophils % (A) 0 %; Eosinophils % (A) 1 %; HCT 48.1 % (39.0-53.0); HGB 16.5 gm/dL (13.0-17.5); Lymphocytes # (A) 1.2 k/uL (1.0-4.8); Lymphocytes % (A) 23 %; MCH 31.9 pg (25.0-35.0); MCHC 34.3 g/dL (31.0-37.0); Mean Platelet Volume 7.4; Monocytes # (A) 0.3 k/uL (0-1.0); Monocytes % (A) 5 %; Neutrophils # (A) 3.8 k/uL (1.3-7.7); Neutrophils % (A) 70 %; Platelet Count 218 k/uL (150-450); RBC 5.17 m/uL (4.30-5.90); RDW 12.4 % (11.5-15.5); WBC 5.4 k/uL (3.8-10.6)
[2022-04-02 09:25] LABS: ALT 19 U/L (4-49); AST 29 U/L (17-59); African American GFR (CKD) >90 (>60 ml/min/1.73 sqM); Albumin 4.8 g/dL (3.5-5.0); Alkaline Phosphatase 50 U/L (38-126); Amylase 67 U/L (30-110); Anion Gap 9 mmol/L; Appearance,Urine Clear (Clear); Bilirubin,Urine Negative (Negative); Blood Urea Nitrogen 9 mg/dL (9-20); Blood,Urine Small (Negative); Calcium 9.4 mg/dL (8.4-10.2); Carbon Dioxide 23 mmol/L (22-30); Chloride 106 mmol/L (98-107); Color,Urine Yellow; Glucose 147 mg/dL (74-99); Glucose,Urine (UA) Negative (Negative); Ketones,Urine Negative (Negative); Leukocyte Esterase,Urine Negative (Negative); Lipase 30 U/L (23-300); Mucus,Urine Moderate /hpf; Nitrite,Urine Negative (Negative); Non-African American GFR(CKD) >90 (>60 ml/min/1.73 sqM); PH, Urine 5.5 (5.0-8.0); Potassium 4.3 mmol/L (3.5-5.1); Protein,Urine Trace (Negative); RBC,Urine 1 /hpf (0-5); Sodium 138 mmol/L (137-145); Specific Gravity,Urine 1.024 (1.001-1.035); Squamous Epithelial Cell,Urine 1 /hpf (0-4); Total Bilirubin 1.1 mg/dL (0.2-1.3); Urobilinogen,Urine <2.0 mg/dL (<2.0); WBC,Urine 3 /hpf (0-5)
[2022-04-02] MEDS ORDERED: KETOROLAC 15 MG/ML 1 ML VIAL IVP STA (09:37)
== END 2022-04-02 10:02 | disposition home or self-care (01) ==
LOC: EC 07:58
DX: R10.9 Unspecified abdominal pain (principal); R11.0 Nausea; R19.7 Diarrhea, unspecified; Z87.442 Personal history of urinary calculi; Z90.49 Acquired absence of other specified parts of digestive tract
CPT/HCPCS: 36415; 80053; 82150; 83605; 83690; 85025; 81001; 99284; 96374; J1885

== ENCOUNTER 2022-11-04 15:26 | Emergency (ER) | payer OTHER ==
[2022-11-04 15:32] VITALS: BP 150/91; PULSE 95; RESP 16; TEMP 98
[2022-11-04] MEDS ORDERED: MORPHINE SULFATE 4 MG/ML SYRINGE IVP STA (15:40)
[2022-11-04] MEDS ORDERED: DIPH,PERTUS(ACELL)TETVAC-LF 0.5 ML VIAL IM ONE (15:40)
[2022-11-04] MEDS ORDERED: SODIUM CHLORIDE 0.9% 1,000 ML IV STA (15:40)
[2022-11-04 16:24] LABS: Basophils % (A) 1 %; Eosinophils % (A) 0 %; HCT 45.5 % (39.0-53.0); HGB 16.5 gm/dL (13.0-17.5); Lymphocytes # (A) 1.2 k/uL (1.0-4.8); Lymphocytes % (A) 15 %; MCH 31.7 pg (25.0-35.0); MCHC 36.2 g/dL (31.0-37.0); MCV 87.6 fL (80.0-100.0); Mean Platelet Volume 7.4; Monocytes # (A) 0.4 k/uL (0-1.0); Monocytes % (A) 5 %; Neutrophils # (A) 6.3 k/uL (1.3-7.7); Neutrophils % (A) 78 %; Platelet Count 202 k/uL (150-450); RDW 11.7 % (11.5-15.5); WBC 8.1 k/uL (3.8-10.6)
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
[2022-11-04 16:44] LABS: ALT 23 U/L (4-49); AST 28 U/L (17-59); African American GFR (CKD) >90 (>60 ml/min/1.73 sqM); Albumin 4.8 g/dL (3.5-5.0); Alcohol <10 mg/dL; Alkaline Phosphatase 70 U/L (38-126); Anion Gap 9 mmol/L; Blood Urea Nitrogen 10 mg/dL (9-20); Calcium 9.5 mg/dL (8.4-10.2); Carbon Dioxide 27 mmol/L (22-30); Chloride 103 mmol/L (98-107); Glucose 88 mg/dL (74-99); Non-African American GFR(CKD) >90 (>60 ml/min/1.73 sqM); Potassium 3.9 mmol/L (3.5-5.1); Sodium 139 mmol/L (137-145); Total Bilirubin 0.6 mg/dL (0.2-1.3)
[2022-11-04 16:45] LABS: INR 1.1 (<1.2); Partial Thromboplastin Time 25.6 sec (22.0-30.0); Prothrombin Time 11.2 sec (9.0-12.0)
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
[2022-11-04] MEDS ORDERED: LIDOCAINE 5% PATCH TOPICAL SCH (17:15)
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
[2022-11-04 17:49] LABS: Amphetamine Screen,Urine Not Detected (NotDetected); Barbiturate Screen,Urine Not Detected (NotDetected); Benzodiazepines Screen,Urine Not Detected (NotDetected); Cocaine Screen,Urine Not Detected (NotDetected); Methadone Screen, Urine Not Detected (NotDetected); Opiate Screen,Urine Detected (NotDetected); Oxycodone Screen, Urine Not Detected (NotDetected); Phencyclidine Screen,Urine Not Detected (NotDetected); Tricyclic Antidepressant,Urine Not Detected (NotDetected); Urn Cannabinoid Scrn Detected (NotDetected)
== END 2022-11-04 18:18 | disposition home or self-care (01) ==
LOC: EC 15:26
DX: S39.012A Strain of muscle, fascia and tendon of lower back, initial encounter (principal); M43.17 Spondylolisthesis, lumbosacral region; M48.061 Spinal stenosis, lumbar region without neurogenic claudication; F90.9 Attention-deficit hyperactivity disorder, unspecified type; F12.90 Cannabis use, unspecified, uncomplicated; Z23 Encounter for immunization; V69.9XXA Occupant (driver) (passenger) of heavy transport vehicle injured in unspecified traffic accident, initial encounter; Y92.411 Interstate highway as the place of occurrence of the external cause
CPT/HCPCS: 36415; 86900; 86901; 80053; 85025; 85610; 85730; 86850; 80306; 80320; 72170; 71045; 72131; 90715; 99285; 96374; 96361; 90471; J2270

== ENCOUNTER 2024-08-18 01:26 | Emergency (ER) | payer OTHER ==
--- NOTE | 2024-08-18 01:57 | ED ---
Male Urogenital HPI - General Source: patient Mode of arrival: ambulatory Limitations: no limitations <Tammy Rodrigez - Last Filed: 08/18/24 01:56> <Anthony Anderson - Last Filed: 08/18/24 09:46> - History of Present Illness Complaint: other -: hour(s) Location: penis, abdomen Radiation: none Severity: moderate Quality: dull Consistency: constant Improves with: none Worsens with: none Reports: denies other symptoms <Dimitrios Candelario - Last Filed: 08/23/24 01:30> - General Chief complaint: Urogenital Stated complaint: Kidney Stone - History of Present Illness Initial comments: This patient is a 29-year-old man with history of urethral stricture. He states that he had been seen by Dr. Rain here in [facility] for this previously and then he has been following with a urologist out of [place]. Patient states that he had an indwelling Balderas catheter until Monday and that it was discontinued. He states that he has noticed his urine stream becoming weaker and he states he was able to watch the urethra closing. Tonight he stopped passing urine and now he is having suprapubic discomfort. Patient denies fever or chills. No flank pain. (Dimitrios Candelario) - Related Data Home Medications Medication Instructions Recorded Confirmed Baclofen [Lioresal] 10 mg PO BID PRN 12/02/21 12/02/21 Dextroamphetamine/Amphetamine 30 mg PO QAM 12/02/21 12/02/21 [Adderall Xr] HYDROcodone/APAP 5-325MG [[place] 1 tab PO DAILY PRN 12/02/21 12/02/21 5-325] Previous Rx's Medication Instructions Recorded methylPREDNISolone [Medrol Dose 4 mg PO DIRECTED #1 packet 12/02/21 Pack] oxyCODONE HCL/ACETAMINOPHEN 1 tab PO Q8H PRN 2 Days #6 tab 12/02/21 [Percocet 5-325 mg] Lidocaine 5% Patch [Lidoderm 5% 1 each TP DAILY 7 Days #7 patch 11/04/22 Patch] Allergies Allergy/AdvReac Type Severity Reaction Status Date / Time No Known Allergies Allergy Verified 04/02/22 08:19 Review of Systems ROS Other: All systems not noted in ROS Statement are negative. <Tammy Rodrigez - Last Filed: 08/18/24 01:56> ROS Other: All systems not noted in ROS Statement are negative. <Anthony Anderson - Last Filed: 08/18/24 09:46> ROS Other: All systems not noted in ROS Statement are negative. Constitutional: Denies: fever, chills, weakness Respiratory: Denies: cough, dyspnea Cardiovascular: Denies: chest pain, palpitations, edema Gastrointestinal: Reports: abdominal pain. Denies: nausea, vomiting, diarrhea Genitourinary: Reports: as per HPI, dysuria. Denies: testicular pain Musculoskeletal: Denies: back pain Skin: Denies: rash Neurological: Denies: headache, weakness <AndreeDimitrios - Last Filed: 08/23/24 01:30> ROS Statement: Those systems with pertinent positive or pertinent negative responses have been documented in the HPI. Past Medical History Past Medical History: No Reported History Additional Past Medical History / Comment(s): Ulcerative Colitis (2013) dx with colonoscopy. kidney stones. spindolisis History of Any Multi-Drug Resistant Organisms: None Reported Past Surgical History: Cholecystectomy Additional Past Surgical History / Comment(s): Colonoscopy x2, endoscopy Past Psychological History: ADD/ADHD Smoking Status: Never smoker Past Alcohol Use History: Occasional, Rare Past Drug Use History: Marijuana - Past Family History Father Additional Family Medical History / Comment(s): Diverticulitis. <Tammy Rodrigez - Last Filed: 08/18/24 01:56> General Exam Limitations: no limitations <Tammy Rodrigez - Last Filed: 08/18/24 01:56> Limitations: no limitations General appearance: alert, in no apparent distress Head exam: Present: atraumatic, normocephalic Eye exam: Present: normal appearance. Absent: scleral icterus, conjunctival injection Respiratory exam: Present: normal lung sounds bilaterally. Absent: respiratory distress, wheezes, rales, rhonchi, stridor Cardiovascular Exam: Present: regular rate, normal rhythm, normal heart sounds. Absent: systolic murmur, diastolic murmur, rubs, gallop GI/Abdominal exam: Present: soft. Absent: distended, tenderness, guarding, rebound, rigid, mass exam: Present: normal inspection, vertical testicular lie, circumcision. Absent: testicular tenderness, urethral discharge, scrotal swelling Extremities exam: Present: normal inspection, normal capillary refill. Absent: pedal edema, calf tenderness Skin exam: Present: warm, dry, intact, normal color. Absent: rash <Dimitrios Candelario - Last Filed: 08/23/24 01:30> Course Vital Signs 08/18/24 08/18/24 08/18/24 01:30 05:54 08:00 Temperature 97.7 F 97.1 F L Pulse Rate 69 61 78 Respiratory 18 15 20 Rate Blood Pressure 148/101 129/73 150/70 O2 Sat by Pulse 99 96 98 Oximetry 08/18/24 08/18/24 08:36 10:03 Temperature Pulse Rate 68 65 Respiratory 16 20 Rate Blood Pressure 150/70 135/60 O2 Sat by Pulse 98 98 Oximetry Medical Decision Making <Anthony Anderson - Last Filed: 08/18/24 09:46> <Dimitrios Candelario - Last Filed: 08/23/24 01:30> - Medical Decision Making Signed out to me patient will has pending urology evaluation. Patient presented for urinary retention. Has an extensive history and is seeing a reconstructive surgeon for his urethra through [place]. While waiting for urology to evaluate the patient, patient had at least 1 L urine output and feels like what ever was causing his obstruction has improved. Urology Dr. Pruett evaluated the patient and will provide the patient with home straight cath materials and recommended he follow-up with his [place] surgeon on Monday. Patient was in agreement this plan. I instructed the patient to follow up with their PCP in the next 1-3 days. I explained that the patient should return to the emergency department if they experience any worsening symptoms. Strict return precautions were discussed with the patient. The patient expressed understanding of these instructions. I a nswered all questions that the patient had. The patient was discharged home in [good] condition with their prescriptions and follow up information. Diagnosis/symptom? @ -Urinary retention Acute, or Chronic, or Acute on Chronic? @ -Acute on chronic Uncomplicated (without systemic symptoms) or Complicated (systemic symptoms)? @ -Uncomplicated Side effects of treatment? @ -[none] Exacerbation, Progression, or Severe Exacerbation] @ -[no] Poses a threat to life or bodily function? @ -Unlikely at this time (Anthony Anderson) Patient is a 29-year-old male with history of urethral stricture presenting with inability to urinate. The patient's bladder scan greater than 200 mL. I did attempt to place Balderas catheter after instilling Xylocaine 1% jelly in the urethra. The catheter was not able to pass. Case discussed with Dr. Rose, who will come and see the patient. Was pt. sent in by a medical professional or institution (, [facility], [employer], urgent care, hospital, or fpc...) When possible be specific @ -[No] Did you speak to anyone other than the patient for history (EMS, parent, family, police, friend...)? What history was obtained from this source @ -[No] Did you review nursing and triage notes (agree or disagree)? Why? @ -[I reviewed and agree with nursing and triage notes] Were old charts reviewed (outside hosp., previous admission, EMS record, old EKG, old radiological studies, urgent care reports/EKG's, fpc records)? Report findings @ -[No old charts were reviewed] Differential Diagnosis (chest pain, altered mental status, abdominal pain women, abdominal pain men, vaginal bleeding, weakness, fever, dyspnea, syncope, headache, dizziness, GI bleed, back pain, seizure, CVA, palpatations, mental health, musculoskeletal)? @ -[Differential Abdominal Pain Men: Appendicitis, cholecystitis, diverticulosis, ischemic bowel, pancreatitis, hepatitis, UTI, gastroenteritis, AAA, incarcerated hernia, bowel obstruction, constipation, inflammatory bowel, hepatitis, peptic ulcer disease, splenic infarction, perforated viscus, testicular torsion, this is not meant to be an all-inclusive list EKG interpreted by me (3pts min.). @ -[As above] X-rays interpreted by me (1pt min.). @ -[None done] CT interpreted by me (1pt min.). @ -[None done] U/S interpreted by me (1pt. min.). @ -[None done] What testing was considered but not performed or refused? (CT, X-rays, U/S, labs)? Why? @ -[None] What meds were considered but not given or refused? Why? @ -[None] Did you discuss the management of the patient with other professionals (professionals i.e. , [facility], [employer], lab, RT, psych nurse, sexual assault social worker, internal controls manager, teacher, motor equipment commanding officer, case fitter)? Give summary @ -[Case discussed with Dr. Rose Was smoking cessation discussed for >3mins.? @ -[No] Was critical care preformed (if so, how long)? @ -[No] Were there social determinants of health that impacted care today? How? (Homelessness, low income, unemployed, alcoholism, drug addiction, transportation, low edu. Level, literacy, decrease access to med. care, correction, rehab)? @ -[No] Was there de-escalation of care discussed even if they declined (Discuss DNR or withdrawal of care, Hospice)? DNR status @ -[No] What co-morbidities impacted this encounter? (DM, HTN, Smoking, COPD, CAD, Cancer, CVA, ARF, Chemo, Hep., AIDS, mental health diagnosis, sleep apnea, m orbid obesity)? @ -[None] Was patient admitted / discharged? Hospital course, mention meds given and route, prescriptions, significant lab abnormalities, going to OR and other pertinent info. @ -[See above note (Dimitrios Candelario) - Lab Data Lab Results 08/18/24 Range/Units 05:47 Urine Color Colorless Urine Appearance Clear (Clear) Urine pH 6.5 (5.0-8.0) Ur Specific [place] 1.019 (1.001-1.035) Urine Protein Negative (Negative) Urine Glucose (UA) Negative (Negative) Urine Ketones Negative (Negative) Urine Blood Moderate H (Negative) Urine Nitrite Negative (Negative) Urine Bilirubin Negative (Negative) Urine Urobilinogen 2.0 (<2.0) mg/dL Ur Leukocyte Esterase Negative (Negative) Urine RBC 146 H (0-5) /hpf Urine WBC <1 (0-5) /hpf Ur Squamous Epith Cells 1 (0-4) /hpf Amorphous Sediment Rare H (None) /hpf Disposition <Tammy Rodrigez - Last Filed: 08/18/24 01:56> Is patient prescribed a controlled substance at d/c from ED?: No Time of Disposition: 09:45 <Anthony Anderson - Last Filed: 08/18/24 09:46> <Dimitrios Candelario - Last Filed: 08/23/24 01:30> Clinical Impression: Urethral stricture, Urinary retention Disposition: HOME SELF-CARE Condition: Good Additional Instructions: Follow-up with your [facility] surgeon. Return if worsening symptoms. Referrals: Carlos Resendiz MD [Primary Care Provider] - 1-2 days Bert Rose MD [STAFF PHYSICIAN] - 1-2 days
[2024-08-18] MEDS: LIDOCAINE 2% URO-JET JELLY 5 ML KIT URETHRAL ONE (02:23)
[2024-08-18 05:57] VITALS: TEMP 97.1
[2024-08-18 06:27] LABS: Amorphous Sediment,Urine Rare /hpf; Appearance,Urine Clear (Clear); Bilirubin,Urine Negative (Negative); Blood,Urine Moderate (Negative); Color,Urine Colorless; Glucose,Urine (UA) Negative (Negative); Ketones,Urine Negative (Negative); Leukocyte Esterase,Urine Negative (Negative); Nitrite,Urine Negative (Negative); PH, Urine 6.5 (5.0-8.0); Protein,Urine Negative (Negative); RBC,Urine 146 /hpf (0-5); Specific Gravity,Urine 1.019 (1.001-1.035); Squamous Epithelial Cell,Urine 1 /hpf (0-4); WBC,Urine <1 /hpf (0-5)
[2024-08-18 10:05] VITALS: BP 135/60; PULSE 65; RESP 20
--- NOTE | 2024-08-18 10:51 | P.GSCN ---
History of Present Illness Consult date: 08/18/24 Reason for Consult: Urinary retention, meatal stenosis History of present illness: This is a 29-year-old male patient of Dr. Rain that presented to the ER with difficulty voiding. He has a known history of meatal stricture, status post ur ethral dilation in the office, and he was subsequently referred to Dr. Brody at [facility] with plan to undergo definitive repair of his meatal stenosis stricture. He indicated he did have a catheter placed Dr. Stephens's office, subsequently was removed last week, indicated he was initially able to void but then had difficulty voiding was only able to dribble small amount of urine. Denies any gross hematuria, but is having dysuria with voiding. Initially in the ER his bladder scan was elevated and was having significant difficulty voiding, subsequently has been able to void in the ER with minimal difficulties. Review of Systems - Constitutional Denies fever, Denies weight loss - EENT Ears, nose, mouth and throat: Denies dysphagia - Cardiovascular Denies chest pain, Denies shortness of breath - Gastrointestinal Reports as per HPI - Genitourinary Reports dysuria Past Medical History Past Medical History: No Reported History Additional Past Medical History / Comment(s): Ulcerative Colitis (2013) dx with colonoscopy. kidney stones. spindolisis History of Any Multi-Drug Resistant Organisms: None Reported Past Surgical History: Cholecystectomy Additional Past Surgical History / Comment(s): Colonoscopy x2, endoscopy Past Psychological History: ADD/ADHD Smoking Status: Never smoker Past Alcohol Use History: Occasional, Rare Past Drug Use History: Marijuana - Past Family History Father Additional Family Medical History / Comment(s): Diverticulitis. Medications and Allergies Home Medications Medication Instructions Recorded Confirmed Type Baclofen [Lioresal] 10 mg PO BID PRN 12/02/21 12/02/21 History Dextroamphetamine/Amphetamine 30 mg PO QAM 12/02/21 12/02/21 History [Adderall Xr] HYDROcodone/APAP 5-325MG [[place] 1 tab PO DAILY PRN 12/02/21 12/02/21 History 5-325] methylPREDNISolone [Medrol Dose 4 mg PO DIRECTED #1 packet 12/02/21 Rx Pack] oxyCODONE HCL/ACETAMINOPHEN 1 tab PO Q8H PRN 2 Days #6 tab 12/02/21 Rx [Percocet 5-325 mg] Lidocaine 5% Patch [Lidoderm 5% 1 each TP DAILY 7 Days #7 patch 11/04/22 Rx Patch] Allergies Allergy/AdvReac Type Severity Reaction Status Date / Time No Known Allergies Allergy Verified 04/02/22 08:19 Surgical - Exam Vital Signs Temp Pulse Resp BP Pulse Ox 97.7 F 69 18 148/101 99 08/18/24 01:30 08/18/24 01:30 08/18/24 01:30 08/18/24 01:30 08/18/24 01:30 - General no distress, no pain - Eyes normal ocular movement, no pale - ENT normal nares, normal mucosa - Respiratory normal expansion, normal respiratory effort - Abdomen Abdomen: soft, non tender - Genitourinary Normal phallus, evidence of meatal stricture - Psychiatric oriented to time, oriented to person, oriented to place Results - Labs Abnormal Lab Results - Last 24 Hours (Table) 08/18/24 Range/Units 05:47 Urine Blood Moderate H (Negative) Urine RBC 146 H (0-5) /hpf Amorphous Sediment Rare H (None) /hpf Assessment and Plan Assessment: 29-year-old male with history of meatal stenosis, causing difficulty voiding but now he is able to void on exam there is evidence of stenosis of the meatus, discussed with him the option of dilation with the [place] sounds, he refused to undergo any type of dilation at this time. Discussed with him he is able to void at this time and we can closely observe but he will require definitive repair of the stricture. At this point he was agreeable only to dilating the meatus with a 10 [place] silicone catheter which I performed, there was some d ifficulty advancing the catheter. Patient refused to try any larger size catheters. discussed with him this will not provide permanent solution to the problem and will be only a temporizing measure to allow him to empty out his bladder until he goes definitive repair. -He was taught how to do meatal dilation with a 10 [place] silicone catheter, and was provided with 1. Advised him to perform that daily until a definitive repair is done -Follow-up with Dr. Brody at [facility] for urethroplasty -He is okay for discharge from urology standpoint
== END 2024-08-18 10:04 | disposition home or self-care (01) ==
LOC: EC 01:26
CPT/HCPCS: 51798; 81001; 99284

== ENCOUNTER 2025-05-11 21:00 | Emergency (ER) | payer OTHER ==
[2025-05-11 22:36] VITALS: RESP 18
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
[2025-05-11 23:37] LABS: Basophils # (A) 0.02 10*3/uL (0.00-0.10); Basophils % (A) 0.2 %; HCT 45.5 % (39.6-50.0); HGB 16.2 g/dL (13.0-17.0); Lymphocytes # (A) 0.55 10*3/uL (0.90-5.00); Lymphocytes % (A) 6.4 %; MCH 31.5 pg (27.0-32.0); MCHC 35.6 g/dL (32.0-37.0); MCV 88.3 fL (80.0-97.0); Mean Platelet Volume 9.6 fL (9.5-12.2); Monocytes # (A) 0.23 10*3/uL (0.20-1.00); Monocytes % (A) 2.7 %; Neutrophils # (A) 7.79 10*3/uL (1.80-7.70); Neutrophils % (A) 90.4 %; Platelet Count 239 10*3/uL (140-440); RBC 5.15 10*6/uL (4.40-5.60); RDW 11.9 % (11.5-14.5); WBC 8.62 10*3/uL (4.50-10.00)
--- NOTE | 2025-05-11 23:54 | CT ---
EXAM: CT Head and Maxillofacial Without Intravenous Contrast CLINICAL HISTORY: ITS.REASON CT Reason: head injury TECHNIQUE: Axial computed tomography images of the head/brain and face without intravenous contrast. CTDI is 0 mGy and DLP is 0 mGy-cm. This CT exam was performed using one or more of the following dose reduction techniques: automated exposure control, adjustment of the mA and/or kV according to patient size, and/or use of iterative reconstruction technique. COMPARISON: No relevant prior studies available. FINDINGS: Brain: Unremarkable. No hemorrhage. No significant white matter disease. No edema. 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 Ventricles: Unremarkable. No ventriculomegaly. Bones/joints: No acute fracture. Soft tissues: Mild soft tissue swelling over the left forehead. Sinuses: Unremarkable as visualized. No acute sinusitis. Mastoid air cells: Unremarkable as visualized. No mastoid effusion. Orbits: Unremarkable as visualized. IMPRESSION: No evidence of acute intracranial pathology.
[2025-05-11 23:59] LABS: ALT 56 U/L (4-49); AST 52 U/L (17-59); African American GFR (CKD) >90 (>60 ml/min/1.73 sqM); Albumin 4.9 g/dL (3.5-5.0); Alkaline Phosphatase 85 U/L (38-126); Anion Gap 11 mmol/L; Blood Urea Nitrogen 11 mg/dL (9-20); Calcium 9.8 mg/dL (8.4-10.2); Carbon Dioxide 21 mmol/L (22-30); Chloride 107 mmol/L (98-107); Glucose 130 mg/dL (74-99); Non-African American GFR(CKD) >90 (>60 ml/min/1.73 sqM); Potassium 4.5 mmol/L (3.5-5.1); Sodium 139 mmol/L (137-145); Total Bilirubin 1.4 mg/dL (0.2-1.3); Total Protein 8.1 g/dL (6.3-8.2)
--- NOTE | 2025-05-12 00:16 | CT ---
EXAM: CT Head Without Intravenous Contrast CLINICAL HISTORY: ITS.REASON CT Reason: pain TECHNIQUE: Axial computed tomography images of the head/brain without intravenous contrast. CTDI is 5.8 mGy and DLP is 737.4 mGy-cm. This CT exam was performed using one or more of the following dose reduction techniques: automated exposure control, adjustment of the mA and/or kV according to patient size, and/or use of iterative reconstruction technique. COMPARISON: No relevant prior studies available. FINDINGS: Brain: Unremarkable. No hemorrhage. No significant white matter disease. No edema. Ventricles: Unremarkable. No ventriculomegaly. Bones/joints: Unremarkable. No acute fracture. Soft tissues: Unremarkable. Sinuses: Unremarkable as visualized. No acute sinusitis. Mastoid air cells: Unremarkable as visualized. No mastoid effusion. IMPRESSION: No evidence of acute intracranial pathology. EXAM: CT Cervical Spine Without Intravenous Contrast CLINICAL HISTORY: ITS.REASON CT Reason: pain TECHNIQUE: Axial computed tomography images of the cervical spine without intravenous contrast. CTDI is 13.2 mGy and DLP is 357.3 mGy-cm. This CT exam was performed using one or more of the following dose reduction techniques: automated exposure control, adjustment of the mA and/or kV according to patient size, and/or use of iterative reconstruction technique. COMPARISON: No relevant prior studies available. FINDINGS: Vertebrae: Unremarkable. No acute fracture. Discs/spinal canal/neural foramina: No acute findings. No spinal canal stenosis. Soft tissues: Prominent cervical lymph nodes and lingual tonsils. IMPRESSION: No evidence of acute cervical spine pathology.
[2025-05-12 01:00] VITALS: BP 146/94; PULSE 60; TEMP 98
== END 2025-05-12 01:00 | disposition home or self-care (01) ==
LOC: EC 21:00
DX: S09.90XA Unspecified injury of head, initial encounter (principal); R56.9 Unspecified convulsions; Y04.0XXA Assault by unarmed brawl or fight, initial encounter
CPT/HCPCS: 36415; 70450; 70486; 72125; 80053; 83605; 85025; 93005; 99284